=== PATIENT | male | born 1950 | race Caucasian/White ===

== ENCOUNTER 2018-07-09 11:38 | Outpatient (CLI) | payer MEDICARE, OTHER, SELFPAY ==
[2018-07-09 12:59] LABS: Hemoglobin A1C 6.4 % (4.5-6.2)
== END 2018-07-09 11:58 ==
LOC: LBO 11:39 → LOS 11:53
PROVIDERS: PCP Family Medicine; Visit Provider Family Medicine
DX: E11.9 Type 2 diabetes mellitus without complications (principal)
CPT/HCPCS: 36415; 83036

== ENCOUNTER 2019-01-13 10:28 | Outpatient (CLI) | payer MEDICARE, OTHER, SELFPAY ==
[2019-01-13 13:19] LABS: CREATININE 1.04 mg/dL (0.70-1.30); Potassium 4.3 mmol/L (3.5-5.1)
[2019-01-13 13:31] LABS: Hemoglobin A1C 6.8 % (4.5-6.2)
== END 2019-01-13 10:48 ==
PROVIDERS: PCP Family Medicine; Visit Provider Family Medicine
DX: E11.9 Type 2 diabetes mellitus without complications (principal)
CPT/HCPCS: 36415; 82565; 83036; 84132

== ENCOUNTER 2019-05-01 09:39 | Outpatient (CLI) | payer MEDICARE, OTHER, SELFPAY ==
--- NOTE | 2019-05-01 09:40 | DI.RAD_ITS ---
SYMPTOM/DIAGNOSIS: WORSENING CHRONIC LBP M54.9, DORSALGIA LUMBAR SPINE: There are prominent osteophytes in the lower thoracic region projecting anteriorly and toward the right. Prominent osteophytes are also seen in the lower lumbar spine, at L4-5 and L5- S1. There has been a previous L5 laminectomy. The disc spaces are relatively well maintained. There is no scoliosis or spondylolisthesis. IMPRESSION: Severe degenerative changes. Previous surgery of the lower lumbar spine.
== END 2019-05-01 09:59 ==
PROVIDERS: PCP Family Medicine; Visit Provider Family Medicine
DX: M54.5 Low back pain (principal); Z98.890 Other specified postprocedural states; M47.817 Spondylosis without myelopathy or radiculopathy, lumbosacral region
CPT/HCPCS: 72110

== ENCOUNTER 2019-07-14 10:47 | Outpatient (CLI) | payer MEDICARE, OTHER, SELFPAY ==
[2019-07-14 14:02] LABS: Hemoglobin A1C 6.1 % (4.5-6.2)
== END 2019-07-14 11:07 ==
PROVIDERS: PCP Family Medicine; Visit Provider Family Medicine
DX: E11.65 Type 2 diabetes mellitus with hyperglycemia (principal); E11.8 Type 2 diabetes mellitus with unspecified complications
CPT/HCPCS: 36415; 83036

== ENCOUNTER 2020-04-01 03:02 | Outpatient (CLI) | payer OTHER, MEDICARE, SELFPAY ==
[2020-04-01 09:32] LABS: COMMENT (LAB VIEW ONLY) 84.86 mg/dL; Microalb ug/mg Crea 6.2 ug/mg Cr
[2020-04-01 09:48] LABS: Hemoglobin A1C 6.2 % (3.8-5.6)
[2020-04-01 09:53] LABS: CREATININE 1.15 mg/dL (0.70-1.30); Potassium 4.3 mmol/L (3.5-5.1)
== END 2020-04-01 03:22 ==
PROVIDERS: PCP Family Medicine; Visit Provider Family Medicine
DX: E11.9 Type 2 diabetes mellitus without complications (principal); R73.9 Hyperglycemia, unspecified
CPT/HCPCS: 36415; 82043; 82565; 82570; 83036; 84132

== ENCOUNTER 2021-01-17 22:07 | Outpatient (REF) | payer OTHER, SELFPAY ==
[2021-01-17 22:11] LABS: Hemoglobin A1C 6.6 % (<5.7)
[2021-01-17 22:16] LABS: CREATININE 1.1 mg/dL (0.70-1.30); Calculated LDL 87 mg/dL (<100); Cholesterol 175 mg/dL (<200); HDL Cholesterol 71 mg/dL (40-60); Potassium 4.3 mmol/L (3.5-5.1); Triglyceride 87 mg/dL (<150)
== END 2021-01-17 22:08 | disposition home or self-care (01) ==
LOC: LBN 22:07
PROVIDERS: PCP Family Medicine; Visit Provider Family Medicine
DX: I10 Essential (primary) hypertension (principal); E78.5 Hyperlipidemia, unspecified; R73.9 Hyperglycemia, unspecified
CPT/HCPCS: 80061; 82565; 83036; 84132

== ENCOUNTER → 2021-02-24 08:16 | Outpatient (BNVA) | payer OTHER, SELFPAY | PROVIDERS: PCP Family Medicine; Referring Provider Family Medicine; Visit Provider Student in an Organized Health Care Education/Training Program ==

== ENCOUNTER 2021-02-24 15:29 | Outpatient (CLI) | payer OTHER, SELFPAY ==
--- NOTE | 2021-02-24 08:45 | DI.RAD_ITS ---
Exam(s) XR HIP PELVIS ADULT BL EXAM: XR HIP PELVIS ADULT BL CLINICAL HISTORY: eval bilateral hip pain, low back pain, M54.5, M25.551, M25.552. TECHNIQUE: 2D digital imaging was performed. COMPARISON: CT RENAL COLIC WO CONTRAST from 10/18/2013 CR XR lumbar spine complete from 05/01/2019 FINDINGS: There are degenerative changes in the hips bilaterally with joint space narrowing and periarticular s purring present. Postsurgical and/or posttraumatic changes are again seen in the left femur which ar e unchanged. No acute fracture or dislocation is seen. Sacroiliac joints and symphysis pubis are in tact. No suspicious lytic or sclerotic lesions are seen. Dystrophic calcifications are again seen i n the soft tissues adjacent to the left hip. IMPRESSION: Mild degenerative changes in the hips bilaterally. Stable posttraumatic and/or postsurgical changes in the left femur. DATA REPOSITORY: RADIATION DOSE DELIVERED:
--- NOTE | 2021-02-24 08:45 | DI.RAD_ITS ---
Exam(s) XR LUMBAR SPINE COMPLETE EXAM: XR LUMBAR SPINE COMPLETE CLINICAL HISTORY: low back and buttock pain, h/o surgery, M54.5, Darío hip pain, M25.551,. TECHNIQUE: 2D digital imaging was performed. COMPARISON: CR XR lumbar spine complete from 05/01/2019 FINDINGS: There are 5 lumbar type vertebral bodies. No acute fractures or subluxations. No spondylolysis or s pondylolisthesis. The disc heights are well maintained. There are endplate osteophytes throughout t he lumbar spine. Degenerative changes of the facets are seen at L3-4, L4-5 and L5-S1. Vascular calc ifications are present. IMPRESSION: Moderate degenerative changes in the lumbar spine. DATA REPOSITORY: RADIATION DOSE DELIVERED:
== END 2021-02-24 15:49 ==
PROVIDERS: PCP Family Medicine; Visit Provider Student in an Organized Health Care Education/Training Program
DX: M54.5 Low back pain (principal); M25.551 Pain in right hip; M25.552 Pain in left hip; Z98.890 Other specified postprocedural states; M47.817 Spondylosis without myelopathy or radiculopathy, lumbosacral region; M16.0 Bilateral primary osteoarthritis of hip; M47.816 Spondylosis without myelopathy or radiculopathy, lumbar region; E11.69 Type 2 diabetes mellitus with other specified complication
CPT/HCPCS: 73521; 99203; 72110

== ENCOUNTER 2021-03-17 03:25 | Outpatient (CLI) | payer OTHER, SELFPAY ==
--- NOTE | 2021-03-17 09:45 | DI.MRI_ITS ---
Exam(s) MR LUMBAR SPINE WO EXAM: MR LUMBAR SPINE WO INDICATION: low back pain, lumbar spondylosis, m47.816. COMPARISON: CR XR lumbar spine complete from 05/01/2019 CR XR lumbar spine complete from 05/01/2019 TECHNIQUE: MR examination of the lumbosacral spine was performed according to the usual protocol. FINDINGS: There is no evidence of a fracture in the lumbar region. There are prominent Schmorl's nodes of the L 3 vertebral body with associated vertebral signal abnormality consistent with disc degeneration. There is a bilateral L5 spondylolysis with approximately 10 percent anterior spondylolisthesis of L5 on S1. S1 is partially lumbarized. There is a prior laminectomy. The conus medullaris appears intact. There is an unremarkable appearance of the intervertebral discs, spinal canal, and neural foramina at T11-12, T12-L1, and L1-2. Changes of disc degeneration noted at L2-3 without associated disc herniation, central canal spinal s tenosis, or neural foraminal stenosis At L3-4, there is mild disc bulge and there is moderate facet hypertrophy, there is moderate central canal spinal stenosis at this level. The left neural foramen is mildly narrowed. Right neural obed en appears intact. At L4-5, there is disc bulge without focal disc herniation. There is bilateral neural foraminal sten osis. There is borderline central canal stenosis. At L5-S1, there is bilateral neural foraminal stenosis. Spinal canal appears widely patent. No disc herniation. IMPRESSION: Multilevel degenerative changes and prior laminectomy at L4-5 and L5-S1. Multilevel neural foraminal and central spinal canal narrowing, please see above discussion for findi ngs at individual levels.
== END 2021-03-17 03:45 ==
PROVIDERS: PCP Family Medicine; Visit Provider Student in an Organized Health Care Education/Training Program
DX: M47.816 Spondylosis without myelopathy or radiculopathy, lumbar region (principal); M51.36 Other intervertebral disc degeneration, lumbar region
CPT/HCPCS: 72148

== ENCOUNTER 2021-04-13 00:35 | Outpatient (CLI) | payer OTHER, SELFPAY ==
--- NOTE | 2021-04-13 08:45 | DI.RAD_ITS ---
Exam(s) RF JOINT INJECTION FLUORO GUID EXAM: RF JOINT INJECTION FLUORO GUID CLINICAL HISTORY: R HIP PAIN,PRIMARY OA,M25.551 TECHNIQUE: Fluoroscopy provided. Radiologist not present. CONTRAST MATERIAL: None COMPARISON: No exams were available for comparison FINDINGS: Fluoroscopy was provided for Dr. Lee during right hip joint injection. Submitted image(s) reveal placement of needle into the articular aspect of the hip at the level of th e lateral femoral head. Intra-articular contrast is injected Please refer to the procedure report for complete details. Cumulative Dose: wili Cadena=1.25 mGy IMPRESSION: RADIATION DOSE DELIVERED:
--- NOTE | 2021-04-13 15:23 | W.PROCNOTE ---
Date of service: 04/13/21 Time of Service: 15:23 Procedure Note Date of procedure: 04/13/21 Procedure: Right Hip Injection with Fluoroscopic Guidance Surgeon/Proceduralist/Physician: Donell Lee Procedure Diagnosis: Right Hip Osteoarthritis Procedure Indications: Storm has had persistent pain of the RIGHT hip and groin. Noninvasive measures have been tried. To serve as both diagnostic and therapeutic, an injection under fluoroscopy was recommended. I had discussed the risks of the procedure and the patient elected to proceed. Procedure Description: Storm was greeted in the flouroscopy room. The correct side was identified and the consent was reviewed with the patient and signed. The patient was then placed in the supine position on the fluoroscopy table. The RIGHT hip was then prepped with Chloraprep. The anterolateral injection starting point was identiifed by bony landmarks and fluoroscopy. The skin and soft tissue in the tract of the injection was anesthetized with 1% Lidocaine. A spinal needle was then inserted deep into the hip joint at the level of the lateral femoral neck under fluoroscopic guidance. A small amount of Omnipaque solution was injected to confirm intraarticular placement. Once confirmed, the hip was injected with 6cc of 0.5% Bupivicaine and 80mg of Depo-Medrol. A bandaid was placed on the injection site. The patient tolerated the procedure well and noted improvement in pre-injection pain.
[2021-04-13] MEDS: Bupivacaine 0.5% Pres-Free 10 ML VIAL IJ (15:28)
[2021-04-13] MEDS: Omnipaque 300 MG/ML 10 ML BTL IJ (15:29)
[2021-04-13] MEDS: methylPREDNISolone ACETATE 80 MG/ML VIAL IM (15:29)
== END 2021-04-13 00:55 ==
PROVIDERS: PCP Family Medicine; Visit Provider Student in an Organized Health Care Education/Training Program
DX: M16.11 Unilateral primary osteoarthritis, right hip (principal); M25.551 Pain in right hip; R10.31 Right lower quadrant pain
CPT/HCPCS: 20610; 77002; J1040

== ENCOUNTER → 2021-05-04 08:25 | Outpatient (BNVA) | payer OTHER, SELFPAY | PROVIDERS: PCP Family Medicine; Referring Provider Family Medicine; Visit Provider Student in an Organized Health Care Education/Training Program | DX: M54.31 Sciatica, right side (principal); M47.816 Spondylosis without myelopathy or radiculopathy, lumbar region; M16.0 Bilateral primary osteoarthritis of hip; Z98.890 Other specified postprocedural states | CPT/HCPCS: 99213 ==

== ENCOUNTER 2023-01-23 10:02 | Outpatient (CLI) | payer MEDICARE, SELFPAY ==
[2023-01-23 12:46] LABS: CREATININE 1.2 mg/dL (0.70-1.30); Calculated LDL 79 mg/dL (<100); Cholesterol 174 mg/dL (<200); Estimated GFR 64.65 (mL/min/1.73m2); HDL Cholesterol 69 mg/dL (40-60); Potassium 4.6 mmol/L (3.5-5.1); Triglyceride 130 mg/dL (<150)
== END 2023-01-23 10:03 | disposition home or self-care (01) ==
LOC: LOS 10:03
PROVIDERS: PCP Family Medicine; Visit Provider Family Medicine
DX: I10 Essential (primary) hypertension (principal); E78.5 Hyperlipidemia, unspecified
CPT/HCPCS: 36415; 80061; 82565; 84132

== ENCOUNTER 2023-04-15 01:18 | Outpatient (CLI) | payer MEDICARE, SELFPAY ==
--- NOTE | 2023-04-15 08:00 | DI.NM_ITS ---
APPROVED REPORT Exam: Pharmacologic Patient Location: Out-Patient Room/Bed: Stress Nurse: Avril Aguillon RN Ordering Provider:TIFFANIE HOOVER, Contact Number: [phone] BMI: 34.60 Baseline Rhythm: Sinus Bradycardia Indications: PERALTA, Chest pain Medical History Medical History: ETOH abuse, DM, BPH, back pain, COPD, Depression, ED, fatigue, sleep apnea, previous smoker (quit 2001) Cardiac Medications: Tamsulosin, losartan, duloxetine Allergies: Serotonin 5HT-3 antagonist, ipatropium, clindamycin, nabumetone, SSRI's Cardiac Risk Factors: Family hx, diabetes, former smoker, obesity Previous Cardiac Procedures: None Pretest Chest Pain Characteristics: None Exercise History: Sedentary Physical Disabilities: Left arm and left leg Lung Sounds: Clear to auscultation Heart Sounds: Bradycardia Stress Test Details Test: Exercise stress converted to pharmacologic stress due to failure to obtain a diagnostic stress test. Reason for pharmacologic stress test: changed from exercise stress test due to inability to reach t arget heart rate. Nuclear Acquisition: Rest Tc-99m/Stress Tc-99m 1 day Rest Isotope: Tc-99m Sestamibi. Dose: 11.0 Date: 04/15/2023 Injection Time: 1107 Stress Isotope: Tc-99m Sestamibi. Dose: 33.5 Date: 04/15/2023 Injection Time: 1300 HR Resting HR Supine: 51 bpm Max Heart Rate (APMHR): 149.844773 bpm Resting HR Standin bpm Target HR (85% APMHR): 126.099040 bpm Max HR Achieved: 119 bpm % of APMHR: 79.87 Recovery HR: 81 bpm HR response to stress: Blunted HR response to stress BP Resting BP Supine: 122/76 mmHg Resting BP Standin/68 mmHg Max BP: 162/74 mmHg Recovery BP: 132/68 mmHg BP response to stress: Normal blood pressure response to stress. ECG Resting ECG: Sinus Bradycardia Ectopy: Rare PVC Stress ECG: Sinus Tachycardia ST Change: Nondiagnostic low heart rate Arrhythmia: Rare PVC Recovery ECG: Sinus Rhythm Recovery ST Change: Nondiagnostic low heart rate Recovery Arrhythmia: Rare PVC Clinical Reason for Termination: Fatigue, Dyspnea Stress Symptoms: Dyspnea, General Fatigue Highest Stage Reached: Stage 2: 2.5 mph at 12% grade. Angina Score: None Rate Pressure Product: [id number] Stress ECG Conclusion 1. Resting electrocardiogram was within normal limits 2. Patient underwent testing using a combination of low-level exercise and pharmacologic stress with regadenoson 3. Peak heart rate achieved was 80% of predicted for age 4. The electrocardiographic portion of the test was nondiagnostic 5. See MPI report Stevens Treadmill Score is which is Low risk. Stress Test Summary STAGE Time (mins) Speed (mph) Grade (%) HR BP SpO2 SYMPTOMS METS Supine 51 122/76 95 Standing 57 122/68 95 1 3 1.7 10 103 142/87 88 Mod SOB 4.5 2 6 2.5 12 110 Mod-severe SOB, fatigue 7 1 min post Lexiscan injection 111 140/90 SOB resolved 3 min post Lexiscan injection 81 162/74 6 min post Lexiscan injection 71 132/68 97 Patient transitioned to walking renee at a speed on 1.0 mph and 0% grade due to inability to reach tar get HR dues to fatigue and SOB. MPI Conclusion Myocardial perfusion is normal. There is no ischemia or evidence of prior infarction EF 66%, wall motion is normal Radiologist Interpretation Radiologist agrees with Traveling Engineer's Interpretation. Radiologist Interpretation by: Kayli Malcolm MD Interpretation Date/Time: 04/15/2023 16:34:09
[2023-04-15] MEDS: Regadenoson 0.4 MG/5 ML SYR IVP (13:31)
== END 2023-04-15 01:38 ==
LOC: DI 01:18
PROVIDERS: PCP Family Medicine; Visit Provider Family Medicine
DX: R07.9 Chest pain, unspecified (principal)
CPT/HCPCS: 78452; 93016; 93018; 93017; J2785

== ENCOUNTER → 2023-06-12 08:04 | Outpatient (BNVA) | payer MEDICARE, SELFPAY | PROVIDERS: PCP Family Medicine; Referring Provider Family Medicine; Visit Provider Nurse Practitioner Adult Health | DX: G56.01 Carpal tunnel syndrome, right upper limb (principal) | CPT/HCPCS: 95908; 99203; 99214 ==

== ENCOUNTER 2023-06-25 12:44 | Emergency (ER) | payer MEDICARE, SELFPAY ==
[2023-06-25 12:48] VITALS: BP 122/57; PULSE 66; RESP 18; TEMP 36.8; O2SAT 99
--- NOTE | 2023-06-25 13:23 | ED.GENADUL_ITS ---
Discharge Plan Disposition Patient Disposition: Home Discharge Details Clinical Impression: Open finger fracture Primary Care Provider: Deandre Hernandez ED Provider: Sultana Mendoza Home Meds and New Rx's Prescriptions: New cephalexin 500 mg capsule 500 mg PO Q6H 7 Days Qty: 28 0RF Continued methylcellulose (laxative) Powder See Rx Instructions PO DAILY Patient Comments: 1 tsp PO BID; Rx Instructions: 1 tsp PO daily; (DME) blood-glucose meter [OneTouch UltraMini] 1 EACH kit 1 ea Miscellaneous DAILY Qty: 1 (DME) lancets [OneTouch UltraSoft Lancets] 1 EACH misc 1 ea Miscellaneous DAILY Qty: 100 Rx Instructions: pls dispense ultra mini lancets. Dx: TYpe II DM acetaminophen [Tylenol] 325 MG tablet 650 mg PO PRN Patient Comments: 16 pt states he is taking this around 9am, 2pm, hs sometimes 4hprn.HE ibuprofen 200 MG capsule 600 mg PO HS PRN (DME) OneTouch Ultra Blue Test Strip Strip See Rx Instructions .ROUTE .MEDSUPPLY Qty: 100 3RF Rx Instructions: test daily triamcinolone acetonide 0.1 % cream 1 applic Topical BID PRN (Reason: rash) Qty: 45 1RF Rx Instructions: apply to rash on testicles BID prn duloxetine 30 mg capsule,delayed release(DR/EC) 30 mg PO BID Qty: 180 3RF losartan 25 mg tablet 25 mg PO DAILY Qty: 90 3RF tamsulosin 0.4 mg capsule 0.8 mg PO HS Qty: 180 3RF Rx Instructions: dose increase 05/14/ MJS Discharge Instructions Instructions: Finger Fracture (ED) Additional Instructions: Keep wound clean and dry Keep in bulky dressing for the next several days Call orthopedics if you do not hear from them tomorrow for follow-up Take the antibiotic every 6 hours while awake Have given you several tablets of oxycodone, take this for pain uncontrolled with Tylenol Should you develop fever, chills, worsening pain, please return to the emergency department Referrals: Donell Lee MD [ [facility] STAFF PHYSICIAN] - Discharge Data Discharge Date/Time-TO BE ENTERED AT DEPARTURE: 06/25/23 15:44 Medical Decision Making 73-year-old gentleman presents with injury to right second through fourth digits on a circular saw just prior to arrival. Tetanus up-to-date. Third finger feels popping sensation and deep is laceration, able to flex and extend completely, neurovascularly intact, superficial lacerations to the PIP of the fourth and second digits as well Case discussed with Dr. Lee, recommends washout and suture, will place bulky dressing in the setting of active bleeding and wait for splint placement at this time We will refer back to orthopedics We will place on Keflex, first dose given in the emergency department Tetanus up-to-date Return precautions reviewed and patient expressed understanding Medical Records Medical records reviewed: Yes I reviewed the patient's medical records. HPI General Date/Time Provider Initiated Documentation: 06/25/23 13:02 . HPI Narrative: This 73-year-old male presents with laceration to right third digit. Denies any additional injuries. States he hears a popping sensation when he flexes and extends his finger. States the injury occurred with saw circular saw. Tetanus up-to-date. States he is able to feel sensation distally. Event occurred just prior to arrival. Related Data Home Medications Medication Instructions Recorded Confirmed blood-glucose meter (OneTouch ##1 07/11/15 06/25/23 UltraMini kit) lancets (OneTouch UltraSoft #100 ea 07/13/15 06/25/23 Lancets) acetaminophen 325 mg tablet 650 mg PO PRN 10/31/15 06/25/23 (Tylenol) ibuprofen 200 mg capsule 600 mg PO HS PRN 01/10/18 06/25/23 methylcellulose (laxative) See Rx Instructions PO DAILY 01/15/20 06/25/23 blood sugar diagnostic (OneTouch #100 ea 10/06/20 06/25/23 Ultra Blue Test Strip) triamcinolone acetonide 0.1 % 1 applic topical BID PRN rash #45 05/21/22 06/25/23 topical cream grams duloxetine 30 mg capsule,delayed 30 mg PO BID #180 caps 01/14/23 06/25/23 release losartan 25 mg tablet 25 mg PO DAILY #90 tabs 02/07/23 06/25/23 tamsulosin 0.4 mg capsule 0.8 mg PO HS #180 caps 05/04/23 06/25/23 cephalexin 500 mg capsule 500 mg PO Q6H 7 days #28 caps 06/25/23 Previous Rx's Medication Instructions Recorded blood sugar diagnostic (OneTouch #100 ea 10/06/20 Ultra Blue Test Strip) triamcinolone acetonide 0.1 % 1 applic topical BID PRN rash #45 05/21/22 topical cream grams duloxetine 30 mg capsule,delayed 30 mg PO BID #180 caps 01/14/23 release losartan 25 mg tablet 25 mg PO DAILY #90 tabs 02/07/23 tamsulosin 0.4 mg capsule 0.8 mg PO HS #180 caps 05/04/23 cephalexin 500 mg capsule 500 mg PO Q6H 7 days #28 caps 06/25/23 Allergies Allergy/AdvReac Type Severity Reaction Status Date / Time Serotonin 5HT-3 Antagonists Allergy Unknown did not Verified 06/27/23 11:17 affect breathing, unsure of reaction Ipratropium Analogues AdvReac Intermediate sore throat Verified 06/27/23 11:17 clindamycin AdvReac Mild Nausea Verified 06/27/23 11:17 nabumetone AdvReac Mild Nausea Verified 06/27/23 11:17 General Stated Complaint: Laceration MARZENA: 4 PFSH All Active Problems (Updated 06/25/23 @ 15:31 by MARY Rosa) Open finger fracture (Acute) Type II diabetes mellitus with complication, uncontrolled (Chronic 02/17/08) Tobacco use disorder (Acute) stopped smoking 11/29/01 Swollen breast (Acute 05/27/05) 0.5 cm mass at 5 o'clock Spinal stenosis (Acute 03/01/11) Sleep apnea (Acute 11/02/09) Shoulder pain (Acute 12/25/05) MRI 12/31; supraspinatus tear on greater tubercle Rotator cuff tear, right (Acute 05/13/15) Lumbago (Acute 09/26/01) MRI 04/28=severe spinal stenosis Knee pain (Acute) left cruciate tear Fatigue (Acute) ED (erectile dysfunction) (Acute 06/13/09) Depression (Acute) Cystitis, acute (Acute 09/26/00) x 3 Chest pain (Acute 09/26/97) Presumed reflux Cerebral palsy (Acute 09/28/08) Cataract (Acute) left IOL Calculus of kidney (Acute) recurrent UTI's w/ left nephrolithiasis COPD (chronic obstructive pulmonary disease) (Acute 06/13/09) BPH without urinary obstruction (Acute) Diabetes mellitus (Chronic) Back pain (Chronic) likely recurrent spinal stenosis Status post wrist surgery (Acute) Status post foot surgery (Acute) Status post bunionectomy (Acute) History of toe surgery (Acute) Chronic prostatitis (Acute) Otitis media, left (Acute) Sensation of fullness in left ear (Acute) Acute diffuse otitis externa of left ear (Acute) Abnormal auditory perception (Acute) Bilateral hip pain (Acute) Bilateral primary osteoarthritis of hip (Acute) Lumbar spondylosis (Acute) Right sided sciatica (Acute) Alcohol intake above recommended sensible limits (Acute) Family history of pancreatic cancer (Acute) Dizziness (Acute) Cerumen impaction (Acute) Right carpal tunnel syndrome (Acute) Surgical History BACK SURGERY 2001-L4-5 DECOMPRESSION FOR SPINAL STENOSIS BUNIONECTOMY (~1993) FEMUR FX 1971 WITH LATER SURGERY TO REMOVE PIN LEFT WRIST SURGERY 06/13/09 Nasal septoplasty 2009 RIGHT FOOT SURGERY 06/13/[address] [facility] Family History Mother , 67 Pancreatic cancer Breast cancer Sister , 57 Pancreatic cancer Father , 76 Heart disease COPD (chronic obstructive pulmonary disease) Maternal Grandfather Cancer Paternal Grandfather , age 69 Heart disease Maternal Grandmother Cancer Paternal Grandmother , age 73 Diabetes Daughter No problems noted. Daughter No problems noted. Social History Smoking/Tobacco Use Status: Former Tobacco Use tobacco type: cigarettes Quit Date: 11/29/01 Tobacco: How many years used: 37 Smokeless tobacco user: other (Cigarette ) Quit status: has quit before Second Hand Exposure: Yes Smoking risk assessment performed?: Yes Alcohol Intake: current Alcohol Intake frequency: a few times a week Alcohol type: wine and hard liquor Drug use: Never Substance use type: does not use Caregiver/Support person: No Household members: spouse and other Details: Grandchild Housing: house Communication Needs: None Do you need help understanding health information?: Rarely Pets and animals: No Sexually active: No Do you think of yourself as: straight/heterosexual Current gender identity: male What is your relationship status?: How often do you talk on the phone with friends or family?: three or more times per week How often do you get together with friends or relatives?: once per week How often do you attend scientologist or oriental orthodox services?: 4 or more times per year Do you belong to any clubs or organized social groups?: no Panel score (0-1 are the most socially isolated patients): 3 What type of physical activity do you participate in: none Frequency: does not exercise Kayli/Mormon: Worship Special kayli needs: No Seatbelt use: always Helmet use: No Drive intox or ride w/intox special client bus driver: No Course Vital Signs Vital signs: Vital Signs Temperature 36.8 C 06/25/23 12:48 Pulse 66 06/25/23 12:48 Respiratory Rate 18 06/25/23 12:48 Blood Pressure 122/57 L 06/25/23 12:48 Pulse Oximetry 99 06/25/23 12:48 Temperature 36.8 C 06/25/23 12:48 Temperature Source Oral 06/25/23 12:48 Pulse 66 06/25/23 12:48 Respiratory Rate 18 06/25/23 12:48 Respiratory Effort Normal 06/25/23 13:03 Blood Pressure 122/57 L 06/25/23 12:48 Blood Pressure Position Sitting 06/25/23 12:48 Pulse Oximetry 99 06/25/23 12:48 Oxygen Delivery Method Room Air 06/25/23 12:48 Oxygen Flow Rate 0 06/25/23 12:48 Pain Level 4 06/25/23 12:48 Procedures Laceration Laceration 1: Site: hand Side (If applicable): right Size (cm): 2 Description: irregular Local Anesthetic: Bupivicaine 0.5% Amount of anesthesia used (mL): 6 Pre-repair: wound explored, irrigated extensively and wound margins revised Skin layer closed with: other Size (cm): 4-0 Number of sutures: 7 Technique: simple, interrupted and other (vertical mattress) PAWSS Have you Been Recently Intoxicated or Drunk Within the Last 30 days?: No Have you Ever Experienced Previous Episodes of Alcohol Withdrawal?: No Have you ever Experienced Withdrawal Seizures?: No Have you ever Experienced Delirium Tremens(DT)s?: No Have you ever undergone Alcohol Rehabilitation Treatment (i.e, inpt ot outpatient treatment programs)?: No Have you ever Experienced Blackouts?: No Have you ever Combined Alcohol with other Downers within the last 90 days?: No Have you ever Combined Alcohol with any other Substance of Abuse during the last 90 days?: No Positive Blood Alcohol level on Presentation? [PCS.BAL]: No Evidence of Increased Autonomic Activity (i.e. HR>120, tremor, sweating, agitation, nausea)?: No Result: 0
--- NOTE | 2023-06-25 13:50 | DI.RAD_ITS ---
Exam(s) XR FINGER RT MIDDLE EXAM: XR FINGER RT MIDDLE CLINICAL HISTORY: circular sas vs PIP. TECHNIQUE: 2D digital imaging was performed of the right finger. Three views were obtained. PA/AP, oblique, and lateral views were obtained. COMPARISON: No exams were available for comparison FINDINGS: BONES: There is an acute displaced fracture of the posterior and ulnar aspect of the head of the prox imal phalanx of the 3rd finger. There is associated soft tissue swelling and a laceration. No radio paque foreign bodies are seen. No bony destructive lesion is seen. JOINTS: No dislocation present. Degenerative changes are seen in the hand and wrist. SOFT TISSUE: Normal. IMPRESSION: Comminuted fracture of the posterior and ulnar aspect of the head of the proximal phalanx of the 3rd finger. DATA REPOSITORY: RADIATION DOSE DELIVERED:
[2023-06-25] MEDS: Cephalexin 500 MG CAP PO (13:54)
[2023-06-25] MEDS: Bupivacaine 0.5% Pres-Free 30 ML VIAL IJ (13:55)
[2023-06-25 15:39] VITALS: BP 146/90; PULSE 88; RESP 16; O2SAT 98
== END 2023-06-25 15:44 | disposition home or self-care (01) ==
PROVIDERS: Emergency Provider Physician Assistant; PCP Family Medicine
DX: S62.612B Displaced fracture of proximal phalanx of right middle finger, initial encounter for open fracture (principal); S61.210A Laceration without foreign body of right index finger without damage to nail, initial encounter; S61.214A Laceration without foreign body of right ring finger without damage to nail, initial encounter; W31.2XXA Contact with powered woodworking and forming machines, initial encounter; E11.9 Type 2 diabetes mellitus without complications; F17.200 Nicotine dependence, unspecified, uncomplicated
CPT/HCPCS: 12001; 99283; 73140; 99284

== ENCOUNTER → 2023-06-27 11:09 | Outpatient (BNVA) | payer MEDICARE, SELFPAY | PROVIDERS: PCP Family Medicine; Referring Provider Family Medicine | DX: S62.612B Displaced fracture of proximal phalanx of right middle finger, initial encounter for open fracture (principal); W27.0XXA Contact with workbench tool, initial encounter | CPT/HCPCS: 99213 ==

== ENCOUNTER 2023-07-03 11:25 | Outpatient (REF) | payer MEDICARE, SELFPAY | END 2023-07-03 11:26 | disposition home or self-care (01) | LOC: LBN 11:25 | PROVIDERS: PCP Family Medicine; Visit Provider Nurse Practitioner Family | DX: S60.414D Abrasion of right ring finger, subsequent encounter (principal); L08.89 Other specified local infections of the skin and subcutaneous tissue | CPT/HCPCS: 87070; 87205 ==

== ENCOUNTER → 2023-07-04 09:08 | Outpatient (BNVA) | payer MEDICARE, SELFPAY | PROVIDERS: PCP Family Medicine; Referring Provider Family Medicine; Visit Provider Student in an Organized Health Care Education/Training Program | DX: S62.612D Displaced fracture of proximal phalanx of right middle finger, subsequent encounter for fracture with routine healing (principal); S61.210D Laceration without foreign body of right index finger without damage to nail, subsequent encounter; W27.0XXD Contact with workbench tool, subsequent encounter | CPT/HCPCS: 99213 ==

== ENCOUNTER 2023-07-08 12:00 | Outpatient (CLI) | payer MEDICARE, SELFPAY ==
--- NOTE | 2023-07-08 09:15 | DI.RAD_ITS ---
Exam(s) XR FINGER RT MIDDLE EXAM: XR FINGER RT MIDDLE CLINICAL HISTORY: RMF open frx. TECHNIQUE: 2D digital imaging was performed. Three views. COMPARISON: CR XR FINGER RT MIDDLE from 06/25/2023 FINDINGS: BONES: No change in fracture fragments seen at the dorsal aspect at the distal aspect of the proximal phalanx. No bony destructive lesion is seen. JOINTS: No dislocation present. Degenerative changes right over of the distal interphalangeal joint. SOFT TISSUE: Swelling dorsal a at level of PIP joint.. IMPRESSION: Stable appearance of fracture fragments. DATA REPOSITORY: RADIATION DOSE DELIVERED:
== END 2023-07-08 12:01 | disposition home or self-care (01) ==
LOC: DIORS 12:00
PROVIDERS: PCP Family Medicine; Referring Provider Family Medicine; Visit Provider Student in an Organized Health Care Education/Training Program
DX: S62.612D Displaced fracture of proximal phalanx of right middle finger, subsequent encounter for fracture with routine healing; X58.XXXD Exposure to other specified factors, subsequent encounter; G56.01 Carpal tunnel syndrome, right upper limb
CPT/HCPCS: 99213; 73140

== ENCOUNTER → 2023-07-15 10:19 | Outpatient (BNVA) | payer MEDICARE, SELFPAY | PROVIDERS: PCP Family Medicine; Referring Provider Family Medicine | DX: S62.612D Displaced fracture of proximal phalanx of right middle finger, subsequent encounter for fracture with routine healing (principal); X58.XXXD Exposure to other specified factors, subsequent encounter | CPT/HCPCS: 99213 ==

== ENCOUNTER 2023-07-17 14:14 | Emergency (ER) | payer MEDICARE, SELFPAY ==
[2023-07-17 14:18] VITALS: BP 118/68; PULSE 55; RESP 18; TEMP 36.4; O2SAT 98
--- NOTE | 2023-07-17 14:34 | ED.GENADUL_ITS ---
Discharge Plan Disposition Patient Disposition: Home Condition: Improving Discharge Details Clinical Impression: Open fracture of middle phalanx of right index finger with delayed healing, Trigger finger, left middle finger Primary Care Provider: Deandre Hernandez ED Provider: Veronica Triplett Home Meds and New Rx's Prescriptions: No Action methylcellulose (laxative) Powder See Rx Instructions PO DAILY Patient Comments: 1 tsp PO BID; Rx Instructions: 1 tsp PO daily; (DME) blood-glucose meter [OneTouch UltraMini] 1 EACH kit 1 ea Miscellaneous DAILY Qty: 1 (DME) lancets [OneTouch UltraSoft Lancets] 1 EACH misc 1 ea Miscellaneous DAILY Qty: 100 Rx Instructions: pls dispense ultra mini lancets. Dx: TYpe II DM acetaminophen [Tylenol] 325 MG tablet 650 mg PO PRN Patient Comments: 1..16 pt states he is taking this around 9am, 2pm, hs sometimes 4hprn.HE ibuprofen 200 MG capsule 600 mg PO HS PRN (DME) OneTouch Ultra Blue Test Strip Strip See Rx Instructions .ROUTE .MEDSUPPLY Qty: 100 3RF Rx Instructions: test daily triamcinolone acetonide 0.1 % cream 1 applic Topical BID PRN (Reason: rash) Qty: 45 1RF Rx Instructions: apply to rash on testicles BID prn duloxetine 30 mg capsule,delayed release(DR/EC) 30 mg PO BID Qty: 180 3RF losartan 25 mg tablet 25 mg PO DAILY Qty: 90 3RF tamsulosin 0.4 mg capsule 0.8 mg PO HS Qty: 180 3RF Rx Instructions: dose increase /18/20 MJS Discharge Instructions Instructions: Finger Fracture (ED), Trigger Finger (ED), Chronic Wounds (ED) Additional Instructions: 1. Continue to wash the wound with mild soap and water or dilute hydrogen peroxide and warm tap water. 2. Follow-up with Dr. Lee's office on Saturday the . If you have signs of infection including increasing pain, increasing redness, increased swelling or warmth or swollen lymph nodes under your right armpit, return here earlier or contact Dr. Lee's office. Discharge Data Discharge Physician: Veronica Triplett Medical Decision Making This is a 73-year-old male with history of cerebral palsy and mild left-sided weakness who had an open fracture of the right middle finger and was treated with several antibiotics which she discontinued several days early. He has been followed by Dr. Lee. Today he tripped and reinjured the finger and now is having trouble extending it. It appears that he has developed a trigger finger which may be coincidental to the open fracture and may be related in part to the swelling. Because he reinjured it we will gilles-ray it and I will consult orthopedics. He does not have signs of an active infection although he has continued warmth and mild erythema. Differential Diagnosis Differential Diagnosis: Open fracture possible reinjury, trigger finger Medical Records Medical records reviewed: Yes I reviewed the patient's medical records. Imaging Data Radiologic Study: Imaging: X-Ray (Right middle finger) Radiologist's impression: Stable appearance of fracture fragments dorsal to the head of the proximal phalanx of the middle finger. HPI General Date/Time Provider Initiated Documentation: 07/17/23 14:33 . Limitations to Documentation: no limitations . Information obtained by: patient and family . History of Present Illness with intensity rated at 5. HPI Narrative: Time seen was 14 34?5. The patient is a 73-year-old [id number] male who injured his right middle finger several weeks ago on a table saw. Initially he was seen in urgent care and placed on cephalexin and then on doxycycline. He was seen by Dr. Lee and was changed either to Bactrim and Flagyl or Augmentin and Flagyl it was difficult to tell from the note which mentioned both Bactrim and Augmentin. Several days ago he developed a pruritic rash and stopped both the antibiotics. Today he tripped and hit his right middle finger causing it to open slightly inside the existing wound on the dorsum of the right middle finger overlying the PIP joint, where he had his previous open fracture. He also felt it get stuck in a bent position. He was able to extend it using his left hand. He has no history of trigger finger. He does have a history of cerebral palsy with chronic left-sided weakness. He states that the pain and redness have improved. His pain is currently 5 out of 10 in severity is aggravated by movement. He has been texting cellulose of his finger to Dr. Lee as well as his office staff and does have a follow-up appointment in early July. He denies any other injury. He denies any numbness or tingling. He denies any axillary adenopathy. The patient denies any fevers or chills. He denies hitting his head. He is not on blood thinners. Related Data Home Medications Medication Instructions Recorded Confirmed blood-glucose meter (OneTouch ##1 07/11/15 07/17/23 UltraMini kit) lancets (OneTouch UltraSoft #100 ea 07/13/15 07/17/23 Lancets) acetaminophen 325 mg tablet 650 mg PO PRN 10/31/15 07/17/23 (Tylenol) ibuprofen 200 mg capsule 600 mg PO HS PRN 01/10/18 07/17/23 methylcellulose (laxative) See Rx Instructions PO DAILY 01/15/20 07/17/23 blood sugar diagnostic (OneTouch #100 ea 10/06/20 07/17/23 Ultra Blue Test Strip) triamcinolone acetonide 0.1 % 1 applic topical BID PRN rash #45 05/21/22 07/17/23 topical cream grams duloxetine 30 mg capsule,delayed 30 mg PO BID #180 caps 01/14/23 07/17/23 release losartan 25 mg tablet 25 mg PO DAILY #90 tabs 02/07/23 07/17/23 tamsulosin 0.4 mg capsule 0.8 mg PO HS #180 caps 05/04/23 07/17/23 Previous Rx's Medication Instructions Recorded blood sugar diagnostic (OneTouch #100 ea 10/06/20 Ultra Blue Test Strip) triamcinolone acetonide 0.1 % 1 applic topical BID PRN rash #45 05/21/22 topical cream grams duloxetine 30 mg capsule,delayed 30 mg PO BID #180 caps 01/14/23 release losartan 25 mg tablet 25 mg PO DAILY #90 tabs 02/07/23 tamsulosin 0.4 mg capsule 0.8 mg PO HS #180 caps 05/04/23 Allergies Allergy/AdvReac Type Severity Reaction Status Date / Time Serotonin 5HT-3 Antagonists Allergy Unknown did not Verified 07/15/23 10:26 affect breathing, unsure of reaction Ipratropium Analogues AdvReac Intermediate sore throat Verified 07/15/23 10:26 clindamycin AdvReac Mild Nausea Verified 07/15/23 10:26 nabumetone AdvReac Mild Nausea Verified 07/15/23 10:26 General Stated Complaint: Laceration MARZENA: 3 Review of Systems Narrative: see hpi Endocrine Comments: The patient does have a history of diabetes PFSH All Active Problems (Updated 07/17/23 @ 16:20 by Veronica Triplett MD) Open fracture of middle phalanx of right index finger with delayed healing (Acute) Trigger finger, left middle finger (Acute) PERALTA (dyspnea on exertion) (Acute) Open fracture of proximal phalanx of right middle finger (Acute) Tobacco use disorder (Acute) stopped smoking 11/29/01 Swollen breast (Acute 05/27/05) 0.5 cm mass at 5 o'clock Spinal stenosis (Acute 03/01/11) Sleep apnea (Acute 11/02/09) Shoulder pain (Acute 12/25/05) MRI 12/31; supraspinatus tear on greater tubercle Rotator cuff tear, right (Acute 05/13/15) Lumbago (Acute 09/26/01) MRI 04/28=severe spinal stenosis Knee pain (Acute) left cruciate tear Fatigue (Acute) ED (erectile dysfunction) (Acute 06/13/09) Depression (Acute) Cystitis, acute (Acute 09/26/00) x 3 Chest pain (Acute 09/26/97) Presumed reflux Cerebral palsy (Acute 09/28/08) Cataract (Acute) left IOL Calculus of kidney (Acute) recurrent UTI's w/ left nephrolithiasis COPD (chronic obstructive pulmonary disease) (Acute 06/13/09) BPH without urinary obstruction (Acute) Diabetes mellitus (Chronic) Back pain (Chronic) likely recurrent spinal stenosis Status post wrist surgery (Acute) Status post foot surgery (Acute) Status post bunionectomy (Acute) History of toe surgery (Acute) Chronic prostatitis (Acute) Otitis media, left (Acute) Sensation of fullness in left ear (Acute) Acute diffuse otitis externa of left ear (Acute) Abnormal auditory perception (Acute) Bilateral hip pain (Acute) Bilateral primary osteoarthritis of hip (Acute) Lumbar spondylosis (Acute) Right sided sciatica (Acute) Alcohol intake above recommended sensible limits (Acute) Family history of pancreatic cancer (Acute) Dizziness (Acute) Cerumen impaction (Acute) Right carpal tunnel syndrome (Acute) Surgical History BACK SURGERY 2001-L4-5 DECOMPRESSION FOR SPINAL STENOSIS BUNIONECTOMY (~1993) FEMUR FX 1972 WITH LATER SURGERY TO REMOVE PIN LEFT WRIST SURGERY 06/13/09 Nasal septoplasty 2009 RIGHT FOOT SURGERY 06/13/09 TOE SURGERY [facility] Family History Mother , 67 Pancreatic cancer Breast cancer Sister , 57 Pancreatic cancer Father , 76 Heart disease COPD (chronic obstructive pulmonary disease) Maternal Grandfather Cancer Paternal Grandfather , age 69 Heart disease Maternal Grandmother Cancer Paternal Grandmother , age 73 Diabetes Daughter No problems noted. Daughter No problems noted. Social History Smoking/Tobacco Use Status: Former Tobacco Use tobacco type: cigarettes Quit Date: 11/29/01 Tobacco: How many years used: 37 Smokeless tobacco user: other (Cigarette ) Quit status: has quit before Second Hand Exposure: Yes Smoking risk assessment performed?: Yes Alcohol Intake: current Alcohol Intake frequency: a few times a week Alcohol type: wine and hard liquor Drug use: Never Substance use type: does not use Caregiver/Support person: No Household members: spouse and other Details: Grandchild Housing: house Communication Needs: None Do you need help understanding health information?: Rarely Pets and animals: No Sexually active: No Do you think of yourself as: straight/heterosexual Current gender identity: male What is your relationship status?: How often do you talk on the phone with friends or family?: three or more times per week How often do you get together with friends or relatives?: once per week How often do you attend muslim or scientology services?: 4 or more times per year Do you belong to any clubs or organized social groups?: no Panel score (0-1 are the most socially isolated patients): 3 What type of physical activity do you participate in: none Frequency: does not exercise Kayli/Rastafarian: Evangelical Special kayli needs: No Seatbelt use: always Helmet use: No Drive intox or ride w/intox refrigerated company driver: No Exam Narrative Exam Narrative: The patient is a well-developed well-nourished male with mild left hemiparesis. He is normotensive. His heart rate is 55. He is not tachypneic. His temperature is 36.4 ?C his room air O2 sat was normal at 98%. Const General: cooperative, healthy appearing, comfortable, no acute distress, well developed, well groomed and well hydrated Nutritional Appearance: average body habitus and well nourished Orientation: alert, awake and oriented x3 HENMT Head: normal to inspection, normocephalic and atraumatic Ears: hearing grossly normal bilaterally and external ears normal General nose exam: external nose normal, nares normal and no nasal discharge Face and sinus: normal facial exam and face symmetric Eyes General: appearance normal, both eyes and all related structures Eyelids: eyelids normal Conjunctivae: conjunctivae normal Sclera: sclerae normal Cornea: corneas normal Pupils: PERRL EOM: EOM intact bilaterally and No nystagmus Neck Neck: normal visual inspection, full ROM, no lymphadenopathy, no meningeal signs, trachea midline and supple Lymphatic: no lymphadenopathy noted Chest Other: His chest is nontender. He has symmetric expansion. Resp Effort & Inspection: normal respiratory effort, able to speak in complete sentences, no audible wheezes, no nasal flaring, no respiratory distress, no retractions, no stridor, not tachypneic, no tracheal deviation, no use of accessory muscles, No prolonged expiratory phase and other (Normal inspiratory to expiratory ratio.) Auscultation: clear to auscultation bilaterally, no rales, no rhonchi, no wheezes and no rubs Tactile Fremitus: tactile fremitus absent Cardio Jugular venous pressure: no JVD Palpation: normal PMI Rate: regular rate Rhythm: regular rhythm Heart Sounds: S1 normal, S2 normal, no gallops, no murmurs and no rubs GI Inspection: non-distended Palpation: soft, no hepatosplenomegaly, no guarding and nontender Back/Spine/Pelvis Back: no CVA tenderness and No back tenderness Cervical Spine: normal cervical lordosis, cervical ROM normal, No cervical muscular tenderness, No pain with cervical ROM, No cervical spinal tenderness and No step off deformity Thoracic/Lumbar Spine: thoracic and lumbar spine normal to inspection, No thoracic spinal tenderness and No lumbar spinal tenderness Skin General skin exam: turgor normal, no petechiae, no purpura and other (Skin is normal for ethnicity.) Other: There is an open wound approximately 1 cm over the dorsum of the PIP joint of the right middle finger. There is a small amount of serosanguineous fluid at the wound. There is mild warmth and erythema proximal to the wound that extends to the MCP joint. There is no lymphangitis, subcutaneous emphysema or axillary adenopathy Neuro General: patient alert, patient awake, patient oriented x3, no meningeal signs and CN's II-XI intact bilaterally Cranial Nerves: CN's II-XI intact bilaterally, PERRL, accommodation normal, EOM intact bilaterally, no nystagmus, facial strength normal, tongue midline, hearing normal and no nystagmus Cognition: normal cognition Speech: speech normal Sensory Exam: no sensory deficits noted Other: Mild left sided weakness Extrem Other: Please see above. There is some swelling and erythema proximal to the wound on the right middle finger. There is no axillary adenopathy, fluctuance or subcutaneous emphysema. When he flexes his finger initially he was unable to extend his finger without using his other hand. He is neurovascularly intact otherwise. Psych Appearance: grossly normal Affect: normal affect Attitude: cooperative Thought Process: normal Thought Content: normal Insight: insight good Judgment: judgment good Other: The patient appears to have capacity make medical decisions. Course I have advised the patient of my discussion with Carlton Mcqueen from orthopedics. I have advised the patient to follow-up. I have advised him on signs and symptoms of recurrent wound infection. The patient was understanding agree with the discharge plan. All his questions and concerns were addressed prior to discharge. Reevaluation(s) Time: 15:49 Reevaluation: I discussed the case with Carlton Mcqueen from Dr. Lee's office. He advised that if the x-ray was negative to give the patient a bulky tube gauze dressing and to call the office and to text them a photograph of his finger in a few days. He did not advise reinitiating antibiotics. Consultations Consultation #1: Carlton Mcqueen from orthopedics. Vital Signs Vital signs: Vital Signs Temperature 36.4 C L 07/17/23 14:18 Pulse 55 L 07/17/23 14:18 Respiratory Rate 18 07/17/23 14:18 Blood Pressure 118/68 07/17/23 14:18 Pulse Oximetry 98 07/17/23 14:18 Temperature 36.4 C L 07/17/23 14:18 Temperature Source Skin 07/17/23 14:18 Pulse 55 L 07/17/23 14:18 Respiratory Rate 18 07/17/23 14:18 Respiratory Effort Normal 07/17/23 14:22 Blood Pressure 118/68 07/17/23 14:18 Blood Pressure Position Sitting 07/17/23 14:18 Pulse Oximetry 98 07/17/23 14:18 Oxygen Delivery Method Room Air 07/17/23 14:18 Oxygen Flow Rate 0 07/17/23 14:18
--- NOTE | 2023-07-17 15:00 | DI.RAD_ITS ---
Exam(s) XR FINGER RT MIDDLE EXAM: XR FINGER RT MIDDLE CLINICAL HISTORY: open wound/fell reinjured. TECHNIQUE: 2D digital imaging was performed. Three views. COMPARISON: CR XR FINGER RT MIDDLE from 07/08/2023 FINDINGS: BONES: No change in the multiple tiny fracture fragments seen dorsal to the head of the proximal phal anx of the 3rd finger as seen on prior exams. No new fractures are seen.. No bony destructive lesio n is seen. JOINTS: No dislocation present. SOFT TISSUE: Swelling and soft tissue wound at the dorsal head of the 3rd proximal phalanx. IMPRESSION: Stable appearance of fracture fragments dorsal to the head of the proximal phalanx of the middle fing er. DATA REPOSITORY: RADIATION DOSE DELIVERED:
[2023-07-17 16:32] VITALS: BP 122/66; PULSE 78; RESP 16; O2SAT 97
== END 2023-07-17 16:38 | disposition home or self-care (01) ==
PROVIDERS: Emergency Provider Emergency Medicine Emergency Medical Services; PCP Family Medicine
DX: W01.0XXA Fall on same level from slipping, tripping and stumbling without subsequent striking against object, initial encounter; G80.9 Cerebral palsy, unspecified; R53.1 Weakness; S62.612B Displaced fracture of proximal phalanx of right middle finger, initial encounter for open fracture; M65.331 Trigger finger, right middle finger
CPT/HCPCS: 99283; 73140

== ENCOUNTER 2023-07-29 10:46 | Outpatient (CLI) | payer MEDICARE, SELFPAY ==
--- NOTE | 2023-07-29 10:30 | DI.RAD_ITS ---
Exam(s) XR FINGER RT MIDDLE EXAM: XR FINGER RT MIDDLE CLINICAL HISTORY: RMF open injury with new locking of PIP. TECHNIQUE: 2D digital imaging was performed. COMPARISON: Prior x-rays 07/17/2023. FINDINGS: 3 views Third finger is held in flexion for this exam. The previously described calcific densities dorsal to the neck of the proximal phalanx are again noted appear unchanged. There appears to be some healing over the overlying skin-subcu tissues. No radiographic evidence of osteomyelitis. Bone density is normal. IMPRESSION: Stable appearance DATA REPOSITORY: RADIATION DOSE DELIVERED:
== END 2023-07-29 10:47 | disposition home or self-care (01) ==
LOC: DIORS 10:46
PROVIDERS: PCP Family Medicine; Visit Provider Student in an Organized Health Care Education/Training Program
DX: S62.620 Displaced fracture of middle phalanx of right index finger (principal); S62.612A Displaced fracture of proximal phalanx of right middle finger, initial encounter for closed fracture; S62.620A Displaced fracture of middle phalanx of right index finger, initial encounter for closed fracture; W27.0XXA Contact with workbench tool, initial encounter; M65.331 Trigger finger, right middle finger
CPT/HCPCS: 99213; 73140

== ENCOUNTER 2023-07-31 09:54 | Day surgery (SDC) | payer MEDICARE, SELFPAY ==
[2023-07-31 10:10] VITALS: BP 130/64; PULSE 61; RESP 16; TEMP 36.1; O2SAT 98
[2023-07-31] MEDS: Sodium Bicarbonate 50 MEQ/50 ML VIAL (11:12)
[2023-07-31] MEDS: Lidocaine 1% Pres-Free W/EPI 1/200,000 10 ML VIAL (11:12)
--- NOTE | 2023-07-31 11:21 | PDOC.DSDIS_ITS ---
Date of service: 07/31/23 Time of Service: 11:21 Discharge Plan Disposition Patient Disposition: Home Condition: Good Discharge Details Reason For Visit: I&D RMF Attending Provider: Donell Lee Primary Care Provider: Deandre Hernandez Home Meds and New Rx's Prescriptions: New acetaminophen 500 mg tablet 1,000 mg PO TID Qty: 90 0RF ibuprofen 600 mg tablet 600 mg PO TID PRN (Reason: pain) Qty: 90 0RF hydrocodone-acetaminophen 5-325 mg tablet 1 tab PO Q6H PRN (Reason: pain) Qty: 5 0RF Continued methylcellulose (laxative) Powder See Rx Instructions PO DAILY Patient Comments: 1 tsp PO BID; Rx Instructions: 1 tsp PO daily; magnesium oxide,aspartate,citr 400 mg magnesium capsule 400 mg PO DAILY glucosamine-chondroitin 900 mg tablet 900 mg PO DAILY (DME) blood-glucose meter [[employer] Mobile DentalTouch UltraMini] 1 EACH kit 1 ea Miscellaneous DAILY Qty: 1 (DME) lancets [OneTouch UltraSoft Lancets] 1 EACH misc 1 ea Miscellaneous DAILY Qty: 100 Rx Instructions: pls dispense ultra mini lancets. Dx: TYpe II DM (DME) OneTouch Ultra Blue Test Strip Strip See Rx Instructions .ROUTE .MEDSUPPLY Qty: 100 3RF Rx Instructions: test daily triamcinolone acetonide 0.1 % cream 1 applic Topical BID PRN (Reason: rash) Qty: 45 1RF Rx Instructions: apply to rash on testicles BID prn duloxetine 30 mg capsule,delayed release(DR/EC) 30 mg PO BID Qty: 180 3RF losartan 25 mg tablet 25 mg PO DAILY Qty: 90 3RF tamsulosin 0.4 mg capsule 0.8 mg PO HS Qty: 180 3RF Rx Instructions: dose increase 05/14/20 MJS Discontinued acetaminophen [Tylenol] 325 MG tablet 650 mg PO PRN Patient Comments: 10.31.16 pt states he is taking this around 9am, 2pm, hs sometimes 4hprn.HE ibuprofen 200 MG capsule 600 mg PO HS PRN Discharge Instructions Additional Instructions: I&D Finger Discharge Instructions Activity: You should keep the hand elevated as much as possible for the first few days. You may use the other fingers as tolerated but avoid trying to do too much too soon. You may perform light activities with the splint in place. Dressing/Cast: Your dressing should stay in place at all times. Do NOT get it wet. If it gets soiled or starts to come undone, you may change it with a bandaid or gauze. The pin tip does not need to be covered but you may choose to do so. Medications: - You should take Tylenol and Ibuprofen for baseline pain control. - A small amount of Hydrocone was called in for breakthrough pain. - You may apply ice over the finger. Follow-up: Saturday for dressing change. Referrals: Donell Lee MD [ [facility] STAFF PHYSICIAN] - Activity:: Elevate Remove Dressings/Wound Care:: Do Not Remove Shower/Bathe:: Cover Diet:: As Tolerated Discharge Orders Discharge Orders: Discharge Order (Routine); Ordered 07/31/23 Ordered By: Carlton Mcqueen DS: Diagnosis Discharge Diagnosis (1) Central slip extensor tendon injury (boutonniere): Status: Acute (2) Open fracture of proximal phalanx of right middle finger: Status: Acute
[2023-07-31 12:02] VITALS: BP 133/66; PULSE 55; RESP 16; TEMP 36.4; O2SAT 96
--- NOTE | 2023-07-31 12:48 | W.PM.OP ---
Date of service: 07/31/23 Time of Service: 12:00 Operative Note Operative Note DATE OF PROCEDURE: 07/31/23 PRE-OP DIAGNOSIS: Right Middle Finger Traumatic Wound, down to PIP Joint, with extensor tendon laceration POST-OP DIAGNOSIS: same PROCEDURE: Irrigation and Debridement of RMF PIP Joint and Wound, Extensor Tendon Repair with Pinning of the PIP Joint SURGEON: Donell Lee ANESTHESIA TYPE: Local By Surgeon Refer to Anesthesia Record ESTIMATED BLOOD LOSS: 15 PATHOLOGY: none sent TOURNIQUET TIME: 0 COMPLICATIONS: None Patient was transported to: same day Patient's condition: stable Indications: I have seen Storm in clinic for an injury to the dorsum of his right middle finger. He fell over a table saw directly injuring the dorsum of the PIP joint the right middle finger. This was treated initially conservatively as he seemed to have intact extension. However, he had another fall which resulted in a pop and a loss of the ability to extend the finger with a locking sensation. This was seen in the office where I had concerned about complete disruption of the dorsal capsule of the joint as well as any extensor attachments. Therefore, I recommended proceeding to the operating room for irrigation debridement of the wound along with repair of any of the extensor component to the PIP joint. I reviewed the risks of the procedure to include, but not limited to, bleeding, infection, pain, stiffness, recurrence, damage to nerves or vessels. Despite these risks, the patient elected to proceed. Findings: There is a significant mount of granulation tissue and fibrous material in this area which was debrided sharply. The joint was directly visible. There was edge of extensor tendon although specific anatomy is difficult to appreciate. However, it had good integrity and was able to be aligned. In order to protect the repair and assist with the repair I placed a 0.062 inch K wire through the middle finger locking the PIP joint in extension. Procedure Description: Storm was greeted in the preoperative holding area where the correct side was identified and marked. The consent was reviewed with the patient and signed. All questions were answered. Storm was taken back to the operating room. The patient was placed into the supine position on the operating room table with the right arm on an arm board. All bony prominences were well padded. No prophylactic antibiotics were administered since this was a clean, elective hand surgical case. The right arm was then prepped with Chloraprep and draped in a standard fashion with stockinette and extremity drape. A timeout to confirm correct identity, side and site, procedure, allergies, anesthesia, and medical concerns was performed. A digital block was then performed using 1% lidocaine with epinephrine and buffered with sodium bicarbonate. This was allowed time to set up completely and was tested before proceeding with the case. The transverse laceration of the middle finger was evaluated. The fibrous material granulation tissue in this region was debrided. The incision was extended proximally and distally in a longitudinal direction from the edge of the transverse laceration creating a Z-type defect. Flaps of tissue are elevated and underlying adherent tendinous material was evaluated. There was dense extensor tendon material along with dorsal capsule which was able to be manipulated. This seemed to have good integrity to it and with the finger fully extended did reapproximate itself. The finger was then flexed forward and further debridement was performed. The joint surface of the PIP joint was identified. However, there is no significant defect. This was irrigated excessively remove any remnant debris of the PIP joint. After the finger wound was fully debrided any unhealthy appearing tissue once again the extensor tendon and extensor lagos dorsal capsule complex was identified. The help promote repair of this tissue and to support it I then chose to place a 0.062 inch K wire. This was placed from the tip of the middle finger down into the proximal phalanx such that there is no allowable motion through the PIP or DIP joints. The finger in this position the edges of this extensor tendon material and dorsal capsule was well approximated. I used a #2-0 FiberWire to reapproximate these tissues which had excellent reapproximation of the edges. The wound was once again irrigated and then the skin was closed with a #4-0 nylon. The finger was dressed with Xeroform, 4 x 4's, and a tube gauze dressing. Storm tolerated the procedure well and was returned to the Same Day Surgery area in a stable condition suffering no known complication.
== END 2023-07-31 12:21 | disposition home or self-care (01) ==
PROVIDERS: PCP Family Medicine; Visit Provider Student in an Organized Health Care Education/Training Program
PROC: (CPT 26415; principal; 2023-07-31 13:15)
DX: S66.322A Laceration of extensor muscle, fascia and tendon of right middle finger at wrist and hand level, initial encounter (principal); W27.0XXA Contact with workbench tool, initial encounter; W19.XXXA Unspecified fall, initial encounter
CPT/HCPCS: 26415

== ENCOUNTER → 2023-08-05 13:28 | Outpatient (BNVA) | payer MEDICARE, SELFPAY | PROVIDERS: PCP Family Medicine; Referring Provider Family Medicine; Visit Provider Student in an Organized Health Care Education/Training Program | DX: S62.612D Displaced fracture of proximal phalanx of right middle finger, subsequent encounter for fracture with routine healing (principal); X58.XXXD Exposure to other specified factors, subsequent encounter ==

== ENCOUNTER → 2023-08-09 09:31 | Outpatient (BNVA) | payer MEDICARE, SELFPAY | PROVIDERS: PCP Family Medicine; Referring Provider Family Medicine; Visit Provider Student in an Organized Health Care Education/Training Program | DX: S62.612D Displaced fracture of proximal phalanx of right middle finger, subsequent encounter for fracture with routine healing (principal); X58.XXXD Exposure to other specified factors, subsequent encounter ==

== ENCOUNTER 2023-08-17 14:53 | Emergency (ER) | payer MEDICARE, SELFPAY ==
[2023-08-17 14:56] VITALS: BP 138/59; PULSE 59; RESP 18; TEMP 36.4; O2SAT 99
--- NOTE | 2023-08-17 15:19 | W.ED.GENAD ---
Discharge Plan Disposition Patient Disposition: Home Condition: Stable Discharge Details Clinical Impression: Cellulitis of right middle finger Primary Care Provider: Deandre Hernandez ED Provider: Jaiden Padron [facility] Meds and New Rx's Prescriptions: New metronidazole 500 mg tablet 500 mg PO Q8H Qty: 21 0RF amoxicillin-pot clavulanate 875-125 mg tablet 1 tab PO BID Qty: 14 0RF Continued methylcellulose (laxative) Powder See Rx Instructions PO DAILY Patient Comments: 1 tsp PO BID; Rx Instructions: 1 tsp PO daily; magnesium oxide,aspartate,citr 400 mg magnesium capsule 400 mg PO DAILY glucosamine-chondroitin 900 mg tablet 900 mg PO DAILY (DME) blood-glucose meter [[employer] SolutionsTouch UltraMini] 1 EACH kit 1 ea Miscellaneous DAILY Qty: 1 (DME) lancets [OneTouch UltraSoft Lancets] 1 EACH misc 1 ea Miscellaneous DAILY Qty: 100 Rx Instructions: pls dispense ultra mini lancets. Dx: TYpe II DM (DME) OneTouch Ultra Blue Test Strip Strip See Rx Instructions .ROUTE .MEDSUPPLY Qty: 100 3RF Rx Instructions: test daily triamcinolone acetonide 0.1 % cream 1 applic Topical BID PRN (Reason: rash) Qty: 45 1RF Rx Instructions: apply to rash on testicles BID prn duloxetine 30 mg capsule,delayed release(DR/EC) 30 mg PO BID Qty: 180 3RF losartan 25 mg tablet 25 mg PO DAILY Qty: 90 3RF tamsulosin 0.4 mg capsule 0.8 mg PO HS Qty: 180 3RF Rx Instructions: dose increase 7/18/20 MJS acetaminophen 500 mg tablet 1,000 mg PO TID Qty: 90 0RF ibuprofen 600 mg tablet 600 mg PO TID PRN (Reason: pain) Qty: 90 0RF Discharge Instructions Instructions: Cellulitis (ED) Additional Instructions: call Dr. Lee's office Saturday to arrange for follow up if you have severe worsening pain, fevers or feel more ill return to the emergency department Medical Decision Making 73 yo male who sustained a lac on the posterior right middle finger in May and then reinjured it causing a tendon injury requiring surgery at the beginning of the month comes in with increased redness since yesterday. HE denies fevers, chills, severe pain. HE is caox4 on arrival speaking clearly in no distress and appears well. His right middle digit is mildly swollen but states it has been this way since surgery and not significantly changed since. HE has redness proximal to the right posterior proximal wound that he says has been stable for weeks but now has erythema extending approximately 4-5mm distally to the wound. No flexor tendon tenderness on exam, has intact sensation, can flex and extend at pip, dip and mcp joints. Concern for wound infection, no discharge or other findings to suggest abscess. No findings to suggest flexor tenosynovitis. There is no ortho professional architect coverage but I do not feel this requires emergent orthopedic referral. Will give a dose of IV ceftriaxone and start on his previous doses of augmentin and metronidazole he was given in June. HE had no mrsa on his wound culture and no purulence on exam so do not feel staph coverage indicated. He will call ortho Saturday and return precautions given. Differential Diagnosis Differential Diagnosis: cellulitis, wound infection HPI General Mode of arrival: ambulatory. Date/Time Provider Initiated Documentation: 08/17/23 14:54. Limitations to Documentation: no limitations. Information obtained by: patient. History of Present Illness 73 year old M presents to the emergency department with the chief complaint of right middle finger redness, described as mild, Quality is described as aching, and is localized to the right (middle finger). Patient reports no radiation. Patient started experiencing this day(s) (1) and it has been constant. No relieving factors improve symptom(s), No exacerbating factors reported . Patient notes no other symptoms.. Patient did receive the following treatments prior to arrival, none Related Data Home Medications Medication Instructions Recorded Confirmed blood-glucose meter (OneTouch ##1 07/11/15 08/09/23 UltraMini kit) lancets (OneTouch UltraSoft #100 ea 07/13/15 08/09/23 Lancets) methylcellulose (laxative) See Rx Instructions PO DAILY 01/15/20 08/17/23 blood sugar diagnostic (OneTouch #100 ea 10/06/20 08/17/23 Ultra Blue Test Strip) triamcinolone acetonide 0.1 % 1 applic topical BID PRN rash #45 05/21/22 08/09/23 topical cream grams duloxetine 30 mg capsule,delayed 30 mg PO BID #180 caps 01/14/23 08/17/23 release losartan 25 mg tablet 25 mg PO DAILY #90 tabs 02/07/23 08/17/23 tamsulosin 0.4 mg capsule 0.8 mg (2 x 0.4 mg) PO HS #180 caps 05/04/23 08/17/23 antiarthritic combination no.2 900 900 mg PO DAILY 07/29/23 08/17/23 mg tablet (glucosamine-chondroitin) magnesium oxide,aspartate,citr 400 mg PO DAILY 07/29/23 08/17/23 acetaminophen 500 mg tablet 1,000 mg (2 x 500 mg) PO TID #90 07/31/23 08/17/23 tabs ibuprofen 600 mg tablet 600 mg PO TID PRN pain #90 tabs 07/31/23 08/17/23 amoxicillin 875 mg-potassium 1 tab PO BID #14 tabs 08/17/23 clavulanate 125 mg tablet metronidazole 500 mg tablet 500 mg PO Q8H #21 tabs 08/17/23 Previous Rx's Medication Instructions Recorded blood sugar diagnostic (OneTouch #100 ea 10/06/20 Ultra Blue Test Strip) triamcinolone acetonide 0.1 % 1 applic topical BID PRN rash #45 05/21/22 topical cream grams duloxetine 30 mg capsule,delayed 30 mg PO BID #180 caps 01/14/23 release losartan 25 mg tablet 25 mg PO DAILY #90 tabs 02/07/23 tamsulosin 0.4 mg capsule 0.8 mg (2 x 0.4 mg) PO HS #180 caps 05/04/23 acetaminophen 500 mg tablet 1,000 mg (2 x 500 mg) PO TID #90 07/31/23 tabs ibuprofen 600 mg tablet 600 mg PO TID PRN pain #90 tabs 07/31/23 amoxicillin 875 mg-potassium 1 tab PO BID #14 tabs 08/17/23 clavulanate 125 mg tablet metronidazole 500 mg tablet 500 mg PO Q8H #21 tabs 08/17/23 Allergies Allergy/AdvReac Type Severity Reaction Status Date / Time Serotonin 5HT-3 Antagonists Allergy Unknown did not Verified 08/17/23 15:01 affect breathing, unsure of reaction Ipratropium Analogues AdvReac Intermediate sore throat Verified 08/17/23 15:01 clindamycin AdvReac Mild Nausea Verified 08/17/23 15:01 nabumetone AdvReac Mild Nausea Verified 08/17/23 15:01 General Stated Complaint: Orthopedic MARZENA: 3 Review of Systems All systems reviewed & are unremarkable except as noted in HPI and below Constitutional Constitutional: Denies chills, Denies fever(s) and Denies weakness Cardiovascular Cardiovascular: Denies chest pain and Denies dyspnea Respiratory Respiratory: Denies cough and Denies dyspnea Gastrointestinal Gastrointestinal: Denies abdominal pain, Denies nausea and Denies vomiting Integumentary/Breasts Skin/Breast: Reports rash Neurologic Neurologic: Denies weakness Psychiatric Psychiatric: Denies depression PFSH All Active Problems (Updated 08/17/23 @ 16:03 by Jaiden Padron MD) Cellulitis of right middle finger (Acute) Central slip extensor tendon injury (boutonniere) (Acute) RMF Trigger finger, right middle finger (Acute) PERALTA (dyspnea on exertion) (Acute) Open fracture of proximal phalanx of right middle finger (Acute) Tobacco use disorder (Acute) stopped smoking 11/29/01 Swollen breast (Acute 05/27/05) 0.5 cm mass at 5 o'clock Spinal stenosis (Acute 03/01/11) Sleep apnea (Acute 11/02/09) Shoulder pain (Acute 12/25/05) MRI 12/31; supraspinatus tear on greater tubercle Rotator cuff tear, right (Acute 05/13/15) Lumbago (Acute 09/26/01) MRI 04/28=severe spinal stenosis Knee pain (Acute) left cruciate tear Fatigue (Acute) ED (erectile dysfunction) (Acute 06/13/09) Depression (Acute) Cystitis, acute (Acute 09/26/00) x 3 Chest pain (Acute 09/26/97) Presumed reflux Cerebral palsy (Acute 09/28/08) Cataract (Acute) left IOL Calculus of kidney (Acute) recurrent UTI's w/ left nephrolithiasis COPD (chronic obstructive pulmonary disease) (Acute 06/13/09) BPH without urinary obstruction (Acute) Diabetes mellitus (Chronic) Back pain (Chronic) likely recurrent spinal stenosis Status post wrist surgery (Acute) Status post foot surgery (Acute) Status post bunionectomy (Acute) History of toe surgery (Acute) Chronic prostatitis (Acute) Otitis media, left (Acute) Sensation of fullness in left ear (Acute) Acute diffuse otitis externa of left ear (Acute) Abnormal auditory perception (Acute) Bilateral hip pain (Acute) Bilateral primary osteoarthritis of hip (Acute) Lumbar spondylosis (Acute) Right sided sciatica (Acute) Alcohol intake above recommended sensible limits (Acute) Family history of pancreatic cancer (Acute) Dizziness (Acute) Cerumen impaction (Acute) Right carpal tunnel syndrome (Acute) Surgical History TOE SURGERY [facility] RIGHT FOOT SURGERY 06/13/09 Nasal septoplasty 2009 LEFT WRIST SURGERY 06/13/09 FEMUR FX 1972 WITH LATER SURGERY TO REMOVE PIN BUNIONECTOMY (~1993) BACK SURGERY 2001-L4-5 DECOMPRESSION FOR SPINAL STENOSIS Family History Mother , 67 Pancreatic cancer Breast cancer Sister , 57 Pancreatic cancer Father , 76 Heart disease COPD (chronic obstructive pulmonary disease) Maternal Grandfather Cancer Paternal Grandfather , age 69 Heart disease Maternal Grandmother Cancer Paternal Grandmother , age 73 Diabetes Daughter No problems noted. Daughter No problems noted. Social History Smoking/Tobacco Use Status: Former Tobacco Use tobacco type: cigarettes Quit Date: 11/29/01 Tobacco: How many years used: 37 Smokeless tobacco user: other (Cigarette ) Quit status: has quit before Second Hand Exposure: Yes Smoking risk assessment performed?: Yes Alcohol Intake: current Alcohol Intake frequency: a few times a week Alcohol type: wine and hard liquor Drug use: Never Substance use type: does not use Caregiver/Support person: No Household members: spouse and other Details: Grandchild Housing: house Communication Needs: None Do you need help understanding health information?: Rarely Pets and animals: No Sexually active: No Do you think of yourself as: straight/heterosexual Current gender identity: male What is your relationship status?: How often do you talk on the phone with friends or family?: three or more times per week How often do you get together with friends or relatives?: once per week How often do you attend caodaism or shinto services?: 4 or more times per year Do you belong to any clubs or organized social groups?: no Panel score (0-1 are the most socially isolated patients): 3 What type of physical activity do you participate in: none Frequency: does not exercise Kayli/Mandaeism: Evangelical Special kayli needs: No Seatbelt use: always Helmet use: No Drive intox or ride w/intox driver education road instructor: No Do you feel safe at home: Yes Do you feel safe in your relationship?: Yes Exam Const General: no acute distress Orientation: alert HENMT Head: normal to inspection Ears: external ears normal General nose exam: external nose normal Mouth: moist mucous membranes Eyes General: appearance normal, both eyes and all related structures Neck Neck: normal visual inspection Resp Effort & Inspection: normal respiratory effort and able to speak in complete sentences Cardio Rate: regular rate Neuro General: patient alert and patient oriented x3 Extrem General: capillary refill normal Psych Mental Status: mental status grossly normal Course Vital Signs Vital signs: Vital Signs Temperature 36.4 C L 08/17/23 14:56 Pulse 59 L 08/17/23 14:56 Respiratory Rate 18 08/17/23 14:56 Blood Pressure 138/59 L 08/17/23 14:56 Pulse Oximetry 99 08/17/23 14:56 Temperature 36.4 C L 08/17/23 14:56 Temperature Source Skin 08/17/23 14:56 Pulse 59 L 08/17/23 14:56 Respiratory Rate 18 08/17/23 14:56 Blood Pressure 138/59 L 08/17/23 14:56 Blood Pressure Position Sitting 08/17/23 14:56 Pulse Oximetry 99 08/17/23 14:56 Oxygen Delivery Method Room Air 08/17/23 14:56 Oxygen Flow Rate 0 08/17/23 14:56 Pain Level 5 08/17/23 14:56
[2023-08-17] MEDS: cefTRIAXone 2 GM/50 ML BAG IVPB (16:12)
[2023-08-17] MEDS: metroNIDAZOLE 500 MG TAB PO (16:59)
== END 2023-08-17 17:05 | disposition home or self-care (01) ==
PROVIDERS: Emergency Provider Emergency Medicine; PCP Family Medicine
DX: L03.011 Cellulitis of right finger (principal)
CPT/HCPCS: 96365; 99284

== ENCOUNTER 2023-08-20 14:34 | Emergency (ER) | payer MEDICARE, SELFPAY ==
[2023-08-20 14:38] VITALS: BP 155/65; PULSE 60; RESP 18; TEMP 36.7; O2SAT 98
[2023-08-20 14:48] VITALS: TEMP 34.8
--- NOTE | 2023-08-20 15:00 | DI.RAD_ITS ---
Exam(s) XR HAND RT COMPLETE EXAM: XR HAND RT COMPLETE CLINICAL HISTORY: Hand injury. TECHNIQUE: 2D digital imaging was performed. Three views. COMPARISON: CR XR FINGER RT MIDDLE from 07/17/2023 FINDINGS: A pin is noted extending through the distal through proximal phalanges of the 3rd finger. There is s oft tissue swelling. There are degenerative changes of the interphalangeal joints of the fingers. N o acute fracture is present. No bony destructive lesion is seen. There are degenerative changes at the radial carpal and intercarpal articulations. Cystic changes ar e again noted within the carpal bones. IMPRESSION: Pin through the 3rd finger with soft tissue swelling. No acute abnormality. DATA REPOSITORY: RADIATION DOSE DELIVERED:
--- NOTE | 2023-08-20 15:01 | W.ED.GENAD ---
Discharge Plan Disposition Patient Disposition: Home Condition: Improving Discharge Details Clinical Impression: Open fracture of proximal phalanx of right middle finger, Cellulitis of right middle finger Primary Care Provider: Deandre Hernandez ED Provider: Manisha Fan Home Meds and New Rx's Prescriptions: New ciprofloxacin HCl 750 mg tablet 750 mg PO BID Qty: 10 0RF Continued metronidazole 500 mg tablet 500 mg PO Q8H Qty: 21 0RF Discontinued amoxicillin-pot clavulanate 875-125 mg tablet 1 tab PO BID Qty: 14 0RF No Action methylcellulose (laxative) Powder See Rx Instructions PO DAILY Patient Comments: 1 tsp PO BID; Rx Instructions: 1 tsp PO daily; magnesium oxide,aspartate,citr 400 mg magnesium capsule 400 mg PO DAILY glucosamine-chondroitin 900 mg tablet 900 mg PO DAILY (DME) blood-glucose meter [PIERIS ProteolabTouch UltraMini] 1 EACH kit 1 ea Miscellaneous DAILY Qty: 1 (DME) lancets [OneTouch UltraSoft Lancets] 1 EACH misc 1 ea Miscellaneous DAILY Qty: 100 Rx Instructions: pls dispense ultra mini lancets. Dx: TYpe II DM (DME) OneTouch Ultra Blue Test Strip Strip See Rx Instructions .ROUTE .MEDSUPPLY Qty: 100 3RF Rx Instructions: test daily triamcinolone acetonide 0.1 % cream 1 applic Topical BID PRN (Reason: rash) Qty: 45 1RF Rx Instructions: apply to rash on testicles BID prn duloxetine 30 mg capsule,delayed release(DR/EC) 30 mg PO BID Qty: 180 3RF losartan 25 mg tablet 25 mg PO DAILY Qty: 90 3RF tamsulosin 0.4 mg capsule 0.8 mg PO HS Qty: 180 3RF Rx Instructions: dose increase 7/18/20 MJS acetaminophen 500 mg tablet 1,000 mg PO TID Qty: 90 0RF ibuprofen 600 mg tablet 600 mg PO TID PRN (Reason: pain) Qty: 90 0RF Discharge Instructions Additional Instructions: keep wound clean and dry stop augmentin, continue flagyl and start cipro return with fever, significant pain or worsening keep ortho follow up appointments Medical Decision Making Emergent evaluation of right hand finger infection. Initial differential includes flexor tenosynovitis, felon, hand cellulitis. Had traumatic bone and tendon injury that required surgical repair. His wound had been healing, but several days ago he required antibiotics. Symptoms or not improving. Sent into the emergency department by orthopedic surgery for further evaluation. Initial plan for labs, cultures, repeat imaging. Will discuss with orthopedics regarding need for hospitalization or further diagnostic imaging. 1530: Eva HERNANDEZ in ED to evaluate [place] 1535: WBC 7 1630: X-ray reviewed and independently interpreted, the roosevelt is not in appropriate position. Discussed with orthopedics who concurs with this x-ray finding. Ortho feels this is likely the cause of the increased swelling and pain. they are now at bedside to pull the pin, dressed the wound. The plan is for outpatient antibiotics. Medical Records Medical records reviewed: Yes I reviewed the patient's medical records. Lab Data Lab results reviewed: Yes I reviewed the patient's lab results. HPI General Date/Time Provider Initiated Documentation: 08/20/23 14:39. Limitations to Documentation: no limitations. Information obtained by: patient, RN/MD and old records reviewed. HPI Narrative: 73-year-old gentleman with recent right hand traumatic injury presents for reevaluation of increased redness and swelling. He reports that he was evaluated in the emergency department 4 days ago and started on antibiotics at that time. He reports that there have been no improvement in his symptoms. Denies any fever or chills. He is unable to range his finger due to the pin placed. He has been sending photographs to orthopedic surgeon. Orthopedic surgeon was concerned and sent the patient to the emergency department for further evaluation. He reports that the wound appears to be healing and is no longer draining. Related Data Home Medications Medication Instructions Recorded Confirmed blood-glucose meter (OneTouch ##1 07/11/15 08/09/23 UltraMini kit) lancets (PIERIS ProteolabTouch UltraSoft #100 ea 07/13/15 08/09/23 Lancets) methylcellulose (laxative) See Rx Instructions PO DAILY 01/15/20 08/20/23 blood sugar diagnostic (OneTouch #100 ea 10/06/20 08/17/23 Ultra Blue Test Strip) triamcinolone acetonide 0.1 % 1 applic topical BID PRN rash #45 05/21/22 08/20/23 topical cream grams duloxetine 30 mg capsule,delayed 30 mg PO BID #180 caps 01/14/23 08/20/23 release losartan 25 mg tablet 25 mg PO DAILY #90 tabs 02/07/23 08/20/23 tamsulosin 0.4 mg capsule 0.8 mg (2 x 0.4 mg) PO HS #180 caps 05/04/23 08/20/23 antiarthritic combination no.2 900 900 mg PO DAILY 07/29/23 08/20/23 mg tablet (glucosamine-chondroitin) magnesium oxide,aspartate,citr 400 mg PO DAILY 07/29/23 08/20/23 acetaminophen 500 mg tablet 1,000 mg (2 x 500 mg) PO TID #90 07/31/23 08/20/23 tabs ibuprofen 600 mg tablet 600 mg PO TID PRN pain #90 tabs 07/31/23 08/20/23 metronidazole 500 mg tablet 500 mg PO Q8H #21 tabs 08/17/23 08/20/23 ciprofloxacin HCl 750 mg tablet 750 mg PO BID #10 tabs 08/20/23 Previous Rx's Medication Instructions Recorded blood sugar diagnostic (OneTouch #100 ea 10/06/20 Ultra Blue Test Strip) triamcinolone acetonide 0.1 % 1 applic topical BID PRN rash #45 05/21/22 topical cream grams duloxetine 30 mg capsule,delayed 30 mg PO BID #180 caps 01/14/23 release losartan 25 mg tablet 25 mg PO DAILY #90 tabs 02/07/23 tamsulosin 0.4 mg capsule 0.8 mg (2 x 0.4 mg) PO HS #180 caps 05/04/23 acetaminophen 500 mg tablet 1,000 mg (2 x 500 mg) PO TID #90 07/31/23 tabs ibuprofen 600 mg tablet 600 mg PO TID PRN pain #90 tabs 07/31/23 metronidazole 500 mg tablet 500 mg PO Q8H #21 tabs 08/17/23 ciprofloxacin HCl 750 mg tablet 750 mg PO BID #10 tabs 08/20/23 Allergies Allergy/AdvReac Type Severity Reaction Status Date / Time Serotonin 5HT-3 Antagonists Allergy Unknown did not Verified 08/20/23 14:42 affect breathing, unsure of reaction Ipratropium Analogues AdvReac Intermediate sore throat Verified 08/20/23 14:42 clindamycin AdvReac Mild Nausea Verified 08/20/23 14:42 nabumetone AdvReac Mild Nausea Verified 08/20/23 14:42 General Stated Complaint: Cellulitis MARZENA: 3 PFSH All Active Problems (Updated 08/20/23 @ 16:47 by Manisha Fan MD) Cellulitis of right middle finger (Acute) Central slip extensor tendon injury (boutonniere) (Acute) RMF Trigger finger, right middle finger (Acute) PERALTA (dyspnea on exertion) (Acute) Open fracture of proximal phalanx of right middle finger (Acute) Tobacco use disorder (Acute) stopped smoking 11/29/01 Swollen breast (Acute 05/27/05) 0.5 cm mass at 5 o'clock Spinal stenosis (Acute 03/01/11) Sleep apnea (Acute 11/02/09) Shoulder pain (Acute 12/25/05) MRI 12/31; supraspinatus tear on greater tubercle Rotator cuff tear, right (Acute 05/13/15) Lumbago (Acute 09/26/01) MRI 04/28=severe spinal stenosis Knee pain (Acute) left cruciate tear Fatigue (Acute) ED (erectile dysfunction) (Acute 06/13/09) Depression (Acute) Cystitis, acute (Acute 09/26/00) x 3 Chest pain (Acute 09/26/97) Presumed reflux Cerebral palsy (Acute 09/28/08) Cataract (Acute) left IOL Calculus of kidney (Acute) recurrent UTI's w/ left nephrolithiasis COPD (chronic obstructive pulmonary disease) (Acute 06/13/09) BPH without urinary obstruction (Acute) Diabetes mellitus (Chronic) Back pain (Chronic) likely recurrent spinal stenosis Status post wrist surgery (Acute) Status post foot surgery (Acute) Status post bunionectomy (Acute) History of toe surgery (Acute) Chronic prostatitis (Acute) Otitis media, left (Acute) Sensation of fullness in left ear (Acute) Acute diffuse otitis externa of left ear (Acute) Abnormal auditory perception (Acute) Bilateral hip pain (Acute) Bilateral primary osteoarthritis of hip (Acute) Lumbar spondylosis (Acute) Right sided sciatica (Acute) Alcohol intake above recommended sensible limits (Acute) Family history of pancreatic cancer (Acute) Dizziness (Acute) Cerumen impaction (Acute) Right carpal tunnel syndrome (Acute) Surgical History TOE SURGERY [facility] RIGHT FOOT SURGERY 06/13/09 Nasal septoplasty 2009 LEFT WRIST SURGERY 06/13/09 FEMUR FX 1972 WITH LATER SURGERY TO REMOVE PIN BUNIONECTOMY (~1993) BACK SURGERY 2001-L4-5 DECOMPRESSION FOR SPINAL STENOSIS Family History Mother , 67 Pancreatic cancer Breast cancer Sister , 57 Pancreatic cancer Father , 76 Heart disease COPD (chronic obstructive pulmonary disease) Maternal Grandfather Cancer Paternal Grandfather , age 69 Heart disease Maternal Grandmother Cancer Paternal Grandmother , age 73 Diabetes Daughter No problems noted. Daughter No problems noted. Social History Smoking/Tobacco Use Status: Former Tobacco Use tobacco type: cigarettes Quit Date: 11/29/01 Tobacco: How many years used: 37 Smokeless tobacco user: other (Cigarette ) Quit status: has quit before Second Hand Exposure: Yes Smoking risk assessment performed?: Yes Alcohol Intake: current Alcohol Intake frequency: a few times a week Alcohol type: wine and hard liquor Drug use: Never Substance use type: does not use Caregiver/Support person: No Household members: spouse and other Details: Grandchild Housing: house Communication Needs: None Do you need help understanding health information?: Rarely Pets and animals: No Sexually active: No Do you think of yourself as: straight/heterosexual Current gender identity: male What is your relationship status?: How often do you talk on the phone with friends or family?: three or more times per week How often do you get together with friends or relatives?: once per week How often do you attend uatsdin or faith services?: 4 or more times per year Do you belong to any clubs or organized social groups?: no Panel score (0-1 are the most socially isolated patients): 3 What type of physical activity do you participate in: none Frequency: does not exercise Kayli/Congregational: Sabianist Special kayli needs: No Seatbelt use: always Helmet use: No Drive intox or ride w/intox cdl 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 Edema is tense, no appreciable fluctuance. Unable to assess range of motion. No proximal streaking redness No rashes or lesions. no focal neurologic deficits Appropriate mood and affect Course Vital Signs Vital signs: Vital Signs Temperature 36.7 C 08/20/23 14:38 Pulse 60 08/20/23 14:38 Respiratory Rate 18 08/20/23 14:38 Blood Pressure 155/65 H 08/20/23 14:38 Pulse Oximetry 98 08/20/23 14:38 Temperature 34.8 C L 08/20/23 14:48 Temperature Source Oral 08/20/23 14:48 Pulse 60 08/20/23 14:38 Respiratory Rate 18 08/20/23 14:38 Respiratory Effort Normal 08/20/23 14:41 Blood Pressure 155/65 H 08/20/23 14:38 Pulse Oximetry 98 08/20/23 14:38 Oxygen Delivery Method Room Air 08/20/23 14:38 Oxygen Flow Rate 0 08/20/23 14:38 Pain Level 0 08/20/23 14:38 Comment took ibuprofen at 1300 08/20/23 14:38 Lab/Test Results Lab/Test Results: 08/20/23 14:52 Blood Blood Culture - Pending 08/20/23 14:52 Blood Blood Culture - Pending PAWSS Have you Been Recently Intoxicated or Drunk Within the Last 30 days?: No Have you Ever Experienced Previous Episodes of Alcohol Withdrawal?: No Have you ever Experienced Withdrawal Seizures?: No Have you ever Experienced Delirium Tremens(DT)s?: No Have you ever undergone Alcohol Rehabilitation Treatment (i.e, inpt ot outpatient treatment programs)?: No Have you ever Experienced Blackouts?: No Have you ever Combined Alcohol with other Downers within the last 90 days?: No Result: 0
[2023-08-20 15:31] LABS: Abs Immature Grans 0.07 10^3/uL (0.0-0.06); Absolute Basophil Count 0.07 10^3/uL (0.0-0.2); Absolute Eosinophil Count 0.57 10^3/uL (0.0-0.7); Absolute Lymphocyte Count 1.17 10^3/uL (1.2-3.4); Absolute Monocyte Count 1.06 10^3/uL (0.1-0.8); Absolute Neutrophil Count 4.12 10^3/uL (1.2-6.7); Eosinophils % 8.1; HCT 39.3 % (40.0-50.0); HGB 13.5 g/dL (13.5-17.5); Lymphocytes % 16.6; MCHC 34.4 % (32.0-36.0); MCV 87 fL (80-95); MPV 10.4 fL (8.0-11.0); Neutrophils % 58.3; Platelet Count 291 10^3/uL (130-400); RDW 13.3 % (11.8-14.1); RDW-SD 42.4 fL; WBC 7.06 10^3/uL (4.4-10.8)
[2023-08-20 15:43] LABS: ALT 50 U/L (16-63); AST 38 U/L (15-37); Albumin 3.6 g/dL (3.4-5.0); Alkaline Phosphatase 177 U/L (46-116); Anion Gap 7.4 mmol/L (3-11); BUN 18 mg/dL (7-18); Bilirubin, Total 0.6 mg/dL (0.2-1.0); C-Reactive Protein 1.09 mg/dL (0.0-0.3); CO2 24.6 mmol/L (21.0-32.0); CREATININE 1.2 mg/dL (0.70-1.30); Calcium 10.1 mg/dL (8.5-10.1); Chloride 101 mmol/L (98-107); Estimated GFR 64.25 (mL/min/1.73m2); Glucose 232 mg/dL (74-106); Potassium 4.1 mmol/L (3.5-5.1); Sodium 133 mmol/L (136-145); Total Protein 7.5 g/dL (6.4-8.2)
[2023-08-20 15:46] LABS: Source Nasal/Nares
--- NOTE | 2023-08-20 15:49 | W.ORTHOCONSU ---
Date of service: 08/20/23 Time of Service: 15:40 History of Present Illness Narrative: Mr. Marcos is a 73-year-old male who presents to ER with his for continued discomfort, swelling and redness along his right middle finger. He initially suffered a tablesaw injury to his right index, middle and ring fingers back on 06/25/23 which was complicated by continued infection of his right middle finger and a central slip injury. Patient had irrigation and debridement of his right middle finger with extensor tendon and soft tissue repair with placement of K wire on 07/31/23. Unfortunately, he reports striking the finger several times which has caused the pin to move. He contacted the office last when the pin was pushed further in and was recommended to pull it back slightly. Reports striking the finger and pin since then but denies additional injuries. Following his most recent surgery the finger was noted to be in full extension but lately he has noticed flexion at the PIP joint but unable to recall when this started. On Saturday he started to develop more drainage from the laceration along the dorsal aspect of the finger and presented to the ER at which time he was restarted on antibiotics. Reports since Saturday has had increased discomfort described as a dull ache diffusely about the finger, numbness along the volar tip and increased swelling and redness. He denies any additional discharge since Saturday evening. Has been taking antibiotics as prescribed; uses Tums to help with GI upset. Patient has history of DM - last A1c was 6.5 H on 07/17/23. Consults Consult date: 08/20/23 Requesting physician: Manisha Fan Consult Reason Right Middle Finger Wound/Infection Assessment and Plan Assessment and plan (1) Cellulitis of right middle finger: Status: Acute (2) Central slip extensor tendon injury (boutonniere): Status: Acute (3) Open fracture of proximal phalanx of right middle finger: Status: Acute Assessment and plan: Plan: Mr. Marcos is a 73-year-old male who presents to ER with his for continued discomfort, swelling and redness along his right middle finger. He initially suffered a tablesaw injury to his right index, middle and ring fingers back on 06/25/23 which was complicated by continued infection of his right middle finger and a central slip injury. Patient had irrigation and debridement of his right middle finger with extensor tendon and soft tissue repair with placement of K wire on 07/31/23. Due to change in symptoms with worsening discomfort, edema, erythema and return of discharge he presented to the ER three days ago at which time he was started on metronidazole 500 mg q8h as well as Augmentin BID. Due to his worsening symptoms he contacted orthopedic office earlier today and was recommended to present to the ER for evaluation. Labs taken today have normal WBC of 7.06; CRP 1.09 H Glucose today was 232 H - Patient has history of DM - last A1c was 6.5 H on 07/17/23 Based on his x-rays recommend pin removal and change antibiotics - will continue with Flagyl and also start Ciprofloxacin Pin was easily removed by Dr. Lee - slight blood but no other discharge was noted; area was cleaned with gauze. Bandaide was applied along pin site, gauze along the dorsal laceration and Alumafoam splint was placed along the dorsum of the finger with coban Stressed importance of keeping splint in place until follow-up visit; educated his on how to apply splint via coban if it falls off They will contact office if issues arise - will be scheduled for follow-up at office in 3 days I interviewed and examined the patient with Guerda Swift PA-C. I agree with the documentation as above. The assessment and plan were formulated with my direct involvement. I think the increasing swelling and redness is actually related to the pin breaking out of the bone and causing localized trauma. The actual wound of the dorsal PIP joint seems to continue to improve. I would continue with antibiotics utilizing a deloris quinolone for good blood bone penetration. He will also continue the Flagyl. I will see him back on Saturday for repeat evaluation. Donell Lee MD FAAOS FAAHKS Review of Systems All systems reviewed & are unremarkable except as noted in HPI and below Constitutional Constitutional: Denies chills and Denies fever(s) Musculoskeletal Musculoskeletal: Reports numbness and Reports tingling (along volar aspect of distal phalanx) Neurologic Neurologic: Reports numbness and Reports tingling (along volar aspect of distal phalanx) PFSH All Active Problems Cellulitis of right middle finger (Acute) Central slip extensor tendon injury (boutonniere) (Acute) RMF Trigger finger, right middle finger (Acute) PERALTA (dyspnea on exertion) (Acute) Open fracture of proximal phalanx of right middle finger (Acute) Tobacco use disorder (Acute) stopped smoking 11/29/01 Swollen breast (Acute 05/27/05) 0.5 cm mass at 5 o'clock Spinal stenosis (Acute 03/01/11) Sleep apnea (Acute 11/02/09) Shoulder pain (Acute 12/25/05) MRI 12/31; supraspinatus tear on greater tubercle Rotator cuff tear, right (Acute 05/13/15) Lumbago (Acute 09/26/01) MRI 04/28=severe spinal stenosis Knee pain (Acute) left cruciate tear Fatigue (Acute) ED (erectile dysfunction) (Acute 06/13/09) Depression (Acute) Cystitis, acute (Acute 09/26/00) x 3 Chest pain (Acute 09/26/97) Presumed reflux Cerebral palsy (Acute 09/28/08) Cataract (Acute) left IOL Calculus of kidney (Acute) recurrent UTI's w/ left nephrolithiasis COPD (chronic obstructive pulmonary disease) (Acute 06/13/09) BPH without urinary obstruction (Acute) Diabetes mellitus (Chronic) Back pain (Chronic) likely recurrent spinal stenosis Status post wrist surgery (Acute) Status post foot surgery (Acute) Status post bunionectomy (Acute) History of toe surgery (Acute) Chronic prostatitis (Acute) Otitis media, left (Acute) Sensation of fullness in left ear (Acute) Acute diffuse otitis externa of left ear (Acute) Abnormal auditory perception (Acute) Bilateral hip pain (Acute) Bilateral primary osteoarthritis of hip (Acute) Lumbar spondylosis (Acute) Right sided sciatica (Acute) Alcohol intake above recommended sensible limits (Acute) Family history of pancreatic cancer (Acute) Dizziness (Acute) Cerumen impaction (Acute) Right carpal tunnel syndrome (Acute) Surgical History TOE SURG[facility] RIGHT FOOT SURGERY 06/13/09 Nasal septoplasty 2010 LEFT WRIST SURGERY 06/13/09 FEMUR FX 1972 WITH LATER SURGERY TO REMOVE PIN BUNIONECTOMY (~1993) BACK SURGERY 2001-L4-5 DECOMPRESSION FOR SPINAL STENOSIS Family History Mother , 67 Pancreatic cancer Breast cancer Sister , 57 Pancreatic cancer Father , 76 Heart disease COPD (chronic obstructive pulmonary disease) Maternal Grandfather Cancer Paternal Grandfather , age 69 Heart disease Maternal Grandmother Cancer Paternal Grandmother , age 73 Diabetes Daughter No problems noted. Daughter No problems noted. Social History Smoking/Tobacco Use Status: Former Tobacco Use tobacco type: cigarettes Quit Date: 11/29/01 Tobacco: How many years used: 37 Smokeless tobacco user: other (Cigarette ) Quit status: has quit before Second Hand Exposure: Yes Smoking risk assessment performed?: Yes Alcohol Intake: current Alcohol Intake frequency: a few times a week Alcohol type: wine and hard liquor Drug use: Never Substance use type: does not use Caregiver/Support person: No Household members: spouse and other Details: Grandchild Housing: house Communication Needs: None Do you need help understanding health information?: Rarely Pets and animals: No Sexually active: No Do you think of yourself as: straight/heterosexual Current gender identity: male What is your relationship status?: How often do you talk on the phone with friends or family?: three or more times per week How often do you get together with friends or relatives?: once per week How often do you attend jewish or nondenominational services?: 4 or more times per year Do you belong to any clubs or organized social groups?: no Panel score (0-1 are the most socially isolated patients): 3 What type of physical activity do you participate in: none Frequency: does not exercise Kayli/Gnosticist: Pentecostal Special kayli needs: No Seatbelt use: always Helmet use: No Drive intox or ride w/intox food mobile driver: No Do you feel safe at home: Yes Do you feel safe in your relationship?: Yes Exam Const General: cooperative, healthy appearing, comfortable and no acute distress Resp Effort & Inspection: normal respiratory effort and able to speak in complete sentences Extrem Other: Right upper extremity examination: Skin along dorsal and volar aspects of the right middle finger are edematous and erythematous with calor. Pin is extended several millimeters from distal aspect of the finger without signs of purulent drainage, induration or streaking. Sensation is intact along finger except for the volar aspect of the finger extending from DIP joint distally; intact along dorsal aspect. On visual examination his finger is held in flexion at the PIP and slightly at the DIP joints. He is able to demonstrate motion about the MCP joint without discomfort while talking to provider. Laceration along dorsum of the finger has small area of eschar noted without purulent discharge. No discharge is able to be expressed with gentle pressure. There is diffuse tenderness with palpation along the finger from proximal phalanx distally. Results Last Vital Signs Temp 94.6 F L 08/20/23 14:48 Pulse 60 08/20/23 14:38 Resp 18 08/20/23 14:38 BP 155/65 H 08/20/23 14:38 Pulse Ox 98 08/20/23 14:38 Labs 08/20/23 15:15 08/20/23 15:15 Labs: Laboratory Results - last 24 hr 08/20/23 08/20/23 15:15 15:44 WBC 7.06 RBC 4.50 Hgb 13.5 Hct 39.3 L MCV 87 MCH 30.0 MCHC 34.4 RDW 13.3 Plt Count 291 MPV 10.4 Immature Gran % 1.0 Neutrophils % 58.3 Lymphocytes % 16.6 Monocytes % 15.0 Eosinophils % 8.1 Basophils % 1.0 Nucleated RBC % 0.0 Absolute Neutrophils 4.12 Absolute Lymphocytes 1.17 L Absolute Monocytes 1.06 H Absolute Eosinophils 0.57 Absolute Basophils 0.07 Sodium 133 L Potassium 4.1 Chloride 101 Carbon Dioxide 24.6 Anion Gap 7.4 BUN 18 Creatinine 1.2 Est GFR (CKD-EPI 2020) 64.25 Glucose 232 H Calcium 10.1 Total Bilirubin 0.6 AST 38 H ALT 50 Alkaline Phosphatase 177 H C-Reactive Protein 1.09 H Total Protein 7.5 Albumin 3.6 COVID-19 Source Nasal/Nares Imaging Imaging Studies: Obtained right hand x-rays which show percutaneous pin along the distal and middle phalanx but does not appear to be in bone until the proximal phalanx. On lateral view pin appears to be flexed.
[2023-08-20 16:16] LABS: COVID-19 PCR Negative (Negative)
[2023-08-20] MEDS: cefTRIAXone 2 GM/50 ML BAG IVPB (16:45)
[2023-08-20 17:18] VITALS: BP 156/70; PULSE 51; RESP 18; TEMP 34.8; O2SAT 93
== END 2023-08-20 17:41 | disposition home or self-care (01) ==
PROVIDERS: Emergency Provider Emergency Medicine; PCP Family Medicine
DX: L03.011 Cellulitis of right finger (principal)
CPT/HCPCS: 80053; 87040; 87635; 96365; 99284; 73130; 85025; 86140

== ENCOUNTER → 2023-08-23 10:07 | Outpatient (BNVA) | payer MEDICARE, SELFPAY | PROVIDERS: PCP Family Medicine; Referring Provider Family Medicine | DX: S62.612D Displaced fracture of proximal phalanx of right middle finger, subsequent encounter for fracture with routine healing (principal); W31.2XXD Contact with powered woodworking and forming machines, subsequent encounter; L03.011 Cellulitis of right finger; M20.021 Boutonniere deformity of right finger(s) ==

== ENCOUNTER → 2023-08-29 10:46 | Outpatient (BNVA) | payer MEDICARE, SELFPAY | PROVIDERS: PCP Family Medicine; Referring Provider Family Medicine; Visit Provider Nurse Practitioner Gerontology | DX: N40.1 Benign prostatic hyperplasia with lower urinary tract symptoms (principal); N13.8 Other obstructive and reflux uropathy; R35.1 Nocturia; R35.0 Frequency of micturition | CPT/HCPCS: 51798; 81003; 99215 ==

== ENCOUNTER 2023-08-30 07:25 | Day surgery (SDC) | payer MEDICARE, SELFPAY ==
[2023-08-30 07:43] VITALS: BP 130/68; PULSE 64; RESP 16; TEMP 36.3; O2SAT 95
[2023-08-30] MEDS: Tropicam./Phenyleph. (1/2.5%) 5 ML BTL OS ×3 (08:09→08:30)
--- NOTE | 2023-08-30 08:16 | W.ANESPRE ---
General Info Date of Service Date Performed: 08/30/23 Height: 5 ft 7.5 in Weight: 99.7 kg Body Mass Index (BMI): 33.9 Surgical Procedure: Operation Date: 08/30/23 09:40 Proposed Procedure Side Surgeon p Cataract Extraction with IOL Implant Left Yoandy Figueroa MD Meds Allergies and Home Medications Allergies Allergy/AdvReac Type Severity Reaction Status Date / Time Serotonin 5HT-3 Antagonists Allergy Unknown did not Verified 08/29/23 11:00 affect breathing, unsure of reaction Ipratropium Analogues AdvReac Intermediate sore throat Verified 08/29/23 11:00 clindamycin AdvReac Mild Nausea Verified 08/29/23 11:00 nabumetone AdvReac Mild Nausea Verified 08/29/23 11:00 Home Medication Medication Instructions Recorded blood-glucose meter (OneTouch ##1 07/11/15 UltraMini kit) lancets (OneTouch UltraSoft #100 ea 07/13/15 Lancets) methylcellulose (laxative) See Rx Instructions PO DAILY 01/15/20 blood sugar diagnostic (OneTouch #100 ea 10/06/20 Ultra Blue Test Strip) triamcinolone acetonide 0.1 % 1 applic topical BID PRN rash #45 05/21/22 topical cream grams duloxetine 30 mg capsule,delayed 30 mg PO BID #180 caps 01/14/23 release losartan 25 mg tablet 25 mg PO DAILY #90 tabs 02/07/23 tamsulosin 0.4 mg capsule 0.8 mg (2 x 0.4 mg) PO HS #180 caps 05/04/23 antiarthritic combination no.2 900 900 mg PO DAILY 07/29/23 mg tablet (glucosamine-chondroitin) magnesium oxide,aspartate,citr 400 mg PO DAILY 07/29/23 acetaminophen 500 mg tablet 1,000 mg (2 x 500 mg) PO TID #90 07/31/23 tabs ibuprofen 600 mg tablet 600 mg PO TID PRN pain #90 tabs 07/31/23 finasteride 5 mg tablet 5 mg PO DAILY #30 tabs 08/29/23 Current Visit Medications: Current Medications Generic Name Dose Route Start Last Admin Trade Name Freq PRN Reason Stop Dose Admin Acetaminophen 1,000 mg 08/30/23 06:00 Acetaminophen 500 Mg Tab PO 09/29/23 05:59 Q4H PRN PRN Balanced Salt Solution 500 ml 08/30/23 06:00 Balanced Salt Soln.-Plus 500 Ml Bag OP 09/29/23 05:59 DIRECTED CAMILO Miscellaneous Medication 0 ml 08/30/23 06:00 Prednisolone 1%, Moxifloxacin 0.5%, Nepafenac 0.1% 5ml Btl OS 09/29/23 05:59 DIRECTED CAMILO Miscellaneous Medication 0 ml 08/30/23 06:00 08/30/23 08:09 Tropicam./Phenyleph. (1/2.5%) 5 Ml Btl OS 09/29/23 05:59 1 drp DIRECTED CAMILO Administration Tetracaine HCl 0 ml 08/30/23 06:00 Tetracaine 0.5% 4 Ml Btl OS 09/29/23 05:59 DIRECTED CAMILO PFSH Active Problems Active Problems: Problem Status Onset Code BPH w urinary obs/LUTS N40.1, N13.8 Posterior subcapsular age-related cataract of left eye H25.042 Cortical age-related cataract, left eye H25.012 Nuclear age-related cataract, left eye H25.12 Cellulitis of right middle finger L03.011 Central slip extensor tendon injury (boutonniere) M20.029 Trigger finger, right middle finger M65.331 PERALTA (dyspnea on exertion) R06.09 Open fracture of proximal phalanx of right middle finger S62.612B Right carpal tunnel syndrome G56.01 Cerumen impaction H61.20 Dizziness R42 Family history of pancreatic cancer Z80.0 Alcohol intake above recommended sensible limits Z72.89 Right sided sciatica M54.31 Lumbar spondylosis M47.816 Bilateral primary osteoarthritis of hip M16.0 Bilateral hip pain M25.551, M25.552 Abnormal auditory perception H93.299 Acute diffuse otitis externa of left ear H60.312 Sensation of fullness in left ear H93.8X2 Otitis media, left H66.92 Chronic prostatitis N41.1 History of toe surgery Z98.890 Status post bunionectomy Z98.890 Status post foot surgery Z98.890 Status post wrist surgery Z98.890 Back pain M54.9 Diabetes mellitus E11.9 BPH without urinary obstruction N40.0 Calculus of kidney N20.0 Cataract H26.9 Chest pain 09/26/97 R07.9 Cystitis, acute 09/26/00 N30.00 Depression F32.9 ED (erectile dysfunction) 06/13/09 N52.9 Knee pain M25.569 Lumbago 09/26/01 M54.5 Shoulder pain 12/25/05 M25.519 Spinal stenosis 03/01/11 M48.00 Tobacco use disorder F17.200 Medical History Medical History COPD (chronic obstructive pulmonary disease) (06/13/09) Cerebral palsy (09/28/08) (L) Side, can't use hand as well, and limps, does fall every once in a while Fatigue Rotator cuff tear, right (05/13/15) Sleep apnea (11/02/09) Swollen breast (05/27/05) 0.5 cm mass at 5 o'clock Surgical History Surgical History TOE SURGERY [facility] RIGHT FOOT SURGERY 06/13/09 Nasal septoplasty 2009 LEFT WRIST SURGERY 06/13/09 FEMUR FX 1972 WITH LATER SURGERY TO REMOVE PIN BUNIONECTOMY (~1993) BACK SURGERY 2001-L4-5 DECOMPRESSION FOR SPINAL STENOSIS Tobacco Smoking/Tobacco Use Status: Former Tobacco Use Smokeless tobacco user: other (Cigarette ) Passive smoking exposure: Yes Second hand exposure: Yes Alcohol Alcohol Intake: current Alcohol intake frequency: a few times a week Alcohol type: wine and hard liquor Substance Use Substance use: Never Substance use type: does not use Vital Signs and Lab Results Vital Signs Most Recent Vital Signs in EMR: Most Recent Vital Signs Temp Pulse Resp BP Pulse Ox 36.3 C L 64 16 130/68 95 08/30/23 07:43 08/30/23 07:43 08/30/23 07:43 08/30/23 07:43 08/30/23 07:43 Lab Results Blood Type / Crossmatch: No Data to Display Complete Blood Count: White Blood Count 7.06 10^3/uL (4.4-10.8) 08/20/23 15:15 Red Blood Count 4.50 10^6/uL (4.36-5.78) 08/20/23 15:15 Hemoglobin 13.5 g/dL (13.5-17.5) 08/20/23 15:15 Hematocrit 39.3 % (40.0-50.0) L 08/20/23 15:15 Platelet Count 291 10^3/uL (130-400) 08/20/23 15:15 Complete Metabolic Panel: Sodium 133 mmol/L (136-145) L 08/20/23 15:15 Potassium 4.1 mmol/L (3.5-5.1) 08/20/23 15:15 Chloride 101 mmol/L (98-107) 08/20/23 15:15 Carbon Dioxide 24.6 mmol/L (21.0-32.0) 08/20/23 15:15 BUN 18 mg/dL (7-18) 08/20/23 15:15 Creatinine 1.2 mg/dL (0.70-1.30) 08/20/23 15:15 Est GFR (CKD-EPI 2020) 64.25 (mL/min/1.73m2) 08/20/23 15:15 Calcium 10.1 mg/dL (8.5-10.1) 08/20/23 15:15 Albumin 3.6 g/dL (3.4-5.0) 08/20/23 15:15 Glucose 232 mg/dL (74-106) H 08/20/23 15:15 C-Reactive Protein 1.09 mg/dL (0.0-0.3) H 08/20/23 15:15 Liver Function Panel: Alanine Aminotransferase (ALT/SGPT) 50 U/L (16-63) 08/20/23 15:15 Aspartate Amino Transf (AST/SGOT) 38 U/L (15-37) H 08/20/23 15:15 Coagulation Panel: No Data to Display Cardiac Panel: No Data to Display Arterial Blood Gas: No Data to Display Venous Blood Gas: No Data to Display Pancreas Panel: No Data to Display Thyroid Panel: No Data to Display Infectious Disease: Coronavirus (COVID-19)(PCR) Negative (Negative) 08/20/23 15:44 Coronavirus 2019 Source Nasal/Nares 08/20/23 15:44 Blood Cultures: No Data to Display Toxicology Panel: No Data to Display Imaging and Studies Imaging and Studies Study information below may be from another EMR and interpreted by another provider. Please see original notes in EMR for more complete details. Stress Test Summary: Patient Name: Storm Marcos Unit #: [id number] Loc: DI Ordering Provider: Deandre Hernandez M.D. Status: REG [facility] Primary Care Provider: Deandre Hernandez M.D. Date of Exam: 04/15/23 Sex: M Admission Date: 04/15/23 : 1950 Age: 72 APPROVED REPORT Exam: Pharmacologic Patient Location: Out-Patient Room/Bed: Stress Nurse: Avril Aguillon RN Ordering Provider:DEANDRE HERNANDEZ, Contact Number: [phone] BMI: 34.60 Baseline Rhythm: Sinus Bradycardia Indications: PERALTA, Chest pain Medical History Medical History: ETOH abuse, DM, BPH, back pain, COPD, Depression, ED, fatigue, sleep apnea, previous smoker (quit 2001) Cardiac Medications: Tamsulosin, losartan, duloxetine Allergies: Serotonin 5HT-3 antagonist, ipatropium, clindamycin, nabumetone, SSRI's Cardiac Risk Factors: Family hx, diabetes, former smoker, obesity Previous Cardiac Procedures: None Pretest Chest Pain Characteristics: None Exercise History: Sedentary Physical Disabilities: Left arm and left leg Lung Sounds: Clear to auscultation Heart Sounds: Bradycardia Stress Test Details Test: Exercise stress converted to pharmacologic stress due to failure to obtain a diagnostic stress test. Reason for pharmacologic stress test: changed from exercise stress test due to inability to reach target heart rate. Nuclear Acquisition: Rest Tc-99m/Stress Tc-99m 1 day Rest Isotope: Tc-99m Sestamibi. Dose: 11.0 Date: 04/15/2023 Injection Time: 1107 Stress Isotope: Tc-99m Sestamibi. Dose: 33.5 Date: 04/15/2023 Injection Time: 1300 HR Resting HR Supine: 51 bpmMax Heart Rate (APMHR): 149.863227 bpm Resting HR Standin bpmTarget HR (85% APMHR): 126.468168 bpm Max HR Achieved: 119 bpm % of APMHR: 79.87 Recovery HR: 81 bpm HR response to stress: Blunted HR response to stress BP Resting BP Supine: 122/76 mmHg Resting BP Standin/68 mmHg Max BP: 162/74 mmHg Recovery BP: 132/68 mmHg BP response to stress: Normal blood pressure response to stress. ECG Resting ECG: Sinus Bradycardia Ectopy: Rare PVC Stress ECG: Sinus Tachycardia ST Change: Nondiagnostic low heart rate Arrhythmia: Rare PVC Recovery ECG: Sinus Rhythm Recovery ST Change: Nondiagnostic low heart rate Recovery Arrhythmia: Rare PVC Clinical Reason for Termination: Fatigue, Dyspnea Stress Symptoms: Dyspnea, General Fatigue Highest Stage Reached: Stage 2: 2.5 mph at 12% grade. Angina Score: None Rate Pressure Product: 21966 Stress ECG Conclusion 1. Resting electrocardiogram was within normal limits 2. Patient underwent testing using a combination of low-level exercise and pharmacologic stress with regadenoson 3. Peak heart rate achieved was 80% of predicted for age 4. The electrocardiographic portion of the test was nondiagnostic 5. See MPI report Stevens Treadmill Score is which is Low risk. Stress Test Summary STAGE Time (mins) Speed (mph) Grade (%) HR [id number] [id number] [id number]/6895 131.956413545/8788Mod SOB4.5 262.057427Our-cujaiv SOB, fatigue7 1 min post Lexiscan [id number] resolved 3 min post Lexiscan [id number]/74 6 min post Lexiscan [id number] Patient transitioned to walking renee at a speed on 1.0 mph and 0% grade due to inability to reach target HR dues to fatigue and SOB. MPI Conclusion Myocardial perfusion is normal. There is no ischemia or evidence of prior infarction EF 66%, wall motion is normal Radiologist Interpretation Radiologist agrees with Pit Shoveler's Interpretation. Radiologist Interpretation by: Kayli Malcolm MD Interpretation Date/Time: 04/15/2023 16:34:09 Ordered By: Deandre Hernandez M.D. CC: WESTON VILLAGOMEZ,SUSANNE MALDONADO Anesthesia Assessment and Plan Anesthesia History Personal History: No History of Anesthesia Complications Family History: No Family History of Anesthesia Complications Exercise Tolerance Exercise Tolerance: Metabolic Equivalents>4 Pertinent Negatives Pertinent Negatives: No Symptoms of GERD and No History of CVA/TIA Cardiac & Pulmonary Exam Cardiac Exam: Normal S1/S2 Heart Sounds Pulmonary Exam: Clear Bilateral Breath Sounds Implantable Cardiac Device Does patient have a Pacemaker or an ICD?: No Airway Exam Known Difficult Airway: No Mallampati Class: 2 Mouth Opening: Normal (> 3cm) Thyromental Distance: Greater than 3 cm Neck Range of Motion: Full ROM Neck Circumference: Normal Teeth Condition: Normal Dentition ASA Classification ASA Score: ASA 3 Emergency Case?: No NPO Status NPO Status: NPO Clears >2 hours, Solids >8 hours Anesthesia Plan Resuscitation Status: Full Code Anesthesia Technique: MAC Anesthesia Airway Planned: Natural Airway Monitors Used: Standard Monitors Preoperative Comments:: Reports unaware of 5HT3 antagonist allergy, reports the only reactions he's had to medication have been upset stomach. He is okay with trying an MKO.
[2023-08-30] MEDS: Povidone-Iodine Ophth 30 ML BTL (09:00)
[2023-08-30 09:03] VITALS: BMI 33.9
[2023-08-30] MEDS: Balanced Salt Soln.-PLUS 500 ML BAG OP (09:10)
[2023-08-30] MEDS: Tetracaine 0.5% 4 ML BTL OS (09:13)
[2023-08-30] MEDS: Lidocaine 1% Pres-Free 5 ML VIAL (09:14)
[2023-08-30] MEDS: Duovisc Viscoelastic System EACH 1 EACH (09:14)
[2023-08-30] MEDS: Phenylephrine/Lidocaine (15/10) MG/ML 1 ML VIAL (09:15)
[2023-08-30 09:34] VITALS: BP 121/67; PULSE 58; RESP 18; TEMP 36.3; O2SAT 95
--- NOTE | 2023-08-30 09:34 | PDOC.DSDIS_ITS ---
Date of service: 08/30/23 Time of Service: 09:34 Discharge Plan Disposition Patient Disposition: Home Discharge Details Attending Provider: Yoandy Figueroa Primary Care Provider: Deandre Hernandez. Home Meds and New Rx's Prescriptions: No Action methylcellulose (laxative) Powder See Rx Instructions PO DAILY Patient Comments: 1 tsp PO BID; Rx Instructions: 1 tsp PO daily; magnesium oxide,aspartate,citr 400 mg magnesium capsule 400 mg PO DAILY glucosamine-chondroitin 900 mg tablet 900 mg PO DAILY finasteride 5 mg tablet 5 mg PO DAILY Qty: 30 1RF (DME) blood-glucose meter [CMS Global TechnologiesTouch UltraMini] 1 EACH kit 1 ea Miscellaneous DAILY Qty: 1 (DME) lancets [OneTouch UltraSoft Lancets] 1 EACH misc 1 ea Miscellaneous DAILY Qty: 100 Rx Instructions: pls dispense ultra mini lancets. Dx: TYpe II DM (DME) OneTouch Ultra Blue Test Strip Strip See Rx Instructions .ROUTE .MEDSUPPLY Qty: 100 3RF Rx Instructions: test daily triamcinolone acetonide 0.1 % cream 1 applic Topical BID PRN (Reason: rash) Qty: 45 1RF Rx Instructions: apply to rash on testicles BID prn duloxetine 30 mg capsule,delayed release(DR/EC) 30 mg PO BID Qty: 180 3RF losartan 25 mg tablet 25 mg PO DAILY Qty: 90 3RF tamsulosin 0.4 mg capsule 0.8 mg PO HS Qty: 180 3RF Rx Instructions: dose increase 7/18/20 MJS acetaminophen 500 mg tablet 1,000 mg PO TID Qty: 90 0RF ibuprofen 600 mg tablet 600 mg PO TID PRN (Reason: pain) Qty: 90 0RF Discharge Instructions Stand Alone Forms: Post-op Topical Cataract, Press Ganey (DSU) Discharge Orders Discharge Orders: Discharge Order (Routine); Ordered 08/30/23 Ordered By: Yoandy Figueroa DS: Diagnosis Discharge Diagnosis (1) Posterior subcapsular age-related cataract of left eye: Status: Resolved (2) Cortical age-related cataract, left eye: Status: Resolved (3) Nuclear age-related cataract, left eye: Status: Resolved
--- NOTE | 2023-08-30 09:35 | ROE_ITS ---
Date of service: 08/30/23 Time of Service: 09:35 Operative Note Operative Note DATE OF PROCEDURE: 08/30/23 PRE-OP DIAGNOSIS: Nuclear/cortical/posterior subcapsular cataract, left eye POST-OP DIAGNOSIS: same PROCEDURE: Cataract extraction using phacoemulsification with intraocular lens implant, left eye SURGEON: Yoandy Figueroa ANESTHESIA TYPE: Local By Surgeon and MAC Refer to Anesthesia Record PATHOLOGY: none sent COMPLICATIONS: None Patient was transported to: same day Patient's condition: stable Implants: Pal and Pal Tecnis Eyhance [id number] Indications: Progressive decreased vision due to cataract, left eye Procedure Description: CATARACT SURGERY OPERATIVE REPORT PREOPERATIVE DIAGNOSIS: 1. Nuclear/cortical/posterior subcapsular cataract, left eye POSTOPERATIVE DIAGNOSIS: Same OPERATION: 1. Cataract extraction using phacoemulsification with posterior chamber intraocular lens implant, left eye. IOL: IOL Clip [employer] Hanger Attacher/Model: Pal & Pal Tecnis Eyhance DIB00 IOL Power: + 14.5 diopters IOL Serial Number: [id number] Optic Diameter: 6.0 mm Haptic/Overall Diameter: 13.0 mm PHACO INFO: Antonio Ovonyxurion Vision System with OZil and Active Fluidics Cumulative Dispersed Energy (CDE): 12.42 seconds SURGEON: Yoandy Figueroa MD, SHAYAN ANESTHESIA: Monitored [facility] (MAC), with local sub-tenon's anesthetic infiltration COMPLICATIONS: None SPECIMENS: None INDICATIONS FOR PROCEDURE: The patient is a 73-year-old male with history of diminished visual acuity in his left eye secondary to the development of nuclear/cortical/posterior subcapsular cataract. He is significantly symptomatic that he desires cataract surgery and attempt to improve and maximize his vision. See office notes for detailed information. PROCEDURE: The correct surgical eye was identified and marked as the left eye and the pupil was dilated in the preoperative area using mydriatics and cycloplegics. The dilated pupil size was 6.0 mm. Oral sedation was administered in the form of an Imprimis MKO Melt (midazolam 3mg/ketamine 25mg/ondansetron 2mg). The patient was brought to the operating room where cardiopulmonary monitoring was instituted and surgical time-out was performed, confirming the correct operative eye and IOL power. Topical anesthesia was administered and ophthalmic povidone-iodine 5% was instilled into the conjunctival fornices. The yumiko-ocular area was prepped with Betadine 10% solution and draped in the usual sterile fashion for intraocular surgery, including an aperture drape. A Tegaderm transparent film dressing was cut in half and used to cover the lashes and lid margins. Care was taken to sequester the lashes and lid margins under the Tegaderm dressing. A lid speculum was placed between the lids of the operative eye and the Antonio LuxOR Revalia operating microscope was maneuvered into position. Allen scissors were then used to make a conjunctival buttonhole approximately 6mm posterior to the limbus in the inferonasal quadrant. Blunt dissection was carried out to expose bare sclera, and a blunt-tipped sub-tenon?s anesthesia cannula was introduced and passed posteriorly along the globe where non- preserved plain lidocaine was injected into posterior sub-Tenon?s space. A sideport knife was used to make a paracentesis port. Intraocular phenylephrine/lidocaine was injected into the anterior chamber.. The anterior chamber was filled with viscoelastic. A keratome knife was used to construct a 2-plane near-clear corneal tunnel extending 2.0mm into clear cornea. A flap was raised on the anterior capsule and capsulorhexis forceps were used to complete a continuous curvilinear capsulorhexis of 5.0 mm. Balanced salt solution was then used to perform cortical cleaving hydrodissection and nuclear hydrodelineation until the lens could be freely rotated within the capsular bag. The lens nucleus was then disassembled and removed within the capsular bag and iris plane using phacoemulsification. Residual cortical material was removed using the irrigation/aspiration handpiece. The posterior capsule was carefully polished to remove as much residual lens epithelial cells as safely possible. The capsular bag was then inflated and the anterior chamber deepened with viscoelastic. The lens implant described above was inserted into the capsular bag using the Pal and Pal Simplicity pre-loaded injector. A Kuglen hook was used to dial the IOL into position. Residual viscoelastic was then removed first from posterior to the IOL, then from the anterior chamber using the I/A handpiece. The lens implant was noted to center nicely within the capsular bag. The incisions were stromally hydrated, and the anterior chamber was reformed using BSS. Then 0.5cc of moxifloxacin 1.0mg/ml were injected into the capsular bag and anterior chamber. The incisions were checked with a Weck spear and found to be secure. Several drops of ophthalmic povidone-iodine 5% were then applied to the eye followed by two drops of Imprimis combination prednisolone/moxifloxacin/nepafenac solution. The drapes were removed and a clear plastic protective eye shield was placed over the eye. The patient was then returned to Same Day Surgery in stable condition.
--- NOTE | 2023-08-30 09:48 | W.ANESPOSTOP ---
Postoperative Evaluation Date, Time and Location Date Performed: 08/30/23 Time Performed: 09:35 Patient Location: Day Surgery Unit Vital Signs Most Recent Imported Vital Signs: Most Recent Vital Signs Temp Pulse Resp BP Pulse Ox 36.3 C L 58 L 18 121/67 95 08/30/23 09:34 08/30/23 09:34 08/30/23 09:34 08/30/23 09:34 08/30/23 09:34 Pain Score Most Recent Pain Score: Most Recent Pain Score Pain Level 0 08/30/23 09:34 Assessment Mental Status: Awake (Alert & Oriented to Patient Baseline) Airway and Respiratory Function: Patent airway with normal (patient baseline) respiratory exam Cardiovascular Function: Hemodynamically Stable Hydration Status: Adequately Hydrated Nausea & Vomiting: No Nausea or Vomiting Pain: Pt. Denies Any Pain Peripheral Nerve Block: Patient did not receive a nerve block
[2023-08-30 09:54] VITALS: BP 125/61; PULSE 56; RESP 18; TEMP 36.4; O2SAT 94
== END 2023-08-30 10:04 | disposition home or self-care (01) ==
LOC: SUR 07:26
PROVIDERS: PCP Family Medicine; Visit Provider Ophthalmology
PROC: (CPT 66984; principal; 2023-08-30 09:30)
DX: H25.042 Posterior subcapsular polar age-related cataract, left eye (principal); H25.012 Cortical age-related cataract, left eye; H25.12 Age-related nuclear cataract, left eye; G47.33 Obstructive sleep apnea (adult) (pediatric)
CPT/HCPCS: 66984; 00123; V2632

== ENCOUNTER → 2023-09-12 09:39 | Outpatient (BNVA) | payer MEDICARE, SELFPAY | PROVIDERS: PCP Family Medicine; Visit Provider Student in an Organized Health Care Education/Training Program | DX: M20.021 Boutonniere deformity of right finger(s) (principal); S62.612D Displaced fracture of proximal phalanx of right middle finger, subsequent encounter for fracture with routine healing; W31.2XXD Contact with powered woodworking and forming machines, subsequent encounter | CPT/HCPCS: 99213 ==

== ENCOUNTER 2023-09-13 07:25 | Day surgery (SDC) | payer MEDICARE, SELFPAY ==
[2023-09-13 07:30] VITALS: BP 134/62; PULSE 75; RESP 18; TEMP 36.1; O2SAT 94
[2023-09-13] MEDS: Tropicam./Phenyleph. (1/2.5%) 5 ML BTL OD ×3 (07:44→07:57)
--- NOTE | 2023-09-13 07:53 | ANES.PREOP_ITS ---
General Info Date of Service Date Performed: 09/13/23 Height: 5 ft 7.5 in Weight: 101.7 kg Body Mass Index (BMI): 34.6 Surgical Procedure: Operation Date: 09/13/23 09:40 Proposed Procedure Side Surgeon p Cataract Extraction with IOL Implant Right Yoandy Figueroa MD Meds Allergies and Home Medications Allergies Allergy/AdvReac Type Severity Reaction Status Date / Time Ipratropium Analogues AdvReac Intermediate sore throat Verified 09/13/23 07:38 clindamycin AdvReac Mild Nausea Verified 09/13/23 07:38 nabumetone AdvReac Mild Nausea Verified 09/13/23 07:38 Home Medication Medication Instructions Recorded blood-glucose meter (OneTouch ##1 07/11/15 UltraMini kit) lancets (OneTouch UltraSoft #100 ea 07/13/15 Lancets) methylcellulose (laxative) See Rx Instructions PO DAILY 01/15/20 blood sugar diagnostic (OneTouch #100 ea 10/06/20 Ultra Blue Test Strip) triamcinolone acetonide 0.1 % 1 applic topical BID PRN rash #45 05/21/22 topical cream grams duloxetine 30 mg capsule,delayed 30 mg PO BID #180 caps 01/14/23 release losartan 25 mg tablet 25 mg PO DAILY #90 tabs 02/07/23 tamsulosin 0.4 mg capsule 0.8 mg (2 x 0.4 mg) PO HS #180 caps 05/04/23 antiarthritic combination no.2 900 900 mg PO DAILY 07/29/23 mg tablet (glucosamine-chondroitin) magnesium oxide,aspartate,citr 400 mg PO DAILY 07/29/23 acetaminophen 500 mg tablet 1,000 mg (2 x 500 mg) PO TID #90 07/31/23 tabs ibuprofen 600 mg tablet 600 mg PO TID PRN pain #90 tabs 07/31/23 finasteride 5 mg tablet 5 mg PO DAILY #30 tabs 08/29/23 Current Visit Medications: Current Medications Generic Name Dose Route Start Last Admin Trade Name Freq PRN Reason Stop Dose Admin Acetaminophen 1,000 mg 09/13/23 06:00 Acetaminophen 500 Mg Tab PO 10/13/23 05:59 Q4H PRN PRN Balanced Salt Solution 500 ml 09/13/23 06:00 Balanced Salt Soln.-Plus 500 Ml Bag OP 10/13/23 05:59 DIRECTED CAMILO Miscellaneous Medication 0 ml 09/13/23 06:00 Tropicam./Phenyleph. (1/2.5%) 5 Ml Btl OD 10/13/23 05:59 DIRECTED CAMILO Miscellaneous Medication 0 ml 09/13/23 06:00 Prednisolone 1%, Moxifloxacin 0.5%, Bromfenac 0.09% 5ml Btl OD 10/13/23 05:59 DIRECTED CAMILO Tetracaine HCl 0 ml 09/13/23 06:00 Tetracaine 0.5% 4 Ml Btl OD 10/13/23 05:59 DIRECTED CAMILO PFSH Active Problems Active Problems: Problem Status Onset Code Posterior subcapsular age-related cataract, right eye H25.041 Cortical age-related cataract, right eye H25.011 Nuclear age-related cataract, right eye H25.11 Hearing loss H91.90 BPH w urinary obs/LUTS N40.1, N13.8 Posterior subcapsular age-related cataract of left eye H25.042 Cortical age-related cataract, left eye H25.012 Nuclear age-related cataract, left eye H25.12 Cellulitis of right middle finger L03.011 Central slip extensor tendon injury (boutonniere) M20.029 Trigger finger, right middle finger M65.331 PERALTA (dyspnea on exertion) R06.09 Open fracture of proximal phalanx of right middle finger S62.612B Right carpal tunnel syndrome G56.01 Cerumen impaction H61.20 Dizziness R42 Family history of pancreatic cancer Z80.0 Alcohol intake above recommended sensible limits Z72.89 Right sided sciatica M54.31 Lumbar spondylosis M47.816 Bilateral primary osteoarthritis of hip M16.0 Bilateral hip pain M25.551, M25.552 Abnormal auditory perception H93.299 Acute diffuse otitis externa of left ear H60.312 Sensation of fullness in left ear H93.8X2 Otitis media, left H66.92 Chronic prostatitis N41.1 History of toe surgery Z98.890 Status post bunionectomy Z98.890 Status post foot surgery Z98.890 Status post wrist surgery Z98.890 Back pain M54.9 Diabetes mellitus E11.9 BPH without urinary obstruction N40.0 Calculus of kidney N20.0 Cataract H26.9 Chest pain 09/26/97 R07.9 Cystitis, acute 09/26/00 N30.00 Depression F32.9 ED (erectile dysfunction) 06/13/09 N52.9 Knee pain M25.569 Lumbago 09/26/01 M54.5 Shoulder pain 12/25/05 M25.519 Spinal stenosis 03/01/11 M48.00 Tobacco use disorder F17.200 Medical History Medical History COPD (chronic obstructive pulmonary disease) (06/13/09) Cerebral palsy (09/28/08) (L) Side, can't use hand as well, and limps, does fall every once in a while Fatigue Rotator cuff tear, right (05/13/15) Sleep apnea (11/02/09) Swollen breast (05/27/05) 0.5 cm mass at 5 o'clock Surgical History Surgical History S/P cataract surgery TOE SURGERY [facility] RIGHT FOOT SURGERY 06/13/09 Nasal septoplasty 2009 LEFT WRIST SURGERY 06/13/09 FEMUR FX 1972 WITH LATER SURGERY TO REMOVE PIN BUNIONECTOMY (~1993) BACK SURGERY 2001-L4-5 DECOMPRESSION FOR SPINAL STENOSIS Tobacco Smoking/Tobacco Use Status: Former Tobacco Use Smokeless tobacco user: other (Cigarette ) Passive smoking exposure: Yes Second hand exposure: Yes Alcohol Alcohol Intake: current Alcohol intake frequency: a few times a week Alcohol type: wine and hard liquor Substance Use Substance use: Never Substance use type: does not use Vital Signs and Lab Results Vital Signs Most Recent Vital Signs in EMR: Most Recent Vital Signs Temp Pulse Resp BP Pulse Ox 36.1 C L 75 18 134/62 94 09/13/23 07:30 09/13/23 07:30 09/13/23 07:30 09/13/23 07:30 09/13/23 07:30 Lab Results Blood Type / Crossmatch: No Data to Display Complete Blood Count: White Blood Count 7.06 10^3/uL (4.4-10.8) 08/20/23 15:15 Red Blood Count 4.50 10^6/uL (4.36-5.78) 08/20/23 15:15 Hemoglobin 13.5 g/dL (13.5-17.5) 08/20/23 15:15 Hematocrit 39.3 % (40.0-50.0) L 08/20/23 15:15 Platelet Count 291 10^3/uL (130-400) 08/20/23 15:15 Complete Metabolic Panel: Sodium 133 mmol/L (136-145) L 08/20/23 15:15 Potassium 4.1 mmol/L (3.5-5.1) 08/20/23 15:15 Chloride 101 mmol/L (98-107) 08/20/23 15:15 Carbon Dioxide 24.6 mmol/L (21.0-32.0) 08/20/23 15:15 BUN 18 mg/dL (7-18) 08/20/23 15:15 Creatinine 1.2 mg/dL (0.70-1.30) 08/20/23 15:15 Est GFR (CKD-EPI 2020) 64.25 (mL/min/1.73m2) 08/20/23 15:15 Calcium 10.1 mg/dL (8.5-10.1) 08/20/23 15:15 Albumin 3.6 g/dL (3.4-5.0) 08/20/23 15:15 Glucose 232 mg/dL (74-106) H 08/20/23 15:15 C-Reactive Protein 1.09 mg/dL (0.0-0.3) H 08/20/23 15:15 Liver Function Panel: Alanine Aminotransferase (ALT/SGPT) 50 U/L (16-63) 08/20/23 15: 15 Aspartate Amino Transf (AST/SGOT) 38 U/L (15-37) H 08/20/23 15: 15 Coagulation Panel: No Data to Display Cardiac Panel: No Data to Display Arterial Blood Gas: No Data to Display Venous Blood Gas: No Data to Display Pancreas Panel: No Data to Display Thyroid Panel: No Data to Display Infectious Disease: Coronavirus (COVID-19)(PCR) Negative (Negative) 08/20/23 15:44 Coronavirus 2019 Source Nasal/Nares 08/20/23 15:44 Blood Cultures: No Data to Display Toxicology Panel: No Data to Display Imaging and Studies Imaging and Studies Study information below may be from another EMR and interpreted by another provider. Please see original notes in EMR for more complete details. Stress Test Summary: Patient Name: Storm Marcos Unit #: [id number] Loc: DI Ordering Provider: Deandre Hernandez M.D. Status: [facility] Primary Care Provider: Deandre Hernandez M.D. Date of Exam: 04/15/23 Sex: M Admission Date: 04/15/23 : 1950 Age: 72 APPROVED REPORT Exam: Pharmacologic Patient Location: Out-Patient Room/Bed: Stress Nurse: Avril Aguillon RN Ordering Provider:DEANDRE HERNANDEZ, Contact Number: [phone] BMI: 34.60 Baseline Rhythm: Sinus Bradycardia Indications: PERALTA, Chest pain Medical History Medical History: ETOH abuse, DM, BPH, back pain, COPD, Depression, ED, fatigue, sleep apnea, previous smoker (quit 2001) Cardiac Medications: Tamsulosin, losartan, duloxetine Allergies: Serotonin 5HT-3 antagonist, ipatropium, clindamycin, nabumetone, SSRI's Cardiac Risk Factors: Family hx, diabetes, former smoker, obesity Previous Cardiac Procedures: None Pretest Chest Pain Characteristics: None Exercise History: Sedentary Physical Disabilities: Left arm and left leg Lung Sounds: Clear to auscultation Heart Sounds: Bradycardia Stress Test Details Test: Exercise stress converted to pharmacologic stress due to failure to obtain a diagnostic stress test. Reason for pharmacologic stress test: changed from exercise stress test due to inability to reach target heart rate. Nuclear Acquisition: Rest Tc-99m/Stress Tc-99m 1 day Rest Isotope: Tc-99m Sestamibi. Dose: 11.0 Date: 04/15/2023 Injection Time: 1107 Stress Isotope: Tc-99m Sestamibi. Dose: 33.5 Date: 04/15/2023 Injection Time: 1300 HR Resting HR Supine: 51 bpmMax Heart Rate (APMHR): 149.652033 bpm Resting HR Standin bpmTarget HR (85% APMHR): 126.537095 bpm Max HR Achieved: 119 bpm % of APMHR: 79.87 Recovery HR: 81 bpm HR response to stress: Blunted HR response to stress BP Resting BP Supine: 122/76 mmHg Resting BP Standin/68 mmHg Max BP: 162/74 mmHg Recovery BP: 132/68 mmHg BP response to stress: Normal blood pressure response to stress. ECG Resting ECG: Sinus Bradycardia Ectopy: Rare PVC Stress ECG: Sinus Tachycardia ST Change: Nondiagnostic low heart rate Arrhythmia: Rare PVC Recovery ECG: Sinus Rhythm Recovery ST Change: Nondiagnostic low heart rate Recovery Arrhythmia: Rare PVC Clinical Reason for Termination: Fatigue, Dyspnea Stress Symptoms: Dyspnea, General Fatigue Highest Stage Reached: Stage 2: 2.5 mph at 12% grade. Angina Score: None Rate Pressure Product: 32253 Stress ECG Conclusion 1. Resting electrocardiogram was within normal limits 2. Patient underwent testing using a combination of low-level exercise and pharmacologic stress with regadenoson 3. Peak heart rate achieved was 80% of predicted for age 4. The electrocardiographic portion of the test was nondiagnostic 5. See MPI report Stevens Treadmill Score is which is Low risk. Stress Test Summary STAGE Time (mins) Speed (mph) Grade (%) HR [id number] [id number]/7695 Nczxpcmw11112/6895 131.314040602/8788Mod SOB4.5 262.990101Kit-givzey SOB, fatigue7 1 min post Lexiscan [id number]/90SOB resolved 3 min post Lexiscan uoghwjwhs60095/74 6 min post Lexiscan [id number]/6897 Patient transitioned to walking renee at a speed on 1.0 mph and 0% grade due to inability to reach target HR dues to fatigue and SOB. MPI Conclusion Myocardial perfusion is normal. There is no ischemia or evidence of prior infarction EF 66%, wall motion is normal Radiologist Interpretation Radiologist agrees with Reeling Operator's Interpretation. Radiologist Interpretation by: Kayli Malcolm MD Interpretation Date/Time: 04/15/2023 16:34:09 Ordered By: Deandre Hernandez M.D. CC: WESTON VILLAGOMEZ,SUSANNE MALDONADO Anesthesia Assessment and Plan Anesthesia History Personal History: No History of Anesthesia Complications Family History: No Family History of Anesthesia Complications Exercise Tolerance Exercise Tolerance: Metabolic Equivalents>4 Cardiac & Pulmonary Exam Cardiac Exam: Normal S1/S2 Heart Sounds Pulmonary Exam: Clear Bilateral Breath Sounds Implantable Cardiac Device Does patient have a Pacemaker or an ICD?: No Airway Exam Known Difficult Airway: No Mallampati Class: 2 Mouth Opening: Normal (> 3cm) Thyromental Distance: Greater than 3 cm Neck Range of Motion: Full ROM Neck Circumference: Normal Teeth Condition: Normal Dentition ASA Classification ASA Score: ASA 3 Emergency Case?: No NPO Status NPO Status: NPO Clears >2 hours, Solids >8 hours Anesthesia Plan Resuscitation Status: Full Code Anesthesia Technique: MAC Anesthesia Airway Planned: Natural Airway Monitors Used: Standard Monitors
[2023-09-13 07:55] VITALS: BMI 34.6
[2023-09-13] MEDS: Balanced Salt Soln.-PLUS 500 ML BAG OP (08:58)
[2023-09-13] MEDS: Tetracaine 0.5% 4 ML BTL OD (09:00)
[2023-09-13] MEDS: Lidocaine 1% Pres-Free 5 ML VIAL (09:01)
[2023-09-13] MEDS: Duovisc Viscoelastic System EACH 1 EACH (09:01)
[2023-09-13] MEDS: Phenylephrine/Lidocaine (15/10) MG/ML 1 ML VIAL (09:03)
[2023-09-13] MEDS: Povidone-Iodine Ophth 30 ML BTL (09:04)
[2023-09-13 09:18] VITALS: BP 108/59; PULSE 61; RESP 16; TEMP 36.3; O2SAT 98
--- NOTE | 2023-09-13 09:19 | W.PM.DSUDISC ---
Date of service: 09/13/23 Time of Service: 09:19 Discharge Plan Disposition Patient Disposition: Home Discharge Details Attending Provider: Yoandy Figueroa Primary Care Provider: Deandre Hernandez. Home Meds and New Rx's Prescriptions: No Action methylcellulose (laxative) Powder See Rx Instructions PO DAILY Patient Comments: 1 tsp PO BID; Rx Instructions: 1 tsp PO daily; magnesium oxide,aspartate,citr 400 mg magnesium capsule 400 mg PO DAILY glucosamine-chondroitin 900 mg tablet 900 mg PO DAILY finasteride 5 mg tablet 5 mg PO DAILY Qty: 30 1RF (DME) blood-glucose meter [Efficiency NetworkTouch UltraMini] 1 EACH kit 1 ea Miscellaneous DAILY Qty: 1 (DME) lancets [OneTouch UltraSoft Lancets] 1 EACH misc 1 ea Miscellaneous DAILY Qty: 100 Rx Instructions: pls dispense ultra mini lancets. Dx: TYpe II DM (DME) OneTouch Ultra Blue Test Strip Strip See Rx Instructions .ROUTE .MEDSUPPLY Qty: 100 3RF Rx Instructions: test daily triamcinolone acetonide 0.1 % cream 1 applic Topical BID PRN (Reason: rash) Qty: 45 1RF Rx Instructions: apply to rash on testicles BID prn duloxetine 30 mg capsule,delayed release(DR/EC) 30 mg PO BID Qty: 180 3RF losartan 25 mg tablet 25 mg PO DAILY Qty: 90 3RF tamsulosin 0.4 mg capsule 0.8 mg PO HS Qty: 180 3RF Rx Instructions: dose increase 7/18/20 MJS acetaminophen 500 mg tablet 1,000 mg PO TID Qty: 90 0RF ibuprofen 600 mg tablet 600 mg PO TID PRN (Reason: pain) Qty: 90 0RF Discharge Instructions Stand Alone Forms: Post-op Topical Cataract, Press Ganey (DSU) Discharge Orders Discharge Orders: Discharge Order (Routine); Ordered 09/13/23 Ordered By: Yoandy Figueroa DS: Diagnosis Discharge Diagnosis (1) Posterior subcapsular age-related cataract, right eye: Status: Resolved (2) Cortical age-related cataract, right eye: Status: Resolved (3) Nuclear age-related cataract, right eye: Status: Resolved
--- NOTE | 2023-09-13 09:20 | W.PM.OP ---
Date of service: 09/13/23 Time of Service: 09:20 Operative Note Operative Note DATE OF PROCEDURE: 09/13/23 PRE-OP DIAGNOSIS: Nuclear/cortical/posterior subcapsular cataract, right eye POST-OP DIAGNOSIS: same PROCEDURE: Cataract extraction using phacoemulsification with intraocular lens implant, right eye SURGEON: Yoandy Figueroa ANESTHESIA TYPE: Local By Surgeon and MAC Refer to Anesthesia Record ESTIMATED BLOOD LOSS: 0 PATHOLOGY: none sent COMPLICATIONS: None Patient was transported to: same day Patient's condition: stable Implants: Pal & Pal Tecnis Eyhance [id number] Indications: Progressive visual loss due to cataract, right eye Procedure Description: CATARACT SURGERY OPERATIVE REPORT PREOPERATIVE DIAGNOSIS: 1. Nuclear/cortical/posterior subcapsular cataract, right eye POSTOPERATIVE DIAGNOSIS: Same OPERATION: 1. Cataract extraction using phacoemulsification with posterior chamber intraocular lens implant, right eye. IOL: IOL [employer] Operator/Model: Pal & Pal Tecnis Eyhance DIB00 IOL Power: + 14.5 diopters IOL Serial Number: [id number] Optic Diameter: 6.0mm Haptic/Overall Diameter: 13.0mm PHACO INFO: Antonio FlyReadyJeturion Vision System with OZil and Active Fluidics Cumulative Dispersed Energy (CDE): 11.05 seconds SURGEON: Yoandy Figueroa MD, SHAYAN ANESTHESIA: Monitored Anesthesia Care (MAC), with local sub-tenon's anesthetic infiltration COMPLICATIONS: None SPECIMENS: None INDICATIONS FOR PROCEDURE: The patient is a 73-year-old male with history of diminished visual acuity in both eyes secondary to the development of bilateral nuclear/cortical/posterior subcapsular cataract. He has already undergone cataract surgery in the left eye and is doing well postoperatively. He now presents for cataract surgery in the right eye. See office notes for detailed information. PROCEDURE: The correct surgical eye was identified and marked as the right eye and the pupil was dilated in the preoperative area using mydriatics and cycloplegics. The dilated pupil size was 6.5 mm. Oral sedation was administered in the form of an Imprimis MKO Melt (midazolam 3mg/ketamine 25mg/ondansetron 2mg). The patient was brought to the operating room where cardiopulmonary monitoring was instituted and surgical time-out was performed, confirming the correct operative eye and IOL power. Topical anesthesia was administered and ophthalmic povidone-iodine 5% was instilled into the conjunctival fornices. The yumiko-ocular area was prepped with Betadine 10% solution and draped in the usual sterile fashion for intraocular surgery, including an aperture drape. A Tegaderm transparent film dressing was cut in half and used to cover the lashes and lid margins. Care was taken to sequester the lashes and lid margins under the Tegaderm dressing. A lid speculum was placed between the lids of the operative eye and the Antonio LuxOR Revalia operating microscope was maneuvered into position. Allen scissors were then used to make a conjunctival buttonhole approximately 6mm posterior to the limbus in the inferonasal quadrant. Blunt dissection was carried out to expose bare sclera, and a blunt-tipped sub-tenon?s anesthesia cannula was introduced and passed posteriorly along the globe where non-preserved plain lidocaine was injected into posterior sub-Tenon?s space. A sideport knife was used to make a paracentesis port. Intraocular phenylephrine/lidocaine was injected into the anterior chamber. The anterior chamber was filled with viscoelastic. A keratome knife was used to construct a 2-plane clear corneal tunnel extending 2.0mm into clear cornea. A flap was raised on the anterior capsule and capsulorhexis forceps were used to complete a continuous curvilinear capsulorhexis of 5.0 mm. Balanced salt solution was then used to perform cortical cleaving hydrodissection and nuclear hydrodelineation until the lens could be freely rotated within the capsular bag. The lens nucleus was then disassembled and removed within the capsular bag and iris plane using phacoemulsification. Residual cortical material was removed using the I/A handpiece. The posterior capsule was carefully polished to remove as much residual lens epithelial cells as safely possible. The capsular bag was then inflated and the anterior chamber deepened with cohesive viscoelastic. The lens implant described above was inserted into the capsular bag using the Pal and Paula Simplicity pre-loaded injector. A Kuglen hook was used to dial the IOL into position. Residual viscoelastic was then removed first from posterior to the IOL, then from the anterior chamber using the I/A handpiece. The lens implant was noted to center nicely within the capsular bag. The incisions were stromally hydrated, and the anterior chamber was reformed using BSS. Then 0.5cc of moxifloxacin 1.0mg/ml were injected into the capsular bag and anterior chamber. The incisions were checked with a Weck spear and found to be secure. Several drops of ophthalmic povidone-iodine 5% were then applied to the eye followed by two drops of Imprimis combination prednisolone/moxifloxacin/nepafenac solution. The drapes were removed and a clear plastic protective eye shield was placed over the eye. The patient was then returned to Same Day Surgery in stable condition.
--- NOTE | 2023-09-13 09:35 | W.ANESPOSTOP ---
Postoperative Evaluation Date, Time and Location Date Performed: 09/13/23 Time Performed: 09:28 Patient Location: Day Surgery Unit Vital Signs Most Recent Imported Vital Signs: Most Recent Vital Signs Temp Pulse Resp BP Pulse Ox 36.3 C L 61 16 108/59 L 98 09/13/23 09:18 09/13/23 09:18 09/13/23 09:18 09/13/23 09:18 09/13/23 09:18 Pain Score Most Recent Pain Score: Most Recent Pain Score Pain Level 0 09/13/23 09:18 Assessment Mental Status: Awake (Alert & Oriented to Patient Baseline) Airway and Respiratory Function: Patent airway with normal (patient baseline) respiratory exam Cardiovascular Function: Hemodynamically Stable Hydration Status: Adequately Hydrated Nausea & Vomiting: No Nausea or Vomiting Pain: Pt. Denies Any Pain Peripheral Nerve Block: Patient did not receive a nerve block
[2023-09-13 09:47] VITALS: BP 101/52; PULSE 63; RESP 16; TEMP 36.6; O2SAT 98
== END 2023-09-13 09:50 | disposition home or self-care (01) ==
LOC: SUR 07:25
PROVIDERS: PCP Family Medicine; Visit Provider Ophthalmology
PROC: (CPT 66984; principal; 2023-09-13 09:30)
DX: H25.041 Posterior subcapsular polar age-related cataract, right eye (principal); H25.011 Cortical age-related cataract, right eye; H25.11 Age-related nuclear cataract, right eye; F17.200 Nicotine dependence, unspecified, uncomplicated; Z98.42 Cataract extraction status, left eye
CPT/HCPCS: 66984; 00123; V2632

== ENCOUNTER → 2023-10-31 09:23 | Outpatient (BNVA) | payer MEDICARE, SELFPAY | PROVIDERS: PCP Family Medicine; Visit Provider Student in an Organized Health Care Education/Training Program | DX: S62.612D Displaced fracture of proximal phalanx of right middle finger, subsequent encounter for fracture with routine healing (principal); X58.XXXD Exposure to other specified factors, subsequent encounter; M20.021 Boutonniere deformity of right finger(s) ==

== ENCOUNTER → 2023-11-28 10:25 | Outpatient (BNVA) | payer MEDICARE, SELFPAY | PROVIDERS: PCP Family Medicine; Referring Provider Family Medicine; Visit Provider Nurse Practitioner Gerontology | DX: N40.1 Benign prostatic hyperplasia with lower urinary tract symptoms (principal); N13.8 Other obstructive and reflux uropathy | CPT/HCPCS: 51798; 99213 ==

== ENCOUNTER 2024-02-25 08:02 | Outpatient (CLI) | payer MEDICARE, SELFPAY ==
--- NOTE | 2024-02-25 08:00 | RT.EKG_ITS ---
APPROVED REPORT Exam: Resting ECG Reason for Exam: PERALTA Patient Location: O HR:52 bpm ECG Measurements Heart Rate 52 AXIS WA 185 P 13 QRSd 100 QRS 57 QT 436 T 80 QTc 406 Conclusion Sinus rhythm...normal P axis, V-rate 50- 99 Normal Electrocardiogram
== END 2024-02-25 08:03 | disposition home or self-care (01) ==
LOC: DI.CARD 08:03
PROVIDERS: PCP Family Medicine; Visit Provider Internal Medicine Cardiovascular Disease
DX: R06.09 Other forms of dyspnea (principal)
CPT/HCPCS: 93010

== ENCOUNTER → 2024-02-25 11:12 | Outpatient (BNVA) | payer MEDICARE, SELFPAY | PROVIDERS: PCP Family Medicine; Referring Provider Family Medicine; Visit Provider Internal Medicine Cardiovascular Disease | DX: I95.1 Orthostatic hypotension (principal); R06.09 Other forms of dyspnea | CPT/HCPCS: 93005; 99214 ==

== ENCOUNTER → 2024-02-26 12:23 | Outpatient (BNVA) | payer MEDICARE, SELFPAY | PROVIDERS: PCP Family Medicine; Referring Provider Family Medicine; Visit Provider Nurse Practitioner Gerontology ==

== ENCOUNTER 2024-02-26 14:47 | Outpatient (CLI) | payer MEDICARE, SELFPAY ==
[2024-02-26 22:36] LABS: PSA, Diagnostic 1.4 ng/mL (<=6.5)
== END 2024-02-26 14:48 | disposition home or self-care (01) ==
LOC: LBO 14:48
PROVIDERS: PCP Family Medicine; Visit Provider Nurse Practitioner Gerontology
DX: N40.1 Benign prostatic hyperplasia with lower urinary tract symptoms (principal); N13.8 Other obstructive and reflux uropathy; R42 Dizziness and giddiness; E11.9 Type 2 diabetes mellitus without complications; N52.9 Male erectile dysfunction, unspecified
CPT/HCPCS: 36415; 51798; 99214; 84153

== ENCOUNTER → 2024-03-19 14:23 | Outpatient (BNVA) | payer MEDICARE, SELFPAY | PROVIDERS: PCP Family Medicine; Referring Provider Family Medicine; Visit Provider Student in an Organized Health Care Education/Training Program | DX: G56.01 Carpal tunnel syndrome, right upper limb (principal) | CPT/HCPCS: 99213 ==

== ENCOUNTER 2024-04-01 12:17 | Day surgery (SDC) | payer MEDICARE, SELFPAY ==
--- NOTE | 2024-04-01 11:55 | PDOC.DSDIS_ITS ---
Date of service: 04/01/24 Time of Service: 11:55 Discharge Plan Disposition Patient Disposition: Home Condition: Good Discharge Details Reason For Visit: R ECTR Attending Provider: Donell Lee Primary Care Provider: Deandre Hernandez Home Meds and New Rx's Prescriptions: New hydrocodone-acetaminophen 5-325 mg tablet 1 tab PO Q6H PRN (Reason: pain) Qty: 4 0RF acetaminophen 500 mg tablet 1,000 mg PO TID Qty: 90 0RF ibuprofen 600 mg tablet 600 mg PO TID PRN (Reason: pain) Qty: 90 0RF Continued methylcellulose (laxative) Powder See Rx Instructions PO DAILY Patient Comments: 1 tsp PO BID; Rx Instructions: 1 tsp PO daily; magnesium oxide,aspartate,citr 400 mg magnesium capsule 400 mg PO DAILY glucosamine-chondroitin 900 mg tablet 900 mg PO DAILY duloxetine 30 mg capsule,delayed release(DR/EC) 30 mg PO BID Qty: 180 3RF tamsulosin 0.4 mg capsule 0.4 mg PO HS Qty: 90 3RF (DME) blood-glucose meter [X3M GamesTouch UltraMini] 1 EACH kit 1 ea Miscellaneous DAILY Qty: 1 (DME) lancets [OneTouch UltraSoft Lancets] 1 EACH misc 1 ea Miscellaneous DAILY Qty: 100 Rx Instructions: pls dispense ultra mini lancets. Dx: TYpe II DM (DME) OneTouch Ultra Blue Test Strip Strip See Rx Instructions .ROUTE .MEDSUPPLY Qty: 100 3RF Rx Instructions: test daily triamcinolone acetonide 0.1 % cream 1 applic Topical BID PRN (Reason: rash) Qty: 45 1RF Rx Instructions: apply to rash on testicles BID prn losartan 25 mg tablet 25 mg PO DAILY Qty: 90 3RF Discontinued ibuprofen 600 mg tablet 600 mg PO TID PRN (Reason: pain) Qty: 90 0RF Discharge Instructions Stand Alone Forms: Rosa Covarrubias Tunnel Release Referrals: Donell Lee MD [ [facility] STAFF PHYSICIAN] - Activity:: Activity as Tolerated Remove Dressings/Wound Care:: 48 hours Shower/Bathe:: 48 hours Diet:: As Tolerated Discharge Orders Discharge Orders: Discharge Order (Routine); Ordered 04/01/24 Ordered By: Carlton Mcqueen DS: Diagnosis Discharge Diagnosis (1) Right carpal tunnel syndrome: Status: Acute
[2024-04-01 12:53] VITALS: BP 132/64; PULSE 57; RESP 16; TEMP 36.1; O2SAT 97
[2024-04-01] MEDS: Lactated Ringers 1,000 ML 80 ML IV (12:58)
--- NOTE | 2024-04-01 13:33 | HPE_ITS ---
Assessment and Plan Assessment and plan (1) Right carpal tunnel syndrome: Status: Acute Assessment and plan: Storm is a 73-year-old male who has known carpal tunnel syndrome about the right side. He is here today for right carpal tunnel release. I discussed the risks of the procedure to include, but not limited to, bleeding, infection, palmar pain, stiffness, damage to nerves, damage to vessels, damage to tendons, weakness, recurrence, and incomplete release. Storm does primarily use his right hand given the limitation in the left side from cerebral palsy. He may use it afterwards and we discussed this previously in the office. However, this does increase the risk of some ongoing pain, stiffness, wound healing difficulties on the right side. Nevertheless, given these risks, Storm desires to proceed. History of Present Illness Narrative: Storm is a 73-year-old male with cerebral palsy affecting his left side. He has significant symptoms of carpal tunnel syndrome on the right side. He is try to manage this nonoperatively but unfortunately continues to be limited by painful numbness tingling, and burning. Given this, he is here for carpal tunnel releas e today. Please see the previous office note for complete detailed history. He does have diabetes which he reports to be doing well. His last A1c was 7.2. He has had some issues with shortness of breath but this has been ruled out is cardiac in nature and has generally been okay as of late. No recent infections. Review of Systems All systems reviewed & are unremarkable except as noted in HPI and below PFSH All Active Problems (Updated 04/01/24 @ 13:38 by Donell Lee MD) Orthostatic hypotension (Acute) Hearing loss (Acute) BPH w urinary obs/LUTS (Acute) Central slip extensor tendon injury (boutonniere) (Acute) RMF Trigger finger, right middle finger (Acute) PERALTA (dyspnea on exertion) (Acute) Right carpal tunnel syndrome (Acute) s/p R ECTR (04/01/24) Cerumen impaction (Acute) Dizziness (Acute) Family history of pancreatic cancer (Acute) Alcohol intake above recommended sensible limits (Acute) Right sided sciatica (Acute) Lumbar spondylosis (Acute) Bilateral primary osteoarthritis of hip (Acute) Bilateral hip pain (Acute) Abnormal auditory perception (Acute) Acute diffuse otitis externa of left ear (Acute) Sensation of fullness in left ear (Acute) Otitis media, left (Acute) Chronic prostatitis (Acute) History of toe surgery (Acute) Status post bunionectomy (Acute) Status post foot surgery (Acute) Status post wrist surgery (Acute) Back pain (Chronic) likely recurrent spinal stenosis Diabetes mellitus (Chronic) BPH without urinary obstruction (Acute) Calculus of kidney (Acute) recurrent UTI's w/ left nephrolithiasis Cataract (Acute) left IOL Chest pain (Acute 09/26/97) Presumed reflux Cystitis, acute (Acute 09/26/00) x 3 Depression (Acute) ED (erectile dysfunction) (Acute 06/13/09) Knee pain (Acute) left cruciate tear Lumbago (Acute 09/26/01) MRI 04/28=severe spinal stenosis Shoulder pain (Acute 12/25/05) MRI 12/31; supraspinatus tear on greater tubercle Spinal stenosis (Acute 03/01/11) Tobacco use disorder (Acute) stopped smoking 11/29/01 Medical History COPD (chronic obstructive pulmonary disease) (06/13/09) Cerebral palsy (09/28/08) (L) Side, can't use hand as well, and limps, does fall every once in a while Fatigue Rotator cuff tear, right (05/13/15) Sleep apnea (11/02/09) Swollen breast (05/27/05) 0.5 cm mass at 5 o'clock Surgical History S/P cataract surgery TOE SURGERY [facility] RIGHT FOOT SURGERY 06/13/09 Nasal septoplasty 2009 LEFT WRIST SURGERY 06/13/09 FEMUR FX 1972 WITH LATER SURGERY TO REMOVE PIN BUNIONECTOMY (~1993) BACK SURGERY 2001-L4-5 DECOMPRESSION FOR SPINAL STENOSIS Family History Mother , 67 Pancreatic cancer Breast cancer Sister , 57 Pancreatic cancer Father , 76 Heart disease COPD (chronic obstructive pulmonary disease) Maternal Grandfather Cancer Paternal Grandfather , age 69 Heart disease Maternal Grandmother Cancer Paternal Grandmother , age 73 Diabetes Daughter No problems noted. Daughter No problems noted. Social History Smoking/Tobacco Use Status: Former Tobacco Use tobacco type: cigarettes Quit Date: 11/29/01 Tobacco: How many years used: 37 Smokeless tobacco user: other (Cigarette ) Quit status: quit date established Second Hand Exposure: Yes Smoking risk assessment performed?: Yes Alcohol Intake: current Alcohol Intake frequency: a few times a week Alcohol type: wine and hard liquor Drug use: Never Substance use type: does not use Caregiver/Support person: No Household members: spouse and other Details: Grandchild Housing: house Communication Needs: None Do you need help understanding health information?: Rarely Pets and animals: No Sexually active: No Do you think of yourself as: straight/heterosexual Current gender identity: male What is your relationship status?: How often do you talk on the phone with friends or family?: three or more times per week How often do you get together with friends or relatives?: once per week How often do you attend mosque or confucianist services?: 4 or more times per year Do you belong to any clubs or organized social groups?: no Panel score (0-1 are the most socially isolated patients): 3 What type of physical activity do you participate in: none Frequency: does not exercise Kayli/Christianity: Roman Catholic Special kayli needs: No Seatbelt use: always Helmet use: No 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 Do you feel safe at home: Yes Do you feel safe in your relationship?: Yes Meds Allergies and Home Medications Allergies Allergy/AdvReac Type Severity Reaction Status Date / Time Ipratropium Analogues AdvReac Intermediate sore throat Verified 04/01/24 12:36 clindamycin AdvReac Mild Nausea Verified 04/01/24 12:36 nabumetone AdvReac Mild Nausea Verified 04/01/24 12:36 Home Medications Medication Instructions Recorded Confirmed Type blood-glucose meter (OneTouch ##1 07/11/15 03/19/24 History UltraMini kit) lancets (OneTouch UltraSoft #100 ea 07/13/15 03/19/24 History Lancets) methylcellulose (laxative) See Rx Instructions PO DAILY 01/15/20 04/01/24 History blood sugar diagnostic (OneTouch #100 ea 10/06/20 03/19/24 Rx Ultra Blue Test Strip) triamcinolone acetonide 0.1 % 1 applic topical BID PRN rash #45 05/21/22 04/01/24 Rx topical cream grams antiarthritic combination no.2 900 900 mg PO DAILY 07/29/23 03/31/24 History mg tablet (glucosamine-chondroitin) magnesium oxide,aspartate,citr 400 mg PO DAILY 07/29/23 04/01/24 History losartan 25 mg tablet 25 mg PO DAILY #90 tabs 12/11/23 04/01/24 Rx duloxetine 30 mg capsule,delayed 30 mg PO BID #180 caps 01/28/24 04/01/24 Rx release tamsulosin 0.4 mg capsule 0.4 mg PO HS #90 caps 02/26/24 04/01/24 Rx acetaminophen 500 mg tablet 1,000 mg (2 x 500 mg) PO TID #90 04/01/24 Rx tabs hydrocodone 5 mg-acetaminophen 325 1 tab PO Q6H PRN pain #4 tabs 04/01/24 Rx mg tablet ibuprofen 600 mg tablet 600 mg PO TID PRN pain #90 tabs 04/01/24 Rx Exam Const General: cooperative, healthy appearing and comfortable Resp Effort & Inspection: normal respiratory effort Auscultation: clear to auscultation bilaterally Cardio Rate: regular rate Rhythm: regular rhythm Results Last Vital Signs Temp 36.1 C L 04/01/24 12:53 Pulse 57 L 04/01/24 12:53 Resp 16 04/01/24 12:53 BP 132/64 04/01/24 12:53 Pulse Ox 97 04/01/24 12:53
--- NOTE | 2024-04-01 13:40 | ANES.PREOP_ITS ---
General Info Date of Service Date Performed: 04/01/24 Height: 5 ft 7 in Weight: 99 kg Body Mass Index (BMI): 34.2 Surgical Procedure: Operation Date: 04/01/24 14:55 Proposed Procedure Side Surgeon p Wrist ECTR Right Donell Lee MD Actual Procedure Side Surgeon p Wrist ECTR right Right Donell Lee MD Pre-Op Diagnosis Post-Op Diagnosis Right carpal tunnel syndrome Right carpal tunnel syndrome Meds Allergies and Home Medications Allergies Allergy/AdvReac Type Severity Reaction Status Date / Time Ipratropium Analogues AdvReac Intermediate sore throat Verified 04/01/24 12:36 clindamycin AdvReac Mild Nausea Verified 04/01/24 12:36 nabumetone AdvReac Mild Nausea Verified 04/01/24 12:36 Home Medication Medication Instructions Recorded blood-glucose meter (OneTouch ##1 07/11/15 UltraMini kit) lancets (OneTouch UltraSoft #100 ea 07/13/15 Lancets) methylcellulose (laxative) See Rx Instructions PO DAILY 01/15/20 blood sugar diagnostic (OneTouch #100 ea 10/06/20 Ultra Blue Test Strip) triamcinolone acetonide 0.1 % 1 applic topical BID PRN rash #45 05/21/22 topical cream grams antiarthritic combination no.2 900 900 mg PO DAILY 07/29/23 mg tablet (glucosamine-chondroitin) magnesium oxide,aspartate,citr 400 mg PO DAILY 07/29/23 losartan 25 mg tablet 25 mg PO DAILY #90 tabs 12/11/23 duloxetine 30 mg capsule,delayed 30 mg PO BID #180 caps 01/28/24 release tamsulosin 0.4 mg capsule 0.4 mg PO HS #90 caps 02/26/24 acetaminophen 500 mg tablet 1,000 mg (2 x 500 mg) PO TID #90 04/01/24 tabs hydrocodone 5 mg-acetaminophen 325 1 tab PO Q6H PRN pain #4 tabs 04/01/24 mg tablet ibuprofen 600 mg tablet 600 mg PO TID PRN pain #90 tabs 04/01/24 Current Visit Medications: Current Medications Generic Name Dose Route Start Last Admin Trade Name Freq PRN Reason Stop Dose Admin Acetaminophen 650 mg 04/01/24 11:54 Acetaminophen 325 Mg Tab PO 05/01/24 11:53 Q4H PRN PRN Hydrocodone Bitart/Acetaminophen 0 tab 04/01/24 11:54 Hydrocodone 5/Acetaminophen 325 Tab PO 05/01/24 11:53 Q3H PRN PRN Pain Ringer's Solution 1,000 mls @ 80 mls/hr 04/01/24 06:00 04/01/24 12:58 IV 04/01/24 23:59 80 mls/hr INFUSION CAMILO Administration Cefazolin Sodium/Dextrose 2 gm in 50 mls @ 100 mls/hr 04/01/24 06:00 Ancef Duplex IVPB 04/01/24 23:59 PREOP CAMILO IV Miscellaneous Supplies 1 each 04/01/24 06:00 Iv Access IV 04/01/24 23:59 DIRECTED CAMILO Sodium Chloride 0 ml 04/01/24 06:00 Normal Saline Flush 10 Ml Syr IV 04/01/24 23:59 PRN PRN Sodium Chloride 0 ml 04/01/24 06:00 Normal Saline 10 Ml Vial IJ 04/01/24 23:59 DIRECTED PRN Sterile Water 0 ml 04/01/24 06:00 Water,Injection,Sterile 10 Ml Vial IJ 04/01/24 23:59 DIRECTED PRN PFSH Active Problems Active Problems: Problem Status Onset Code Orthostatic hypotension I95.1 Posterior subcapsular age-related cataract, right eye H25.041 Cortical age-related cataract, right eye H25.011 Nuclear age-related cataract, right eye H25.11 Hearing loss H91.90 BPH w urinary obs/LUTS N40.1, N13.8 Posterior subcapsular age-related cataract of left eye H25.042 Cortical age-related cataract, left eye H25.012 Nuclear age-related cataract, left eye H25.12 Central slip extensor tendon injury (boutonniere) M20.029 Trigger finger, right middle finger M65.331 PERALTA (dyspnea on exertion) R06.09 Right carpal tunnel syndrome G56.01 Cerumen impaction H61.20 Dizziness R42 Family history of pancreatic cancer Z80.0 Alcohol intake above recommended sensible limits Z72.89 Right sided sciatica M54.31 Lumbar spondylosis M47.816 Bilateral primary osteoarthritis of hip M16.0 Bilateral hip pain M25.551, M25.552 Abnormal auditory perception H93.299 Acute diffuse otitis externa of left ear H60.312 Sensation of fullness in left ear H93.8X2 Otitis media, left H66.92 Chronic prostatitis N41.1 History of toe surgery Z98.890 Status post bunionectomy Z98.890 Status post foot surgery Z98.890 Status post wrist surgery Z98.890 Back pain M54.9 Diabetes mellitus E11.9 BPH without urinary obstruction N40.0 Calculus of kidney N20.0 Cataract H26.9 Chest pain 09/26/97 R07.9 Cystitis, acute 09/26/00 N30.00 Depression F32.9 ED (erectile dysfunction) 06/13/09 N52.9 Knee pain M25.569 Lumbago 09/26/01 M54.5 Shoulder pain 12/25/05 M25.519 Spinal stenosis 03/01/11 M48.00 Tobacco use disorder F17.200 Medical History Medical History COPD (chronic obstructive pulmonary disease) (06/13/09) Cerebral palsy (09/28/08) (L) Side, can't use hand as well, and limps, does fall every once in a while Fatigue Rotator cuff tear, right (05/13/15) Sleep apnea (11/02/09) Swollen breast (05/27/05) 0.5 cm mass at 5 o'clock Surgical History Surgical History S/P cataract surgery TOE SURGERY [facility] RIGHT FOOT SURGERY 06/13/09 Nasal septoplasty 2009 LEFT WRIST SURGERY 06/13/09 FEMUR FX 1972 WITH LATER SURGERY TO REMOVE PIN BUNIONECTOMY (~1993) BACK SURGERY 2001-L4-5 DECOMPRESSION FOR SPINAL STENOSIS Tobacco Smoking/Tobacco Use Status: Former Tobacco Use Smokeless tobacco user: other (Cigarette ) Passive smoking exposure: No Second hand exposure: Yes Alcohol Alcohol Intake: current Alcohol intake frequency: a few times a week Alcohol type: wine and hard liquor Substance Use Substance use: Never Substance use type: does not use Vital Signs and Lab Results Vital Signs Most Recent Vital Signs in EMR: Most Recent Vital Signs Temp Pulse Resp BP Pulse Ox 36.1 C L 57 L 16 132/64 97 04/01/24 12:53 04/01/24 12:53 04/01/24 12:53 04/01/24 12:53 04/01/24 12:53 Lab Results Blood Type / Crossmatch: No Data to Display Complete Blood Count: No Data to Display Complete Metabolic Panel: No Data to Display Liver Function Panel: No Data to Display Coagulation Panel: No Data to Display Cardiac Panel: No Data to Display Arterial Blood Gas: No Data to Display Venous Blood Gas: 2 No Data to Display Pancreas Panel: No Data to Display Thyroid Panel: No Data to Display Infectious Disease: No Data to Display Blood Cultures: No Data to Display Toxicology Panel: No Data to Display Imaging and Studies Imaging and Studies Study information below may be from another EMR and interpreted by another provider. Please see original notes in EMR for more complete details. Stress Test Summary: Patient Name: Storm Marcos Unit #: [id number] Loc: Ordering Provider: Deandre Hernandez M.D. Status: [facility] Primary Care Provider: Deandre Hernandez M.D. Date of Exam: 04/15/23 Sex: M Admission Date: 04/15/23 : 1950 Age: 72 APPROVED REPORT Exam: Pharmacologic Patient Location: Out-Patient Room/Bed: Stress Nurse: Avril Aguillon RN Ordering Provider:DEANDRE HERNANDEZ, Contact Number: [phone] BMI: 34.60 Baseline Rhythm: Sinus Bradycardia Indications: PERALTA, Chest pain Medical History Medical History: ETOH abuse, DM, BPH, back pain, COPD, Depression, ED, fatigue, sleep apnea, previous smoker (quit 2001) Cardiac Medications: Tamsulosin, losartan, duloxetine Allergies: Serotonin 5HT-3 antagonist, ipatropium, clindamycin, nabumetone, SSRI's Cardiac Risk Factors: Family hx, diabetes, former smoker, obesity Previous Cardiac Procedures: None Pretest Chest Pain Characteristics: None Exercise History: Sedentary Physical Disabilities: Left arm and left leg Lung Sounds: Clear to auscultation Heart Sounds: Bradycardia Stress Test Details Test: Exercise stress converted to pharmacologic stress due to failure to obtain a diagnostic stress test. Reason for pharmacologic stress test: changed from exercise stress test due to inability to reach target heart rate. Nuclear Acquisition: Rest Tc-99m/Stress Tc-99m 1 day Rest Isotope: Tc-99m Sestamibi. Dose: 11.0 Date: 04/15/2023 Injection Time: 1107 Stress Isotope: Tc-99m Sestamibi. Dose: 33.5 Date: 04/15/2023 Injection Time: 1300 HR Resting HR Supine: 51 bpmMax Heart Rate (APMHR): 149.980492 bpm Resting HR Standin bpmTarget HR (85% APMHR): 126.420566 bpm Max HR Achieved: 119 bpm % of APMHR: 79.87 Recovery HR: 81 bpm HR response to stress: Blunted HR response to stress BP Resting BP Supine: 122/76 mmHg Resting BP Standin/68 mmHg Max BP: 162/74 mmHg Recovery BP: 132/68 mmHg BP response to stress: Normal blood pressure response to stress. ECG Resting ECG: Sinus Bradycardia Ectopy: Rare PVC Stress ECG: Sinus Tachycardia ST Change: Nondiagnostic low heart rate Arrhythmia: Rare PVC Recovery ECG: Sinus Rhythm Recovery ST Change: Nondiagnostic low heart rate Recovery Arrhythmia: Rare PVC Clinical Reason for Termination: Fatigue, Dyspnea Stress Symptoms: Dyspnea, General Fatigue Highest Stage Reached: Stage 2: 2.5 mph at 12% grade. Angina Score: None Rate Pressure Product: 01530 Stress ECG Conclusion 1. Resting electrocardiogram was within normal limits 2. Patient underwent testing using a combination of low-level exercise and pharmacologic stress with regadenoson 3. Peak heart rate achieved was 80% of predicted for age 4. The electrocardiographic portion of the test was nondiagnostic 5. See MPI report Stevens Treadmill Score is which is Low risk. Stress Test Summary STAGE Time (mins) Speed (mph) Grade (%) HR [id number] [id number] [id number]/8788Mod SOB4.5 [id number]-[id number] SOB, fatigue7 1 min post Lexiscan [id number] resolved 3 min post Lexiscan [id number] 6 min post Lexiscan [id number] Patient transitioned to walking renee at a speed on 1.0 mph and 0% grade due to inability to reach target HR dues to fatigue and SOB. MPI Conclusion Myocardial perfusion is normal. There is no ischemia or evidence of prior infarction EF 66%, wall motion is normal Radiologist Interpretation Radiologist agrees with Artificial Inseminator's Interpretation. Radiologist Interpretation by: Kayli Malcolm MD Interpretation Date/Time: 04/15/2023 16:34:09 Ordered By: Deandre Hernandez M.D. CC: WESTON VILLAGOMEZ,SUSANNE MALDONADO Anesthesia Assessment and Plan Anesthesia History Personal History: No History of Anesthesia Complications Family History: No Family History of Anesthesia Complications Exercise Tolerance Exercise Tolerance: Metabolic Equivalents>4 Pertinent Negatives Pertinent Negatives: No Symptoms of GERD Cardiac & Pulmonary Exam Cardiac Exam: Normal S1/S2 Heart Sounds Pulmonary Exam: Clear Bilateral Breath Sounds Implantable Cardiac Device Does patient have a Pacemaker or an ICD?: No Airway Exam Known Difficult Airway: No Mallampati Class: 2 Mouth Opening: Normal (> 3cm) Thyromental Distance: Greater than 3 cm Neck Range of Motion: Full ROM Neck Circumference: Normal Teeth Condition: Normal Dentition ASA Classification ASA Score: ASA 2 Emergency Case?: No NPO Status NPO Status: NPO Clears >2 hours, Solids >8 hours Anesthesia Plan Resuscitation Status: Full Code Anesthesia Technique: MAC Anesthesia Airway Planned: Natural Airway Monitors Used: Standard Monitors
[2024-04-01 13:41] VITALS: BMI 34.2
[2024-04-01] MEDS: ceFAZolin 2 GM/50 ML BAG IVPB (13:55)
[2024-04-01] MEDS: Lidocaine 1% Multi-Dose W/EPI 1/100,000 50 ML VIAL (14:08)
[2024-04-01 14:15] VITALS: BP 111/52; PULSE 60; RESP 16; TEMP 36.7; O2SAT 94
--- NOTE | 2024-04-01 14:32 | W.ANESPOSTOP ---
Postoperative Evaluation Date, Time and Location Date Performed: 04/01/24 Time Performed: 14:32 Patient Location: Day Surgery Unit Vital Signs Most Recent Imported Vital Signs: Most Recent Vital Signs Temp Pulse Resp BP Pulse Ox 36.7 C 60 16 111/52 L 94 04/01/24 14:15 04/01/24 14:15 04/01/24 14:15 04/01/24 14:15 04/01/24 14:15 Pain Score Most Recent Pain Score: Most Recent Pain Score Pain Level 0 04/01/24 14:15 Assessment Mental Status: Awake (Alert & Oriented to Patient Baseline) Airway and Respiratory Function: Patent airway with normal (patient baseline) respiratory exam Cardiovascular Function: Hemodynamically Stable Hydration Status: Adequately Hydrated Nausea & Vomiting: No Nausea or Vomiting Pain: Pt. Denies Any Pain Peripheral Nerve Block: Patient did not receive a nerve block
[2024-04-01 14:45] VITALS: BP 135/66; PULSE 60; RESP 16; TEMP 36.1; O2SAT 94
--- NOTE | 2024-04-01 14:50 | W.PM.OP ---
Date of service: 04/01/24 Time of Service: 14:00 Operative Note Operative Note DATE OF PROCEDURE: 04/01/24 PRE-OP DIAGNOSIS: Right Carpal Tunnel Syndrome POST-OP DIAGNOSIS: same PROCEDURE: Right Endoscopic Carpal Tunnel Release SURGEON: Donell Lee ANESTHESIA TYPE: General:No Airway Refer to Anesthesia Record ESTIMATED BLOOD LOSS: 0 PATHOLOGY: none sent TOURNIQUET TIME: 4 COMPLICATIONS: None Patient was transported to: same day Patient's condition: stable Indications: I have seen Storm in clinic for symptoms of carpal tunnel syndrome. The numbness, tingling, and pain limited function. Clinical exam findings with nerve conduction tests confirmed the diagnosis of carpal tunnel syndrome. Nonoperative measures such as bracing, time, activity modifications had been tried but disability and pain persisted. I discussed carpal tunnel release with the patient. I reviewed the risks of the procedure to include, but not limited to, bleeding, infection, pain, stiffness, incomplete release, damage to nerves or vessels, persistent numbness, recurrence. Despite these risks, the patient elected to proceed. Findings: There was tightened carpal tunnel. This was dilated and released successfully with the endoscopic with increased space within the tunnel. The antebrachial fascia was released proximally freeing the median nerve at the wrist. Procedure Description: Storm was greeted in the preoperative holding area where the correct side was identified and marked. The consent was reviewed with the patient and signed. The history and physical was updated. All questions were answered. He was taken back to the operating room. The patient was placed into the supine position on the operating room table with the right arm on an arm board. A nonsterile tourniquet was placed high onto the arm. All bony prominences were well padded. Prophylactic antibiotics in the form of Cefazolin were administered. The right arm was then prepped with Chloraprep and draped in a standard fashion with stockinette and extremity drape. A timeout to confirm correct identity, side and site, procedure, allergies, anesthesia, and medical concerns was performed. The surgical site was marked in the volar wrist creases in line with the radial border of the fourth ray. This area was anesthetized with approximately 6cc of 1% Lidocaine. The limb was then exsanguinated with an Esmarch. The skin was incised with a 15 blade, approximately 1cm. The skin only was cut and the deeper tissue was dissected bluntly with a tenotomy scissor, avoiding passing nerve and venous structures. The fascia was penetrated and opened bluntly. A two-prong skin hook was placed under this proximal fascial edge. A series of hamate finders were used to identify and dilate the carpal tunnel. Synovial elevator was used to free synovial attachments to the underside of the transverse carpal ligament. My thumb was kept in the palm to nafisa the distal extent of the carpal tunnel and correctly position the hand. The Microaire endoscope was inserted without difficulty and without resistance. Excellent visualization showed horizontally running fibers of the transverse carpal ligament (TCL). The distal extent of the TCL was visualized and the end of the scope palpated with the thumb. The blade was elevated and withdrawn from distal to proximal. The TCL was split into two flaps. The endoscope was reinserted to confirm complete release and any remnant ligament was incised. The scope was withdrawn and the proximal aspect of the carpal tunnel was grossly inspected and appeared release with the median nerve visible. The antebrachial fascia at the level of the wrist was then freed from the overlying skin and then the underlying median nerve with blunt dissection. This was transected longitudinally for about 3cm proximal to the wrist incision. The wound was then irrigated with easy flow of irrigant distally and proximally. The incision was closed with a single 4-0 Nylon suture. The wound was dressed with Xeroform, Gauze, Kerlix and Reggie. The tourniquet was deflated with the initial dressing and held with some pressure. Blood flow returned easily to all digits with capillary refill less than 2 seconds. The patient tolerated the procedure well and was returned to the Same Day Surgery area in a stable condition suffering no known complication.
== END 2024-04-01 15:13 | disposition home or self-care (01) ==
LOC: SUR 12:17
PROVIDERS: PCP Family Medicine; Visit Provider Student in an Organized Health Care Education/Training Program
PROC: 01N54ZZ Release Median Nerve, Percutaneous Endoscopic Approach (ICD-10-PCS; CPT 29848; principal; 2024-04-01 14:45)
DX: G56.01 Carpal tunnel syndrome, right upper limb (principal); E11.9 Type 2 diabetes mellitus without complications; I95.1 Orthostatic hypotension
CPT/HCPCS: 29848; J0690; J2001; J2004; J2704

== ENCOUNTER → 2024-04-10 10:39 | Outpatient (BNVA) | payer MEDICARE, SELFPAY | PROVIDERS: PCP Family Medicine; Referring Provider Family Medicine | DX: Z47.89 Encounter for other orthopedic aftercare (principal); G56.01 Carpal tunnel syndrome, right upper limb ==

== ENCOUNTER → 2024-06-17 10:25 | Outpatient (BNVA) | payer MEDICARE, SELFPAY | PROVIDERS: PCP Family Medicine; Referring Provider Family Medicine; Visit Provider Nurse Practitioner Gerontology | DX: N40.1 Benign prostatic hyperplasia with lower urinary tract symptoms (principal); N13.8 Other obstructive and reflux uropathy; R35.1 Nocturia | CPT/HCPCS: 51798; 99214 ==

== ENCOUNTER → 2024-09-28 13:56 | Outpatient (BNVA) | payer MEDICARE, SELFPAY | PROVIDERS: PCP Family Medicine; Referring Provider Family Medicine; Visit Provider Nurse Practitioner Gerontology | DX: N40.1 Benign prostatic hyperplasia with lower urinary tract symptoms (principal); N13.8 Other obstructive and reflux uropathy | CPT/HCPCS: 51798; 99213 ==

== ENCOUNTER 2025-02-08 03:16 | Outpatient (CLI) | payer MEDICARE, SELFPAY ==
[2025-02-08 13:53] LABS: CREATININE 1.3 mg/dL (0.70-1.30); Calculated LDL 71 mg/dL (<100); Cholesterol 155 mg/dL (<200); Estimated GFR 58.01 (mL/min/1.73m2); HDL Cholesterol 65 mg/dL (>or=40); Potassium 4.2 mmol/L (3.5-5.1); Triglyceride 95 mg/dL (<150)
[2025-02-09 09:49] LABS: Hepatitis C Ab w Rflx HCV PCR Negative (Negative)
[2025-02-09 10:12] LABS: HIV-1/2 Ag & Ab Screen Negative (Negative)
[2025-02-09 10:28] LABS: HBs Antibody, Quant <3.1 mIU/mL (See Note); Hep B Surface Ab Negative (See Note); Hepatitis B Core Antibody Negative (Negative); Hepatitis B Surface Antigen Negative (Negative)
== END 2025-02-08 03:17 | disposition home or self-care (01) ==
PROVIDERS: PCP Family Medicine; Visit Provider Family Medicine
DX: Z11.59 Encounter for screening for other viral diseases (principal); I10 Essential (primary) hypertension; Z00.00 Encounter for general adult medical examination without abnormal findings; E78.5 Hyperlipidemia, unspecified
CPT/HCPCS: 36415; 80061; 86704; 86706; 86803; 87340; 87389; 82565; 84132

== ENCOUNTER 2025-03-17 14:45 | Emergency (ER) | payer MEDICARE, SELFPAY ==
[2025-03-17] VITALS (21 sets, daily range): BP systolic 138–163; BP diastolic 51–88; PULSE 43–68; RESP 12–26; TEMP 36.6; O2SAT 92–98
--- NOTE | 2025-03-17 14:45 | RT.EKG_ITS ---
APPROVED REPORT Exam: Resting ECG Reason for Exam: Chest Pain Patient Location: E HR:64 bpm ECG Measurements Heart Rate 64 AXIS TN 186 P 48 QRSd 99 QRS 92 QT 413 T 80 QTc 427 Conclusion Sinus rhythm...normal P axis, V-rate 60- 99 Right axis deviation...QRS axis ( 91,269) ST elevation, consider inferior injury...ST >0.08mV, II III aVF ST elevation II and aVF concerning for STEMI. No prior for comparrison. WD
--- NOTE | 2025-03-17 15:00 | DI.RAD_ITS ---
Exam(s) XR PORTABLE CHEST AP EXAM: XR PORTABLE CHEST AP CLINICAL HISTORY: chest pain TECHNIQUE: 2D digital imaging was performed. COMPARISON: CR CHEST 2 VIEWS PA,LAT from 05/08/2012 FINDINGS: LUNGS: Mild peribronchial thickening no focal infiltrate. No pleural abnormality seen. HEART: Normal size. AORTA: Normal diameter. Pulmonary artery vascular prominence. BONES: Prominent osteophytes in the thoracic spine. Soft tissues: Unremarkable. IMPRESSION: Pulmonary artery prominence and peribronchial thickening could indicate mild CHF. No focal infiltrat e is visible. DATA REPOSITORY: RADIATION DOSE DELIVERED:
--- NOTE | 2025-03-17 15:06 | W.ED.GENAD ---
Discharge Plan Disposition Patient Disposition: Transfer-Acute Inpatient Care Specific Acute Inpt Facility: [facility] Condition: Stable Discharge Details Clinical Impression: ST elevation (STEMI) myocardial infarction Primary Care Provider: Deandre Hernandez ED Provider: Flor Sun Home Meds and New Rx's Prescriptions: No Action methylcellulose (laxative) Powder See Rx Instructions PO DAILY Patient Comments: 1 tsp PO BID; Rx Instructions: 1 tsp PO daily; magnesium 250 mg tablet 250 mg PO DAILY tamsulosin 0.4 mg capsule 0.4 mg PO HS Qty: 90 3RF (DME) blood-glucose meter [IsoPlexisTouch UltraMini] 1 EACH kit 1 ea Miscellaneous DAILY Qty: 1 (DME) lancets [OneTouch UltraSoft Lancets] 1 EACH misc 1 ea Miscellaneous DAILY Qty: 100 Rx Instructions: pls dispense ultra mini lancets. Dx: TYpe II DM (DME) OneTouch Ultra Blue Test Strip Strip See Rx Instructions .ROUTE .MEDSUPPLY Qty: 100 3RF Rx Instructions: test daily duloxetine 30 mg capsule,delayed release(DR/EC) 30 mg PO BID Qty: 180 3RF losartan 25 mg tablet 25 mg PO DAILY Qty: 90 3RF tadalafil [Cialis] 5 mg tablet 5 mg PO DAILY Qty: 90 3RF Rx Instructions: Take for BPH triamcinolone acetonide 0.1 % cream 1 applic Topical BID PRN (Reason: rash) Qty: 45 1RF Rx Instructions: apply to rash on testicles BID prn acetaminophen 500 mg tablet 1,000 mg PO TID Qty: 90 0RF ibuprofen 600 mg tablet 600 mg PO TID PRN (Reason: pain) Qty: 90 0RF HPI General Date/Time Provider Initiated Documentation: 03/17/25 14:49. HPI Narrative: 74-year-old male with history of COPD presents for evaluation of chest pain. Chest pain began around 11:30am after he was raking leaves outside. He states the pain did not start until after he finished exerting himself. It has been constant in the center of his chest since that time. It radiates to his back and he has pain in his jaw. He did take some Tums without any relief. He states the intensity of the pain waxes and wanes but it does not go away. Denies any fevers or chills. No cough or cold. No reflux symptoms. No leg pain or swelling. No history of high blood pressure or high cholesterol. He has borderline history of diabetes with his recent hemoglobin A1c of 6.2. He is not on any medications for diabetes. He does have a history of smoking for over 30 years but quit 20 years ago. No history of cardiac disease. He states that he had a stress test many years ago which was reportedly unremarkable. He is not on any blood thinners. No history of blood clots. Related Data Home Medications ?Medication ?Instructions ?Recorded ?Confirmed blood-glucose meter (OneTouch ##1 07/11/15 03/17/25 UltraMini kit) lancets (OneTouch UltraSoft #100 ea 07/13/15 03/17/25 Lancets) methylcellulose (laxative) See Rx Instructions PO DAILY 01/15/20 03/17/25 blood sugar diagnostic (OneTouch #100 ea 10/06/20 03/17/25 Ultra Blue Test Strip) acetaminophen 500 mg tablet 1,000 mg (2 x 500 mg) PO TID #90 04/01/24 03/17/25 tabs ibuprofen 600 mg tablet 600 mg PO TID PRN pain #90 tabs 04/01/24 03/17/25 duloxetine 30 mg capsule,delayed 30 mg PO BID #180 caps 07/15/24 03/17/25 release losartan 25 mg tablet 25 mg PO DAILY #90 tabs 07/15/24 03/17/25 tamsulosin 0.4 mg capsule 0.4 mg PO HS #90 caps 09/28/24 03/17/25 tadalafil 5 mg tablet (Cialis) 5 mg PO DAILY #90 tabs 10/14/24 03/17/25 magnesium 250 mg tablet 250 mg PO DAILY 02/04/25 03/17/25 triamcinolone acetonide 0.1 % 1 applic topical BID PRN rash #45 02/05/25 03/17/25 topical cream grams Previous Rx's ?Medication ?Instructions ?Recorded blood sugar diagnostic (OneTouch #100 ea 10/06/20 Ultra Blue Test Strip) acetaminophen 500 mg tablet 1,000 mg (2 x 500 mg) PO TID #90 04/01/24 tabs ibuprofen 600 mg tablet 600 mg PO TID PRN pain #90 tabs 04/01/24 duloxetine 30 mg capsule,delayed 30 mg PO BID #180 caps 07/15/24 release losartan 25 mg tablet 25 mg PO DAILY #90 tabs 07/15/24 tamsulosin 0.4 mg capsule 0.4 mg PO HS #90 caps 09/28/24 tadalafil 5 mg tablet (Cialis) 5 mg PO DAILY #90 tabs 10/14/24 triamcinolone acetonide 0.1 % 1 applic topical BID PRN rash #45 02/05/25 topical cream grams Allergies Allergy/AdvReac Type Severity Reaction Status Date / Time Ipratropium Analogues AdvReac Intermediate sore throat Verified 03/17/25 15:01 clindamycin AdvReac Mild Nausea Verified 03/17/25 15:01 nabumetone AdvReac Mild Nausea Verified 03/17/25 15:01 finasteride AdvReac Breast Verified 03/17/25 15:01 tenderness/enlargement General Stated Complaint: Chest Pain MARZENA: 2 Review of Systems Narrative: Remainder of review of systems otherwise negative except for as noted in the HPI x 10. Exam Narrative Exam Narrative: General: non-toxic, no respiratory distress, comfortable HEENT: normocephalic, atraumatic, lids and lashes normal, PERRL, EOMI, anicteric sclera, no conjunctival injection, moist oral mucosa Card: regular rate and rhythm, S1S2, no murmurs, rubs, or gallops Lungs: good air entry, clear to auscultation bilaterally. no wheezes, rales, rhonchi, or retractions Abd: soft, non-tender, non-distended, normal bowel sounds, no rebound or guarding, no peritoneal signs Musculoskeletal: full range of motion of arms and legs, no tenderness to palpation. no clubbing, cyanosis, or edema Neurologic: appropriate for age, strength normal Psych: alert and oriented Skin: no petechiae, no lesions, warm and dry Course Vital Signs Vital signs: Vital Signs Temperature 36.6 C 03/17/25 14:47 Pulse 64 03/17/25 14:47 Respiratory Rate 16 03/17/25 14:47 Blood Pressure 161/74 H 03/17/25 14:47 Pulse Oximetry 96 03/17/25 14:47 Temperature 36.6 C 03/17/25 14:47 Temperature Source Oral 03/17/25 14:47 Pulse 64 03/17/25 14:47 Respiratory Rate 16 03/17/25 14:47 Respiratory Effort Normal 03/17/25 14:56 Respiratory Depth Normal 03/17/25 14:56 Blood Pressure 161/74 H 03/17/25 14:47 Pulse Oximetry 96 03/17/25 14:47 Oxygen Delivery Method Room Air 03/17/25 14:47 Oxygen Flow Rate 0 03/17/25 14:47 Pain Level 5 03/17/25 14:47 Medical Decision Making 74-year-old male with history of COPD presents for evaluation of chest pain. Patient had pain that began after exertion today and has been present for the last 3-1/2 hours. EKG is concerning for ST elevations in lead II and aV. Elevations are concerning for STEMI. No prior for comparison. Patient is given aspirin and fentanyl. [facility] [place] was consulted immediately after initial evaluation. Chest x-ray showed pulmonary artery prominence and peribronchial thickening which could indicate mild CHF. No infiltrate. Given patient was having chest pain that was radiating to his back I will check a CT dissection scan prior to starting heparin. Repeat EKG was performed at 1526. This shows persistent ST elevation in lead II and aVF as well as ST elevation in lead III. I do feel this is concerning for STEMI. I reviewed imaging from CT and we will go ahead with heparin at this time. Case was discussed with MARY Clarke from [facility] cardiology. I then spoke with Dr. Bowie fellow. He agrees that this does not meet STEMI criteria. Patient's chest pain appears to be stable at this time. Brilinta was ordered per Dr. Bowie. Patient will be transferred by [facility] air. Per Dr. Bowie will hold lysis at this time as chest pain is stable and patient should make in time to go straight to [facility]. 1625-received call phone call back from Dr. Bowie. They have been in touch with the helicopter and believe that patient will not make it in the 90 minute window. Have requested lysis. TNK was ordered. Patient does apparently have frequent falls however last fall was 2 months ago. Patient was consented for TNK with family present. I have gone over results of CT of thorax/abdomen pelvis with family. They are aware of the incidental finding of bladder nodule and the need for follow-up. Quality:SDOH Health Related Social Needs: Health related social needs feeling lonely/isolated (Z60.8) Critical Care Time Critical Care Time Attestation: CRITICAL CARE Total critical care time: 55 minutes Critical care interventions: Aspirin, fentanyl, IV heparin, cardiology consultation, family discussion Total critical care time included the assessment and discussions as described in the emergency department history, physical, and medical decision making. The critical care time provided excludes separately billable procedures. PFSH All Active Problems (Updated 03/17/25 @ 16:49 by Flor Sun MD) ST elevation (STEMI) myocardial infarction (Acute) Falls (Acute) Orthostatic hypotension (Acute) Hearing loss (Acute) BPH w urinary obs/LUTS (Acute) Central slip extensor tendon injury (boutonniere) (Acute) RMF Trigger finger, right middle finger (Acute) PERALTA (dyspnea on exertion) (Acute) Cerumen impaction (Acute) Dizziness (Acute) Family history of pancreatic cancer (Acute) Alcohol intake above recommended sensible limits (Acute) Right sided sciatica (Acute) Lumbar spondylosis (Acute) Bilateral primary osteoarthritis of hip (Acute) Bilateral hip pain (Acute) Abnormal auditory perception (Acute) Acute diffuse otitis externa of left ear (Acute) Sensation of fullness in left ear (Acute) Otitis media, left (Acute) Chronic prostatitis (Acute) History of toe surgery (Acute) Status post bunionectomy (Acute) Status post foot surgery (Acute) Status post wrist surgery (Acute) Back pain (Chronic) likely recurrent spinal stenosis Diabetes mellitus (Chronic) BPH without urinary obstruction (Acute) Calculus of kidney (Acute) recurrent UTI's w/ left nephrolithiasis Cataract (Acute) left IOL Chest pain (Acute 09/26/97) Presumed reflux Cystitis, acute (Acute 09/26/00) x 3 Depression (Acute) ED (erectile dysfunction) (Acute 06/13/09) Knee pain (Acute) left cruciate tear Lumbago (Acute 09/26/01) MRI 04/28=severe spinal stenosis Shoulder pain (Acute 12/25/05) MRI 12/31; supraspinatus tear on greater tubercle Spinal stenosis (Acute 03/01/11) Tobacco use disorder (Acute) stopped smoking 11/29/01 Medical History COPD (chronic obstructive pulmonary disease) (06/13/09) Cerebral palsy (09/28/08) (L) Side, can't use hand as well, and limps, does fall every once in a while Fatigue Rotator cuff tear, right (05/13/15) Sleep apnea (11/02/09) Swollen breast (05/27/05) 0.5 cm mass at 5 o'clock Surgical History Right carpal tunnel syndrome s/p R ECTR: 04/01/2024 S/P cataract surgery [facility] RIGHT FOOT SURGERY 06/13/09 Nasal septoplasty 2009 LEFT WRIST SURGERY 06/13/09 FEMUR FX 1972 WITH LATER SURGERY TO REMOVE PIN BUNIONECTOMY (~1993) BACK SURGERY 2001-L4-5 DECOMPRESSION FOR SPINAL STENOSIS Family History Mother , 67 Pancreatic cancer Breast cancer Sister , 57 Pancreatic cancer Father , 76 Heart disease COPD (chronic obstructive pulmonary disease) Maternal Grandfather Cancer Paternal Grandfather , age 69 Heart disease Maternal Grandmother Cancer Paternal Grandmother , age 73 Diabetes Daughter No problems noted. Daughter No problems noted. Social History Smoking/Tobacco Use Status: Former Tobacco Use tobacco type: cigarettes Quit Date: 11/29/19 Tobacco: How many years used: 37 Smokeless tobacco user: other (Cigarette ) Quit status: quit date established Second Hand Exposure: Yes Smoking risk assessment performed?: Yes Alcohol Intake: current Alcohol Intake frequency: a few times a week Alcohol type: wine and hard liquor Drug use: Never Substance use type: does not use Adopted: No Caregiver/Support person: No Household members: spouse Housing: house Communication Needs: None Education Level: high school Details: 12th grade Do you need help understanding health information?: Rarely current occupation: Retired Pets and animals: No Sexually active: No Do you think of yourself as: straight/heterosexual Current gender identity: male What is your relationship status?: How often do you talk on the phone with friends or family?: twice per week How often do you get together with friends or relatives?: once per week How often do you attend mandaeism or denominational services?: 4 or more times per year Do you belong to any clubs or organized social groups?: yes Panel score (0-1 are the most socially isolated patients): 4 What type of physical activity do you participate in: regular exercise Duration: < 15 minutes/day Frequency: 1-2 times per week Kayli/Jain: Orthodox 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 Agree to transfusion: Yes Seatbelt use: always Helmet use: No Drive intox or ride w/intox funeral driver: No Working smoke detector in home: Yes Carbon monox detector in home: Yes Firearms in home: Yes Firearms unloaded and locked: Yes Do you feel safe at home: Yes Do you feel safe in your relationship?: Yes Victim of physical abuse: No Victim of emotional abuse: No Victim of sexual abuse: No Would you like helpful sources: No PAWSS Have you Been Recently Intoxicated or Drunk Within the Last 30 days?: No Have you Ever Experienced Previous Episodes of Alcohol Withdrawal?: No Have you ever Experienced Withdrawal Seizures?: No Have you ever Experienced Delirium Tremens(DT)s?: No Have you ever undergone Alcohol Rehabilitation Treatment (i.e, inpt ot outpatient treatment programs)?: No Have you ever Experienced Blackouts?: No Have you ever Combined Alcohol with other Downers within the last 90 days?: No Have you ever Combined Alcohol with any other Substance of Abuse during the last 90 days?: No Positive Blood Alcohol level on Presentation? [PCS.BAL]: No Evidence of Increased Autonomic Activity (i.e. HR>120, tremor, sweating, agitation, nausea)?: No Result: 0
--- NOTE | 2025-03-17 15:15 | RT.EKG_ITS ---
APPROVED REPORT Exam: Resting ECG Reason for Exam: chest pain Patient Location: E HR:55 bpm ECG Measurements Heart Rate 55 AXIS UT 201 P 41 QRSd 102 QRS 85 QT 420 T 74 QTc 398 Conclusion Sinus bradycardia...rate< 60 Atrial premature complex...SV complex w/ short R-R interval Sinus bradycardia with ST elevations II, III, avF consistent with STEMI. WD
[2025-03-17] MEDS: Aspirin 81 MG CHEW 324 MG CH (15:17)
[2025-03-17] MEDS: fentaNYL 100 MCG/2 ML VIAL 50 MCG IVP (15:17)
[2025-03-17 15:20] LABS: Abs Immature Grans 0.17 10^3/uL (0.0-0.06); Absolute Basophil Count 0.05 10^3/uL (0.0-0.2); Absolute Eosinophil Count 0.13 10^3/uL (0.0-0.7); Absolute Monocyte Count 0.76 10^3/uL (0.1-0.8); Absolute Neutrophil Count 5.97 10^3/uL (1.2-6.7); Basophils % 0.6 %; Eosinophils % 1.5 %; HCT 40.3 % (40.0-50.0); HGB 13.3 g/dL (13.5-17.5); Lymphocytes % 17.5 %; MCH 30.3 pg (27.0-33.0); MCV 92 fL (80-95); MPV 10.4 fL (8.0-11.0); Monocytes % 8.9 %; Neutrophils % 69.5 %; Platelet Count 263 10^3/uL (130-400); RBC 4.39 10^6/uL (4.36-5.78); RDW 14.2 % (11.8-14.1); RDW-SD 47.9 fL; WBC 8.58 10^3/uL (4.4-10.8)
[2025-03-17 15:24] LABS: Prothrombin Time 10.5 sec (9.1-11.1)
--- NOTE | 2025-03-17 15:30 | DI.CT_ITS ---
Exam(s) CT THORAX ABD/PEL CTA EXAM: CT THORAX ABD/PEL CTA CLINICAL HISTORY: Chest pain concern for dissection. TECHNIQUE: Imaging Protocol: Axial CT angiography was performed with multi-slice acquisition and mu lti-planar and/or 3D reconstructions. Computer aided detection (CAD) was utilized. CONTRAST MATERIAL: Intravenous: Omnipaque 350 Contrast volume:100 ml Intravenous: Omnipaque 350 Contrast volume:125 ml COMPARISON: CT RENAL COLIC WO CONTRAST from 10/18/2013 CT,NM,TMT NM MPI REST STRESS GRP from 04/15/2023 CR XR PORTABLE CHEST AP from 03/17/2025 FINDINGS: CHEST: Pulmonary Arteries: Bolus timing set for aorta. No gross evidence of filling defects to suggest pulm onary emboli. The main pulmonary arteries are prominent, measuring 3 cm on the left and 2.8 cm on t he right. Tracheobronchial tree: No bronchiectasis or mucus plugging. Mediastinum and Sandy: No dominant adenopathy or fluid collection. Pulmonary parenchyma: Mild emphysematous changes at the apices. No consolidation or dominant measura ble mass. Mild dependent changes. No definite findings for CHF. 6 millimeter nodule noted in the r ight upper lobe. This appears stable from 2022. Pleura: No effusion. No pneumothorax. Heart: The heart is mildly dilated. Moderate coronary artery calcifications are seen. Aorta: Thoracic aorta non-dilated. Mild atherosclerotic changes. Bones: Prominent flowing osteophytes consistent with DISH. Tubes, Catheters, and Lines: None. Soft tissues: Unremarkable. ABDOMEN and PELVIS: Liver: Normal size. Normal density. No suspicious measurable mass. Portal, Superior Mesenteric, and Splenic Veins: Unremarkable. Gallbladder and Biliary Tract: No radiodense calculus. No biliary dilatation. Pancreas: Markedly atrophic. Scattered calcifications. Spleen: Normal. Adrenals: No masses seen. Kidneys: Normal size, contour and axis. Small simple cyst upper pole right kidney. 5 millimeter sto ne lower pole of the left kidney. Other tiny nonobstructing stones. No obstructive uropathy. No mas ses seen. Vasculature: Abdominal aorta non-dilated. Moderate atherosclerotic changes. No evidence of dissecti on or significant stenosis. Branch vessels are patent. Bowel: No obstruction or bowel wall thickening. Appendix is unremarkable. Diverticulosis. No evide nce of diverticulitis. Peritoneal Cavity: No ascites, collection or mesenteric inflammatory response. Lymph Nodes: Within normal limits. Soft Tissues: Small bilateral fat containing inguinal hernias. Bladder: Several calcifications are noted in the dependent portion of the bladder, greater on the rig ht. There is a 12 millimeter focal nodule at the posterior lateral left bladder wall which is enhanc ing. Reproductive Organs: Prostate moderately enlarged. Bones: Prominent endplate osteophytes. Schmorl's nodes. Bilateral L5 spondylolysis and spondylolist hesis as well as laminectomy defect. Present on prior exam. IMPRESSION: 1. No evidence of aortic dissection or other acute abnormality in the chest. No evidence of central pulmonary embolism. 2. No acute abdominal or pelvic process. 3. 12 millimeter nodule noted on the left bladder wall. Urology consultation recommended. Bladder c alculi also present. Nonobstructing bilateral renal calculi. Unexpected findings RADIATION DOSE DELIVERED: Total DLP Total DLP Total DLP Total DLP Total DLP Total DLP DATA REPOSITORY: All CT scans at this facility are submitted to the National Radiology Data Registry (NRDR) Dose Index Registry (DIR) with the [employer] (ACR). RADIATION OPTIMIZATION: All CT scans at this facility use at least one of these dose optimization te chniques: automated exposure control; mA and/or kV adjustment per patient size (includes targeted exa ms where dose is matched to clinical indication); or iterative reconstruction.
[2025-03-17 15:31] LABS: ALT 27 U/L (16-63); AST 27 U/L (15-37); Albumin 4.1 g/dL (3.4-5.0); Alkaline Phosphatase 82 U/L (46-116); Anion Gap 7.1 mmol/L (3-11); BUN 17 mg/dL (7-18); Bilirubin, Total 1.2 mg/dL (0.2-1.0); CO2 25.9 mmol/L (21.0-32.0); CREATININE 1.4 mg/dL (0.70-1.30); Calcium 10.4 mg/dL (8.5-10.1); Chloride 105 mmol/L (98-107); Estimated GFR 53.07 (mL/min/1.73m2); Glucose 155 mg/dL (74-106); Magnesium 1.8 mg/dL (1.8-2.4); Potassium 3.9 mmol/L (3.5-5.1); Sodium 138 mmol/L (136-145); Total Protein 7.5 g/dL (6.4-8.2)
[2025-03-17 15:33] LABS: Troponin I 229 ng/L (<or=76)
[2025-03-17 15:51] LABS: NT-proBNP 317 pg/mL (<300)
[2025-03-17] MEDS: Omnipaque 350 MG/ML 100 ML BTL IJ (15:57)
[2025-03-17] MEDS: Normal Saline - Diluent 50 ML VIAL IJ ×2 (16:03→16:06)
[2025-03-17] MEDS: Omnipaque 350 MG/ML 50 ML BTL 25 ML IJ (16:05)
[2025-03-17] MEDS: Heparin in 0.45% NaCl 25,000 UNIT/250 ML BAG 10 UNIT IVINF (16:15)
[2025-03-17] MEDS: Ticagrelor 90 MG TAB 180 MG PO (16:25)
[2025-03-17] MEDS: Tenecteplase 50 MG KIT IVP (16:55)
[2025-03-17 16:56] LABS: Troponin I 398 ng/L (<or=76)
--- NOTE | 2025-03-20 07:57 | NUR.NOTE ---
Accessed pt chart to reconcile EKG orders with EKG?s in [facility]. Nursing Note:
== END 2025-03-17 20:02 | disposition short-term general hospital (02) ==
PROVIDERS: Emergency Provider Emergency Medicine Emergency Medical Services; PCP Family Medicine
DX: I21.3 ST elevation (STEMI) myocardial infarction of unspecified site (principal); J44.9 Chronic obstructive pulmonary disease, unspecified; Z87.891 Personal history of nicotine dependence
CPT/HCPCS: 36415; 71275; 80053; 93005; 96374; 96375; 99285; 71045; 74174; 83735; 83880; 84484; 85025; 85610; 85730; 93010; J1644; J3010; J3101; J3490; Q9967

== ENCOUNTER → 2025-03-23 09:02 | Outpatient (BNVA) | payer MEDICARE, SELFPAY | PROVIDERS: PCP Family Medicine; Referring Provider Family Medicine; Visit Provider Nurse Practitioner Gerontology | DX: N40.1 Benign prostatic hyperplasia with lower urinary tract symptoms (principal); N13.8 Other obstructive and reflux uropathy; N21.0 Calculus in bladder; N32.89 Other specified disorders of bladder | CPT/HCPCS: 99213 ==

== ENCOUNTER 2025-03-23 13:38 | Outpatient (RCR) | payer MEDICARE, SELFPAY | END 2025-03-27 23:59 | disposition home or self-care (01) | LOC: CR 13:38 | PROVIDERS: PCP Family Medicine; Visit Provider Internal Medicine Cardiovascular Disease ==

== ENCOUNTER → 2025-04-05 14:25 | Outpatient (BNVA) | payer MEDICARE, SELFPAY | PROVIDERS: PCP Family Medicine; Visit Provider Nurse Practitioner Gerontology | DX: N40.1 Benign prostatic hyperplasia with lower urinary tract symptoms (principal); N13.8 Other obstructive and reflux uropathy; R39.9 Unspecified symptoms and signs involving the genitourinary system | CPT/HCPCS: 99214; 81003; 51798 ==

== ENCOUNTER 2025-04-16 09:42 | Outpatient (RCR) | payer MEDICARE, SELFPAY ==
--- NOTE | 2025-04-20 09:05 | W.HOLTRPT ---
Date of service: 04/20/25 Time of Service: 09:05 Holter Monitor Report Referring Provider:: Erik Orozco Indications:: Bradycardia Holter Monitor Note: This is a 48-hour Holter monitor. Rhythm throughout was sinus with an average heart rate overall at 57. Minimum was 35, maximum 111. There were very very rare isolated premature ventricular contractions. There were rare premature atrial contractions. There was no atrial fibrillation, no high-grade AV block, no pauses greater than 3 seconds. No symptoms were reported
== END 2025-04-26 23:59 | disposition home or self-care (01) ==
LOC: CARDOPNVT 09:42
PROVIDERS: PCP Family Medicine; Referring Provider Nurse Practitioner Family; Visit Provider Internal Medicine Cardiovascular Disease
DX: R00.1 Bradycardia, unspecified (principal)
CPT/HCPCS: 93227; 93225; 93226

== ENCOUNTER 2025-04-26 09:00 | Outpatient (RCR) | payer MEDICARE, SELFPAY ==
--- NOTE | 2025-04-02 11:00 | RT.EKG_ITS ---
APPROVED REPORT Exam: Resting ECG Reason for Exam: cardiac rehab intake Patient Location: O HR:54 bpm ECG Measurements Heart Rate 54 AXIS NC 127 P 5 QRSd 105 QRS 67 QT 443 T 56 QTc 420 Conclusion Sinus rhythm...normal P axis, V-rate 50- 99 Borderline low voltage, extremity leads...all extremity leads <0.6mV Otherwise normal ECG
--- NOTE | 2025-04-09 10:01 | NUR.NOTE ---
Nursing Note: Patient presented to CR this morning and stated he felt unwell today. States he was lightheaded and noted bright red blood in his urine. BP noted to be 90s/50s, all other VSS. CR nurse called PCP's office and reported all above info. Patient to be seen by PCP at 3:20 pm for assessment. S/S to seek care urgently discussed with patient. Patient stated understanding.
== END 2025-04-26 23:59 | disposition home or self-care (01) ==
LOC: CR 09:00
PROVIDERS: PCP Family Medicine; Visit Provider Internal Medicine Cardiovascular Disease
DX: I21.3 ST elevation (STEMI) myocardial infarction of unspecified site (principal); Z95.5 Presence of coronary angioplasty implant and graft; Z51.89 Encounter for other specified aftercare
CPT/HCPCS: S9472

== ENCOUNTER → 2025-05-25 12:49 | Outpatient (BNVA) | payer MEDICARE, SELFPAY | PROVIDERS: PCP Family Medicine; Referring Provider Family Medicine; Visit Provider Urology | DX: N40.1 Benign prostatic hyperplasia with lower urinary tract symptoms (principal); N13.8 Other obstructive and reflux uropathy; N21.0 Calculus in bladder; N32.89 Other specified disorders of bladder | CPT/HCPCS: 81002; 52000 ==

== ENCOUNTER 2025-05-26 09:00 | Outpatient (RCR) | payer MEDICARE, SELFPAY | END 2025-05-27 23:59 | disposition home or self-care (01) | LOC: CR 09:00 | PROVIDERS: PCP Family Medicine; Visit Provider Internal Medicine Cardiovascular Disease | DX: I21.29 ST elevation (STEMI) myocardial infarction involving other sites (principal); Z95.5 Presence of coronary angioplasty implant and graft; Z51.89 Encounter for other specified aftercare | CPT/HCPCS: S9472 ==

== ENCOUNTER 2025-06-25 09:00 | Outpatient (RCR) | payer MEDICARE, SELFPAY | END 2025-06-27 23:59 | disposition home or self-care (01) | LOC: CR 09:00 | PROVIDERS: PCP Family Medicine; Visit Provider Internal Medicine Cardiovascular Disease | DX: I21.29 ST elevation (STEMI) myocardial infarction involving other sites (principal); Z95.5 Presence of coronary angioplasty implant and graft; Z51.89 Encounter for other specified aftercare | CPT/HCPCS: S9472 ==

== ENCOUNTER 2025-07-05 09:00 | Outpatient (RCR) | payer MEDICARE, SELFPAY | END 2025-07-27 23:59 | disposition home or self-care (01) | LOC: CR 09:00 | PROVIDERS: PCP Family Medicine; Visit Provider Internal Medicine Cardiovascular Disease | DX: I21.29 ST elevation (STEMI) myocardial infarction involving other sites (principal); Z95.5 Presence of coronary angioplasty implant and graft; Z51.89 Encounter for other specified aftercare | CPT/HCPCS: S9472 ==

== ENCOUNTER → 2025-09-16 06:19 | Outpatient (CLI) | payer MEDICARE, SELFPAY ==
[2025-09-16] MEDS: Gadoterate meglumine 20 ML VIAL IVP (08:17)
--- NOTE | 2025-09-16 09:15 | DI.MRI_ITS ---
Exam(s) MR ABDOMEN WO/W EXAM: MR ABDOMEN WO/W CLINICAL HISTORY: assess pancreatic lesion seen on ct imaging,k86.89,k86.9 TECHNIQUE: Multiplanar multisequence MRI of the Abdomen was performed. CONTRAST MATERIAL: IV Contrast: 19 mL of Dotarem contrast administered. COMPARISON: CT CT THORAX ABD/PEL CTA from 03/17/[address] UROGRAM(LEB/SHORTY) from 07/05/2025 FINDINGS: The T1 pre and postcontrast images are limited by motion. Lung bases: Unremarkable. Liver: Unremarkable. Pancreas: Atrophic pancreas. Cystic area measuring 13 x 8 by 13 millimeters directly adjacent to pancreatic duct. It has a somewhat lobulated appearance and may include septations. There is a question of peripheral enhancement following contrast. Evaluation is limited due to motion. Gallbladder and Bile Ducts: Unremarkable. Adrenals: Unremarkable. Kidneys: Simple cyst lower pole right kidney. Simple cyst upper pole right kidney. Spleen: Unremarkable. Aorta: Unremarkable. Soft Tissues: Unremarkable. Bone: Degenerative changes in the spine. Lymph Nodes: Unremarkable. Stomach and bowel: Unremarkable. Peritoneal cavity: Unremarkable. No evidence of ascites. IMPRESSION: 13 millimeter lesion in the body of the pancreas may communicate with the main duct and may represent an IPMN . It does not appear completely cystic and biopsy is suggested. Unexpected findings DATA REPOSITORY:
== END ==
LOC: DI 06:20
PROVIDERS: PCP Family Medicine; Visit Provider Family Medicine
DX: K86.89 Other specified diseases of pancreas (principal)
CPT/HCPCS: 74183